=== PATIENT | male | born 1935 | race Caucasian/White ===

== ENCOUNTER 2019-02-01 21:36 | Emergency (ER) | payer OTHER ==
[~2019-02-01] VITALS: Ht 177.8 cm; Wt 108.9 kg
[~2019-02-01 21:36] MED LIST: ALBU3IS INH; AMLO10 PO; ASPI81CH PO; BACITO TP; BISM300CH PO; BUDE10.22 IH; CHOL10002 PO; HYDCHL25 PO; LOSA50 PO; MECL12.5 PO; METO25ER PO; MULVITMIND PO; Milk Of Ma400 MG/5 M PO; OMEP20ER PO; POLYOX WSR-3011 GM PO; POTCHL10ER PO; TAMS.4ER PO; Vibramycin100 MG PO
[2019-02-01 22:42] LABS: BASOPHILS ABSOLUTE AUTO 0.06 K/mm3 (0.00-0.23); BASOPHILS PERCENT AUTO 1 % (0-2); EOSINOPHILS ABSOLUTE AUTO 0.24 K/mm3 (0.00-0.68); EOSINOPHILS PERCENT AUTO 2 % (0-6); Hematocrit 42.5 % (37.0-53.0); Hemoglobin 14.1 g/dL (13.5-17.5); IMMATURE GRAN ABSOLUTE AUTO 0.03 K/mm3 (0.00-0.10); IMMATURE GRAN PERCENT AUTO 0 % (0-1); LYMPHOCYTES PERCENT AUTO 14 % (21-46); MONOCYTES ABSOLUTE AUTO 0.96 K/mm3 (0.16-1.47); MONOCYTES PERCENT AUTO 9 % (4-13); Mean Corpuscular HGB 32.3 pg (26.0-34.0); Mean Corpuscular HGB Conc 33.2 g/dL (31.5-36.5); Mean Corpuscular Volume 98 fL (80-100); Mean Platelet Volume 10.5 fL (9.1-12.4); NEUTROPHILS ABSOLUTE AUTO 7.63 K/mm3 (1.96-9.15); NEUTROPHILS PERCENT AUTO 73 % (41-73); Platelet Count 165 K/mm3 (150-400); RDW Coefficient Variation 12.4 % (11.7-14.2); RDW Standard Deviation 44.7 fL (35.1-46.3); Red Blood Cell Count 4.36 M/mm3 (4.30-5.90); White Blood Cell Count 10.42 K/mm3 (4.00-11.30)
[2019-02-01 23:01] LABS: Alanine Aminotransfer (ALT/SGP 26 U/L (12-78); Albumin, Blood 3.6 g/dL (3.4-5.0); Albumin/Globulin Ratio 0.9 (0.8-1.8); Alk Phos 108 U/L (50-136); Anion Gap 5 mmol/L (6-16); Aspartate Aminotrans (AST/SGOT 31 U/L (12-37); Bilirubin, Total 0.6 mg/dL (0.1-1.0); Blood Urea Nitrogen 18 mg/dL (8-24); Bun/Creatinine Ratio 25.6 (12.0-20.0); CO2, Blood 31 mmol/L (21-32); Calcium, Blood 9.6 mg/dL (8.5-10.1); Chloride, Blood 94 mmol/L (98-108); Globulin, Blood 4.2 g/dL (2.2-4.0); Glomerular Filtration Rate >60 (60-); Glucose, Blood 108 mg/dL (70-99); Potassium, Blood 3.9 mmol/L (3.5-5.5); Sodium, Blood 130 mmol/L (136-145); Total Protein, Blood 7.8 g/dL (6.4-8.2)
[2019-02-01 23:28] LABS: Troponin I <0.015 ng/mL (0.000-0.040)
[2019-02-01] MEDS ORDERED: Ultram50 MG PO (23:52)
[2019-02-01] MEDS ORDERED: Cipro500 MG PO (23:52)
== END 2019-02-02 01:00 | disposition home or self-care (01) ==
LOC: ER 21:36
PROVIDERS: Emergency Medicine
DX: H60.91 Unspecified otitis externa, right ear (principal); J44.9 Chronic obstructive pulmonary disease, unspecified; I10 Essential (primary) hypertension; K21.9 Gastro-esophageal reflux disease without esophagitis; Z86.73 Personal history of transient ischemic attack (TIA), and cerebral infarction without residual deficits; Z87.01 Personal history of pneumonia (recurrent); Z87.891 Personal history of nicotine dependence; Z79.899 Other long term (current) drug therapy
CPT/HCPCS: 36415; 80053; 84484; 85025; 93005; 93010; 94640; 99283-25

== ENCOUNTER 2019-02-02 16:39 | Emergency (ER) | payer OTHER ==
[~2019-02-02] VITALS: Ht 177.8 cm; Wt 108.9 kg
[~2019-02-02 16:39] MED LIST changes: +Cipro500 MG PO; +Ultram50 MG PO
[2019-02-02 17:20] LABS: BASOPHILS ABSOLUTE AUTO 0.08 K/mm3 (0.00-0.23); BASOPHILS PERCENT AUTO 1 % (0-2); EOSINOPHILS ABSOLUTE AUTO 0.26 K/mm3 (0.00-0.68); EOSINOPHILS PERCENT AUTO 3 % (0-6); Hematocrit 42.3 % (37.0-53.0); Hemoglobin 13.9 g/dL (13.5-17.5); IMMATURE GRAN ABSOLUTE AUTO 0.02 K/mm3 (0.00-0.10); IMMATURE GRAN PERCENT AUTO 0 % (0-1); LYMPHOCYTES ABSOLUTE AUTO 1.48 K/mm3 (0.84-5.20); LYMPHOCYTES PERCENT AUTO 19 % (21-46); MONOCYTES ABSOLUTE AUTO 0.74 K/mm3 (0.16-1.47); MONOCYTES PERCENT AUTO 10 % (4-13); Mean Corpuscular HGB 32.3 pg (26.0-34.0); Mean Corpuscular HGB Conc 32.9 g/dL (31.5-36.5); Mean Corpuscular Volume 98 fL (80-100); Mean Platelet Volume 10.5 fL (9.1-12.4); NEUTROPHILS ABSOLUTE AUTO 5.18 K/mm3 (1.96-9.15); NEUTROPHILS PERCENT AUTO 67 % (41-73); Platelet Count 163 K/mm3 (150-400); RDW Coefficient Variation 12.4 % (11.7-14.2); RDW Standard Deviation 45.3 fL (35.1-46.3); Red Blood Cell Count 4.31 M/mm3 (4.30-5.90); White Blood Cell Count 7.76 K/mm3 (4.00-11.30)
[2019-02-02 17:31] LABS: Alanine Aminotransfer (ALT/SGP 29 U/L (12-78); Albumin, Blood 3.6 g/dL (3.4-5.0); Albumin/Globulin Ratio 0.9 (0.8-1.8); Alk Phos 98 U/L (50-136); Anion Gap 3 mmol/L (6-16); Aspartate Aminotrans (AST/SGOT 41 U/L (12-37); Bilirubin, Total 0.5 mg/dL (0.1-1.0); Blood Urea Nitrogen 14 mg/dL (8-24); Bun/Creatinine Ratio 19.7 (12.0-20.0); CO2, Blood 35 mmol/L (21-32); Calcium, Blood 9.6 mg/dL (8.5-10.1); Chloride, Blood 97 mmol/L (98-108); Creatinine, Blood 0.71 mg/dL (0.60-1.20); Globulin, Blood 4.2 g/dL (2.2-4.0); Glomerular Filtration Rate >60 (60-); Glucose, Blood 97 mg/dL (70-99); Potassium, Blood 3.7 mmol/L (3.5-5.5); Sodium, Blood 135 mmol/L (136-145); Total Protein, Blood 7.8 g/dL (6.4-8.2)
== END 2019-02-02 21:08 | disposition home or self-care (01) ==
LOC: ER 16:39
PROVIDERS: Physician Assistant
DX: H60.91 Unspecified otitis externa, right ear (principal); J44.9 Chronic obstructive pulmonary disease, unspecified; I10 Essential (primary) hypertension; K21.9 Gastro-esophageal reflux disease without esophagitis; Z87.891 Personal history of nicotine dependence; Z87.01 Personal history of pneumonia (recurrent); Z86.73 Personal history of transient ischemic attack (TIA), and cerebral infarction without residual deficits; Z79.899 Other long term (current) drug therapy
CPT/HCPCS: 36415; 70450; 80053; 85025; 99284-25; A9270

== ENCOUNTER 2019-03-22 10:23 | Emergency (ER) | payer OTHER ==
[~2019-03-22] VITALS: Ht 177.8 cm; Wt 104.3 kg
[2019-03-22 11:11] LABS: BASOPHILS ABSOLUTE AUTO 0.11 K/mm3 (0.00-0.23); BASOPHILS PERCENT AUTO 1 % (0-2); EOSINOPHILS ABSOLUTE AUTO 0.41 K/mm3 (0.00-0.68); EOSINOPHILS PERCENT AUTO 5 % (0-6); Hematocrit 43.8 % (37.0-53.0); Hemoglobin 14.3 g/dL (13.5-17.5); IMMATURE GRAN ABSOLUTE AUTO 0.02 K/mm3 (0.00-0.10); IMMATURE GRAN PERCENT AUTO 0 % (0-1); LYMPHOCYTES PERCENT AUTO 28 % (21-46); MONOCYTES PERCENT AUTO 8 % (4-13); Mean Corpuscular HGB 31.6 pg (26.0-34.0); Mean Corpuscular HGB Conc 32.6 g/dL (31.5-36.5); Mean Corpuscular Volume 97 fL (80-100); Mean Platelet Volume 10.9 fL (9.1-12.4); NEUTROPHILS ABSOLUTE AUTO 4.36 K/mm3 (1.96-9.15); NEUTROPHILS PERCENT AUTO 57 % (41-73); Platelet Count 166 K/mm3 (150-400); RDW Coefficient Variation 12.4 % (11.7-14.2); Red Blood Cell Count 4.52 M/mm3 (4.30-5.90)
[2019-03-22] MEDS ORDERED: ALBU3IS INH (11:21)
[2019-03-22] MEDS ORDERED: ALBU90OI (11:22)
[2019-03-22] MEDS ORDERED: ALFUZOSIN HCL10 MG PO (11:22)
[2019-03-22] MEDS ORDERED: Geri-Hydrolac140 GM (11:22)
[2019-03-22] MEDS ORDERED: Duoneb 2.5-0.5 M3 ML (11:22)
[2019-03-22 11:23] LABS: Alanine Aminotransfer (ALT/SGP 26 U/L (12-78); Albumin, Blood 3.4 g/dL (3.4-5.0); Albumin/Globulin Ratio 0.8 (0.8-1.8); Alk Phos 128 U/L (50-136); Anion Gap 3 mmol/L (6-16); Aspartate Aminotrans (AST/SGOT 21 U/L (12-37); Bilirubin, Total 0.5 mg/dL (0.1-1.0); Blood Urea Nitrogen 13 mg/dL (8-24); Bun/Creatinine Ratio 17.4 (12.0-20.0); CO2, Blood 31 mmol/L (21-32); Calcium, Blood 9.5 mg/dL (8.5-10.1); Chloride, Blood 104 mmol/L (98-108); Creatinine, Blood 0.75 mg/dL (0.60-1.20); Globulin, Blood 4.2 g/dL (2.2-4.0); Glomerular Filtration Rate >60 (60-); Glucose, Blood 96 mg/dL (70-99); Potassium, Blood 4.3 mmol/L (3.5-5.5); Sodium, Blood 138 mmol/L (136-145); Total Protein, Blood 7.6 g/dL (6.4-8.2); Troponin I <0.015 ng/mL (0.000-0.040)
[2019-03-22] MEDS ORDERED: ZYRTEC10 M2 PO (11:23)
[2019-03-22] MEDS ORDERED: ASPI325 (11:23)
[2019-03-22] MEDS ORDERED: ASCO500 PO (11:23)
[2019-03-22] MEDS ORDERED: CIPHYDOTSU (11:24)
[2019-03-22] MEDS ORDERED: Vitamin D2000 UNIT PO (11:24)
[2019-03-22] MEDS ORDERED: CYAN500 PO (11:25)
[2019-03-22] MEDS ORDERED: Colace100 MG PO (11:25)
[2019-03-22] MEDS ORDERED: Flonase 0.05% N16 GM (11:25)
[2019-03-22] MEDS ORDERED: Perforomis20 MCG/2 M (11:25)
[2019-03-22] MEDS ORDERED: HYDR454TO (11:26)
[2019-03-22] MEDS ORDERED: Cough Syru100 MG/5 M (11:26)
[2019-03-22] MEDS ORDERED: HYDCHL25 PO (11:26)
[2019-03-22] MEDS ORDERED: LOSARTAN POTAS100 MG PO (11:26)
[2019-03-22] MEDS ORDERED: METO25 PO (11:27)
[2019-03-22] MEDS ORDERED: NITR.4SL (11:27)
[2019-03-22] MEDS ORDERED: OMEPRAZOLE20 MG PO (11:27)
[2019-03-22] MEDS ORDERED: POTA10T PO (11:28)
[2019-03-22] MEDS ORDERED: Oxybutynin Chlor5 M1 PO (11:28)
[2019-03-22] MEDS ORDERED: AMLO10 PO (11:29)
== END 2019-03-22 12:55 | disposition home or self-care (01) ==
LOC: ER 10:23
PROVIDERS: Emergency Medicine
DX: J40 Bronchitis, not specified as acute or chronic (principal); R07.89 Other chest pain; Z88.8 Allergy status to other drugs, medicaments and biological substances; I10 Essential (primary) hypertension; J44.9 Chronic obstructive pulmonary disease, unspecified; Z79.51 Long term (current) use of inhaled steroids
CPT/HCPCS: 71046; 80053; 83880; 84484; 85025; 93005; 93010; 99285-25

== ENCOUNTER 2020-08-25 08:07 | Inpatient (IN) | payer OTHER, MEDICARE ==
[~2020-08-25] VITALS: Ht 172.7 cm; Wt 95.8 kg
[~2020-08-25 08:07] MED LIST changes: +ALBU90OI; +ALFUZOSIN HCL10 MG PO; +ASCO500 PO; +ASPI325; +CIPHYDOTSU; +CYAN500 PO; +Colace100 MG PO; +Cough Syru100 MG/5 M; +Duoneb 2.5-0.5 M3 ML; +Flonase 0.05% N16 GM; +Geri-Hydrolac140 GM; +HYDR454TO; +LOSARTAN POTAS100 MG PO; +METO25 PO; +NITR.4SL; +OMEPRAZOLE20 MG PO; +Oxybutynin Chlor5 M1 PO; +POTA10T PO; +Perforomis20 MCG/2 M; +Vitamin D2000 UNIT PO; +ZYRTEC10 M2 PO
[2020-08-25 08:38] LABS: BASOPHILS ABSOLUTE AUTO 0.09 K/mm3 (0.00-0.23); BASOPHILS PERCENT AUTO 1 % (0-2); EOSINOPHILS ABSOLUTE AUTO 0.37 K/mm3 (0.00-0.68); EOSINOPHILS PERCENT AUTO 3 % (0-6); Hematocrit 48.3 % (37.0-53.0); Hemoglobin 15.5 g/dL (13.5-17.5); IMMATURE GRAN ABSOLUTE AUTO 0.02 K/mm3 (0.00-0.10); IMMATURE GRAN PERCENT AUTO 0 % (0-1); LYMPHOCYTES PERCENT AUTO 21 % (21-46); MONOCYTES ABSOLUTE AUTO 0.77 K/mm3 (0.16-1.47); MONOCYTES PERCENT AUTO 7 % (4-13); Mean Corpuscular HGB 31.1 pg (26.0-34.0); Mean Corpuscular HGB Conc 32.1 g/dL (31.5-36.5); Mean Corpuscular Volume 97 fL (80-100); Mean Platelet Volume 10.5 fL (9.1-12.4); NEUTROPHILS PERCENT AUTO 68 % (41-73); Platelet Count 184 K/mm3 (150-400); RDW Coefficient Variation 12.8 % (11.7-14.2); RDW Standard Deviation 45.4 fL (35.1-46.3); Red Blood Cell Count 4.98 M/mm3 (4.30-5.90); White Blood Cell Count 11.55 K/mm3 (4.00-11.30)
[2020-08-25 08:57] LABS: Alanine Aminotransfer (ALT/SGP 19 U/L (12-78); Albumin, Blood 3.6 g/dL (3.4-5.0); Albumin/Globulin Ratio 0.8 (0.8-1.8); Alk Phos 101 U/L (50-136); Anion Gap 6 mmol/L (6-16); Aspartate Aminotrans (AST/SGOT 28 U/L (12-37); Bilirubin, Total 0.7 mg/dL (0.1-1.0); Blood Urea Nitrogen 17 mg/dL (8-24); CO2, Blood 31 mmol/L (21-32); Calcium, Blood 10.1 mg/dL (8.5-10.1); Chloride, Blood 102 mmol/L (98-108); Globulin, Blood 4.4 g/dL (2.2-4.0); Glomerular Filtration Rate >60 (60-); Glucose, Blood 126 mg/dL (70-99); Potassium, Blood 3.7 mmol/L (3.5-5.5); Sodium, Blood 139 mmol/L (136-145); Troponin I <0.015 ng/mL (0.000-0.040)
--- NOTE | 2020-08-25 16:39 | NUR ---
DR CALDWELL SAW PT, ORDERED CT TO SUCTION UNTIL 1900, THEN TO WATERSEAL FOR 12 HOURS UNTIL XRAY IN MORNING. DR WILL REVIEW XRAY AND ROUND ON PT IN MORNING.
--- NOTE | 2020-08-26 03:55 | NUR ---
CALL RECIEVED FROM PT AT APPROX [phone]. PT FOUND SITTING ON EDGE OF BED WITH CHEST TUBE NOT IN PLACE. CONTINUOUS PULSE OX READING O2 95% ON 3LO2 VIA NC. STERILE GAUZE DRESSING AND TEGADERM IMMEDIATELY PLACED OVER INSERTION SITE WITH TIGHT SEAL. NO DRG NOTED TO SITE. LUNGS DIMINISHED WITH EXPIRTATORY WHEEZE WHICH IS UNCHANGED FROM PREVIOUS ASSESSMENT. LUNGS MORE DIMINISHED ON RT SIDE WHICH AGAIN, IS UNCHANGED FROM PREVIOUS ASSESSMENT. PT DOES NOT APPEAR TO BE IN RESPIRATORY DISTRESS AT THIS TIME. CALL PLACED TO HOSPITALIST DR. HENAO. NEW ORDER FOR STAT CHEST XRAY. MOLD YARD WORKER NOTIFIED OF NEW ORDER.
[2020-08-26 04:22] LABS: BASOPHILS ABSOLUTE AUTO 0.08 K/mm3 (0.00-0.23); BASOPHILS PERCENT AUTO 1 % (0-2); EOSINOPHILS ABSOLUTE AUTO 0.34 K/mm3 (0.00-0.68); EOSINOPHILS PERCENT AUTO 3 % (0-6); Hematocrit 43.8 % (37.0-53.0); Hemoglobin 14.2 g/dL (13.5-17.5); IMMATURE GRAN ABSOLUTE AUTO 0.03 K/mm3 (0.00-0.10); IMMATURE GRAN PERCENT AUTO 0 % (0-1); LYMPHOCYTES ABSOLUTE AUTO 1.92 K/mm3 (0.84-5.20); LYMPHOCYTES PERCENT AUTO 18 % (21-46); MONOCYTES ABSOLUTE AUTO 0.87 K/mm3 (0.16-1.47); MONOCYTES PERCENT AUTO 8 % (4-13); Mean Corpuscular HGB 31.1 pg (26.0-34.0); Mean Corpuscular HGB Conc 32.4 g/dL (31.5-36.5); Mean Corpuscular Volume 96 fL (80-100); Mean Platelet Volume 10.4 fL (9.1-12.4); NEUTROPHILS ABSOLUTE AUTO 7.22 K/mm3 (1.96-9.15); NEUTROPHILS PERCENT AUTO 69 % (41-73); Platelet Count 159 K/mm3 (150-400); RDW Coefficient Variation 12.8 % (11.7-14.2); RDW Standard Deviation 45.4 fL (35.1-46.3); Red Blood Cell Count 4.56 M/mm3 (4.30-5.90); White Blood Cell Count 10.46 K/mm3 (4.00-11.30)
[2020-08-26 04:40] LABS: Alanine Aminotransfer (ALT/SGP 21 U/L (12-78); Albumin, Blood 3.1 g/dL (3.4-5.0); Albumin/Globulin Ratio 0.8 (0.8-1.8); Alk Phos 85 U/L (50-136); Anion Gap 4 mmol/L (6-16); Aspartate Aminotrans (AST/SGOT 31 U/L (12-37); Bilirubin, Total 0.7 mg/dL (0.1-1.0); Blood Urea Nitrogen 17 mg/dL (8-24); Bun/Creatinine Ratio 20.9 (12.0-20.0); CO2, Blood 31 mmol/L (21-32); Calcium, Blood 9.1 mg/dL (8.5-10.1); Chloride, Blood 104 mmol/L (98-108); Creatinine, Blood 0.81 mg/dL (0.60-1.20); Globulin, Blood 4.1 g/dL (2.2-4.0); Glomerular Filtration Rate >60 (60-); Glucose, Blood 113 mg/dL (70-99); Potassium, Blood 3.5 mmol/L (3.5-5.5); Sodium, Blood 139 mmol/L (136-145); Total Protein, Blood 7.2 g/dL (6.4-8.2)
--- NOTE | 2020-08-26 04:40 | NUR ---
SPOKE WITH DR. HENAO WHO REVIEWED RECENT CHEST XRAY. DR. HENAO WANTING TO LEAVE CHEST TUBE OUT AT THIS TIME. WILL CONTACT PROGRAM SUPERVISOR AT SHIFT CHANGE TO REVIEW IMAGING AND GIVE UPDATE ON PT STATUS. NO CHANGES IN RESPIRATORY STATUS. PT CURRENTLY SITTING UP IN BED. O2 95% ON 3L VIA NC.
--- NOTE | 2020-08-26 07:45 | NUR ---
SPOKE WITH DR. CALDWELL REGARDING CHEST TUBE REMOVAL AND STAT CHEST XRAY COMPLETION. PLAN FOR ADDITIONAL XRAY THIS MORNING.
--- NOTE | 2020-08-26 11:13 | NUR ---
TELE BOX VERIFIED AT THIS TIME WITH ALPHONSO GAMBOA AFIB WITH HR OF 106. WILL CTM.
--- NOTE | 2020-08-26 12:39 | NUR ---
Patient is sitting on EOB and alert. Patient immediately tells me about his medical issues but then talks at length telling his life story. Patient shares about the pain, loneliness and unhealthy behaviors that have characterized his life. He also explains about his spiritual journey and his upbringing in the [employer] and the long gap where he had no jessie to his return back to the [employer] side of [employer]. He expresses the pain of family unit complications and how his jessie has been the only thing that has brought him through these later years. I reinforce helpful attitudes and practices, explore sources of meaning and value, hear confession and provide therapeutic listening, pastoral careers counsellor and prayer. Patient responds well and shows signs increased hope. I will continue to remain available to patient and family. of
[2020-08-26 13:25] LABS: International Normalized Ratio 1.04; Prothrombin Time Results 11.2 Sec (9.7-11.5)
--- NOTE | 2020-08-26 15:01 | NUR ---
PT TO IMAGING FOR CHEST TUBE PLACEMENT AT THIS TIME.
--- NOTE | 2020-08-26 18:05 | NUR ---
CHEST TUBE: PT BACK TO ROOM FROM IMAGING AT ABOUT 1600 WITH NEW CHEST TUBE TO R LOWER CHEST WALL. TUBE SITE WNL AND DRESSING SECURE. THE OLD CHEST TUBE SITE AT R UPPER CHEST IS JEFFRY WITH BRUISING AND SUTURES VISABLE. ICU RN GYNECOLOGY AND IN ROOM AT ABOUT 1610 TO HELP SET UP CHEST TUBE [employer] DRAINAGE SYSTEM. CHEST TUBE TO CONTINUIOUS SUCTION AT THIS TIME, NO AIR LEAK NOTED. PT HAS EVEN CHEST RISE AND FALL, DENIES ANY NEW SOB. SP02 AT 96% ON 1L O2. WILL CTM.
--- NOTE | 2020-08-26 18:16 | NUR ---
SUMMARY: READ PREVIOUS NOTES. PT IS DOING WELL VSS, A/O. NEW CHEST TUBE SITE WNL. PT DENIES NEW SOB HAS RECEIVED ALBUTEROL TX PRN TODAY. LUNGS HAVE EXPIRATORY WHEEZE. SP02 CONTINUES TO BE STABLE ON 1L NC. PT IS SBA DUE TO TUBE AND LINES, NEEDS REMINDERS TO USE CALL LIGHT. PT SITTING UP IN RECLINER CURRENTLY. HAS DENIED PAIN TODAY. PT HAS HAD INTERMITTANT TACHYCARDIA WITH AFIB TODAY PER LIFE ENRICHMENT MANAGER, PRN LOPRESSOR GIVEN, NO C/O CHEST PAIN. NO ACUTE SAFETY CONCERNS AT THIS TIME. WILL CTM AND REPORT TO GAVIN RODGERS.
--- NOTE | 2020-08-27 08:18 | NUR ---
PT C/O SOB.2L SATS 92%.PT WITH WHEEZING NOTED.CALLED FOR NEB WHICH PT IS RECEIVING NOW.CHEST TUBE REMAINS INTACT AND PATENT,WITH NO NOTED CHANGES.PER RADIOLOGY, THE RADIOLOGIST IS READING FILMS FROM THIS AM NOW.I ASKED THEY PLEASE EXPEDITE REPORT AND FAX TO SECOND FLOOR [facility] WHEN AVAILABLE.MESSAGE SENT TO DR CALDWELL.TELE WITH NO REPORTED CHANGES EXCEPT INCREASE IN HEART RATE TO 126.
--- NOTE | 2020-08-27 09:15 | NUR ---
PTS CXR REPORT APPEARS SOME IMPROVED IN REGARDS TO PNEUMO,NOTES COPD AND INTERSTITIAL LUNG DZ .PT DOES REPORT FEELING BETTER AFTER NEBS.
--- NOTE | 2020-08-27 14:36 | NUR ---
in to see ptRudy
--- NOTE | 2020-08-27 18:49 | NUR ---
SUMMARY PT WAS SOB WHEN CAME ON SHIFT THIS AM. HAD EXP WHEEZING W/TIGHT LUNG SOUNDS. BETTER AFTER BREATHING TX. PT HAS CONTINUED TO STATE FEELS BETTER T/O SHIFT. USING IS AND FLUTTER. EXPELLING SMALL AMOUNT THICK LIGHT MENENDEZ SPUTUM. CHEST TUBE PUTTING OUT SEROUS FLUID. PT VOIDING DARK YELLOW URINE.
--- NOTE | 2020-08-28 07:38 | NUR ---
SUMMARY PT NEEEDS REMINDING TO CALL FOR ASSIST FOR ANY ACTIVITY DUE TO FORGETFULLNESS. PT FORGETS ABOUT CHEST TUBE AND LINES.REQUIRING NEBS TONIGHT. CONT WITH 02. ONLY 5ML SEROUS DRNG PER CT THSI SHIFT.
--- NOTE | 2020-08-28 08:31 | NUR ---
radiology contacted ash rn and advised pneumo is significantly larger and they recommend a larger tube be placeed.i called dr bishop and advise. he will be here soon to replace tube with larger one.hospitalist notified by ash rn.pt currently c/o mild sob although recently had nebulizer.
--- NOTE | 2020-08-28 09:45 | NUR ---
CHEST TUBE THIS RN TO ROOM [address] AGUIRRE WITH NEW CHEST TUBE INSERTION R/T LARGE PNEUMOTHORAX. 28 FR CHEST TUBE PLACED TO RIGHT LATERAL CHEST WALL UNDER STERILE TECHNIQUE BY DR. AGUIRRE. CHEST TUBE CONNECTED TO OCEAN DRAIN WITH -20CM SUCTION WITH LARGE AMOUNT OF AIR NOTED IN AIR LEAK CHAMBER. SMALL AMOUNT BRIGHT RED BLOOD NOTED IN CHEST TUBE. TUBE DRESSED WITH PETROLEUM GAUZE, SPLIT GAUZE AND TEGADERM. PT TOLERATED PROCEDURE WELL.
--- NOTE | 2020-08-28 09:56 | NUR ---
THIS NURSE RECIEVED A CALL FROM THE RADIOLOGIST EARLY THIS MORNING THAT THIS PATIENT'S PNEUMO HAD INCREASED A SIGNIFICANT AMOUNT AND SUGGESTED A LARGER TUBE TO BE PLACED. DR. AGUIRRE WAS NOTIFIED AND WAS IN THE ROOM IMMEDIATELY. ICU CHARGE NURSE BANDAR CAME IN TO ASSIST WITH PLACING THE NEW CHEST TUBE. PATIENT NOW HAS A NEW CHEST TUBE IN THE RIGHT SIDE. CHEST TUBE IS SECURED AND SUCTIONING RED OUTPUT. X-RAY HAS ALREADY CAME IN AND TAKEN PICTURES. PATIENT IS ALERT AND ORIENTED X4. VS ARE WNL. PATIENT REPORTS NO PAIN AT THIS TIME BUT HAS EMAR ORDERS PRN. HE IS SITTING UP IN A CHAIR RIGHT NOW EATING BREAKFAST. CALL LIGHT WITHIN REACH. TAB ALARM IS ATTACHED TO PATIENTS GOWN SINCE PATIENT CAN BE FORGETFUL AT TIMES. WILL CONTINUE TO MONITOR CHEST TUBE.
--- NOTE | 2020-08-28 16:18 | NUR ---
SHIFT SUMMARY: SPONTANEOUS PNEUMO PATIENT IS ALERT AND ORIENTED X4 THOUGH CAN BE FORGETFUL AT TIMES. BED AND TAB ALARMS ARE ON. VS ARE WNL AND IS ON 3L NC OXYGEN. PAIN IS MANAGED WITH IV FENTANYL. PATIENT HAD A NEW CHEST TUBE PLACED. SEE PRIOR NOTE FOR MORE DETAILED INFORMATION. IT IS SUCTIONING AND IS SECURED IN PLACE. PATIENT DENIES SHORTNESS OF BREATH AT THIS TIME. BIOX IS ON AND SHOWS >90% OXYGEN SATS. CALL LIGHT WITHIN REACH. PATIENT IS CURRENTLY SITTING UP IN A CHAIR. PATIENT IS TOLERATING PO INTAKE AND IS VOIDING. THE PLAN IS TO CONTINUE TO MONITOR CHEST TUBE AND MANAGE PAIN.
--- NOTE | 2020-08-29 04:54 | NUR ---
SHIFT SUMMARY SPONTANEOUS PNEUMO WITH CHEST TUBE PLACEMENT YESTERDAY. PT AOX4. HE HASN'T BEEN FORGETFUL DURING THE SHIFT. HE HAS BEEN USING HIS CALL LIGHT APPROPRIATELY. HE IS ALSO CAREFUL WITH HIS CHEST TUBE. HE WAS PAINFUL AT THE BEGINNING OF THE SHIFT. HE STATES THAT HIS R CHEST IS SORE. PAIN MANAGED WITH FENTANYL 50MCG LAST NIGHT X1. THIS MORNING PT STS THAT THE PAIN IS MUCH BETTER, DOESN'T BOTHER HIM SO MUCH. HE HAS BEEN USING URINAL (STANDING AT THE SIDE OF THE BED). VOIDING WELL. BM X1 SMALL AND SOFT. CHEST TUBE REMAIN INTACT, WALL SUCTION, DRAINING 90. HE IS ON TELE -AFIB AT 100'S. PT HAD SOME BREATHING TREATMENTS. PT WAS ALSO HAVE MILD PROD COUGH. PT ON 3L 02, SATURATING ABOVE 90%. CALL LIGHT WITHIN REACH. WILL PROVIDE REPORT TO ONCOMING NURSE.
--- NOTE | 2020-08-29 18:28 | NUR ---
SHIFT SUMMARY PT A&OX4, [place], TELE AFIB 103. RIGHT CHEST TUBE TO CONTINUOUS SUCTION. PAIN TREATED WITH ULTRAM. STEVEN PO, DENIES N&V. SAT UP ON SIDE OF BED FOR MEALS, REPOSITIONS SELF WELL. VOIDING WELL, URINAL/BSC. WILL REPORT TO ONCOMING NOC RN.
--- NOTE | 2020-08-30 03:59 | NUR ---
SHIFT SUMMARY NO ACUTE CHANGES OVERNIGHT. PT'S PAIN IS WELL-TOLERATED AND MANAGED. PAIN MANAGED WITH ULTRAM AND TYLENOL. CHEST TUBE IN PLACED, INTACT AND IN CONTINOUS SUCTIONING WITH 70 OUTPUT. PT HAD BREATHING TX, USES I/S, ENC DEEP BREATH AND COUGH W/ SPLINTING. PT HAS MILD NON PRODUCTIVE COUGH. HE IS ON 2L 02, N/C SATURATING OVER 95%. HE IS ON TELE, AFIB AT 98 PER JUNE/. HE ALERT AND ORIENTED AND USES CALL LGIHT APPROPRIATELY. PT SLEPT GOOD T/O SHIFT AND HAD SOME SNACKS X2. CALL IN WITHIN REACH. WILL PROVIDE REPORT TO ONCOMING NURSE.
--- NOTE | 2020-08-30 15:58 | NUR ---
SHIFT SUMMARY PT A&OX4, VSS/2.5NC (BASELINE), TELE AFIB 90-110 BPM, [place], FORGETFUL, PLEASANT AND PATIENT. CHEST TUBE TO CONTINUOUS SUCTION, 100 OUTPUT. STAND BEDSIDE FOR URINAL, VOIDING WELL. STEVEN PO. PRODUCTIVE COUGH, USING I.S. AND FLUTTER VALVE. PT ABLE TO REPOSITION SELF TO SIDE OF BED AND BACK TO BED. PAIN MANAGED WITH ULTRAM AND TYLENOL PRN. WILL REPORT TO NEXT RN.
--- NOTE | 2020-08-30 19:35 | NUR ---
RECEIVED REPORT AND ASSUMED CARE OF PT. HE STATES THAT HE "THREW UP MY DINNER" LIQUID AND CORN VISIBLE IN TRASH CAN. HE IS COUGHING INTERMITTENTLY, DENIES NAUSEA AT THIS TIME. O2 SATS MAINTAINING, CONTINUOUS BIOX IN PLACE. CHEST TUBE PATENT, TAPE TO RLQ REPLACED. USING URINAL WITHOUT DIFFICULTY. CALL LIGHT IN REACH. [facility].
[2020-08-31 04:49] LABS: BASOPHILS ABSOLUTE AUTO 0.05 K/mm3 (0.00-0.23); BASOPHILS PERCENT AUTO 1 % (0-2); EOSINOPHILS ABSOLUTE AUTO 0.44 K/mm3 (0.00-0.68); EOSINOPHILS PERCENT AUTO 6 % (0-6); Hemoglobin 13.9 g/dL (13.5-17.5); IMMATURE GRAN ABSOLUTE AUTO 0.02 K/mm3 (0.00-0.10); IMMATURE GRAN PERCENT AUTO 0 % (0-1); LYMPHOCYTES PERCENT AUTO 21 % (21-46); MONOCYTES ABSOLUTE AUTO 0.67 K/mm3 (0.16-1.47); MONOCYTES PERCENT AUTO 8 % (4-13); Mean Corpuscular HGB 30.8 pg (26.0-34.0); Mean Corpuscular HGB Conc 31.6 g/dL (31.5-36.5); Mean Corpuscular Volume 98 fL (80-100); Mean Platelet Volume 11.2 fL (9.1-12.4); NEUTROPHILS ABSOLUTE AUTO 5.14 K/mm3 (1.96-9.15); NEUTROPHILS PERCENT AUTO 64 % (41-73); Platelet Count 168 K/mm3 (150-400); RDW Coefficient Variation 12.3 % (11.7-14.2); RDW Standard Deviation 44.5 fL (35.1-46.3); Red Blood Cell Count 4.51 M/mm3 (4.30-5.90); White Blood Cell Count 8.02 K/mm3 (4.00-11.30)
[2020-08-31 05:04] LABS: Albumin, Blood 2.9 g/dL (3.4-5.0); Anion Gap 0 mmol/L (6-16); Blood Urea Nitrogen 14 mg/dL (8-24); Bun/Creatinine Ratio 17.2 (12.0-20.0); CO2, Blood 35 mmol/L (21-32); Calcium, Blood 9.9 mg/dL (8.5-10.1); Chloride, Blood 101 mmol/L (98-108); Creatinine, Blood 0.82 mg/dL (0.60-1.20); Glomerular Filtration Rate >60 (60-); Glucose, Blood 98 mg/dL (70-99); Potassium, Blood 4.7 mmol/L (3.5-5.5); Sodium, Blood 136 mmol/L (136-145)
--- NOTE | 2020-08-31 05:59 | NUR ---
SHIFT SUMMARY: LAURE AROUSES EASILY AND RESPONDS APPROPRIATELY. VSS, NO ACUTE EVENTS OVERNIGHT. BED ALARM ON FOR SAFETY, HE HAS NOT USED THE CALL LIGHT THIS SHIFT. HE IS USING THE URINAL WITHOUT DIFFICULTY, TOLERATING PO INTAKE WELL. CHEST TUBE PATENT, MAINTAINING SATS ON 2.5 L VIA NC, CONTINUOUS BIOX IN PLACE. HE IS LYING IN BED WITH THE CALL LIGHT IN REACH. WILL REPORT TO DAY SHIFT RN.
--- NOTE | 2020-08-31 14:49 | NUR ---
Patient is sitting on a chair and alert. Patient tells me that it has been a long stay in the hospital and that he is anxious to get home and take care of his cat. 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 I offer to help but he denies the need at the moment. I explain how to work the rm phone as well. Patient shares about how the medical issues pull at his spiritual/emotional health. I listen empathically and provide spiritual guidance and prayer. Patient responds well and shows of an elevated mood.
--- NOTE | 2020-08-31 18:32 | NUR ---
SUMMARY DR WALKER PLACED NEW CHEST TUBE IN ROOM THIS AFTERNOON. PT SLEEPY BUT WAKES TO VOICE SINCE CHEST TUBE PLACEMENT. SCANT AMT SS DRAINAGE NOTED IN TUBING. BED ALARM ON. CALL LIGHT IN REACH.
--- NOTE | 2020-08-31 19:04 | NUR ---
REPORT GIVEN TO ONCOMING SHIFT.
--- NOTE | 2020-09-01 04:27 | NUR ---
SHIFT SUMMARY: PT DROWSY MOST OF SHIFT. IN BEGINNING OF SHIFT PT CONFUSED AND ATTEMPTING TO PULL AT TUBES/LINES/CORDS. PT ABLE TO RECALL A PROCEDURE OCCURING EARLIER IN THE DAY R/T PAIN IN RT UPPER CHEST AND RT ARM. BED ALARM ON FOR SAFETY. CHEST TUBE REMAINS INTACT WITH DRESSING IN PLACE. CONTINUOUS SUCTION ON AND DRAINING A SMALL AMOUNT OF SEROSANGUINOUS DRG. SMALL AMOUNT OF CREPITUS NOTED TO RT CHEST NEAR PREVIOUS CHEST TUBE SITES. PT HAD ONE INCONTINENT VOID THIS SHIFT, OTHERWISE VOIDING IN URINAL WITH ASSISTANCE. PT OUT OF BED TO [facility] WITH 3 ASSIST R/T MULTIPLE TUBES. PT HAD ONE SMALL BM. PT OCC C/O FEELING LIKE THERE IS SOMETHING STUCK IN THE BACK OF HIS THROAT. PT MOSTLY COUGHING UP THICK YELLOW SPUTUM WITH A SMALL AMOUNT OF EMESIS. A/FIB IN 90'S-100 PER TELE. CONTINUOUS BIOX IN PLACE. PLAN FOR REPEAT CHEST XRAY THIS MORNING.
--- NOTE | 2020-09-01 11:51 | NUR ---
PT REC'G BREATHING TX.
--- NOTE | 2020-09-01 17:15 | NUR ---
SUMMARY NO ACUTE CHANGES T/O THIS SHIFT. PT AGITATED THIS AM, WORRIED ABOUT BEING DC'D AND BEING "STUCK" IN BED. PT MORE RELAXED AFTER ASSISTED TO RECLINER AND DR WALKER SPOKE TO PT ABOUT TX PLAN. PT HAS SAT UP T/O SHIFT. PT WORRIED ABOUT CONSTIPATION; OBTAINED ORDER FOR MIRALAX AND ADMINISTERED. CHEST TUBE PUTTING OUT SS DRAINAGE. NO AIR LEAK PRESENTLY NOTED. TAB ALARM ON FOR SAFETY. PT HAS USED CALL LIGHT T/O SHIFT.
[2020-09-02 04:54] LABS: BASOPHILS ABSOLUTE AUTO 0.04 K/mm3 (0.00-0.23); BASOPHILS PERCENT AUTO 1 % (0-2); EOSINOPHILS ABSOLUTE AUTO 0.34 K/mm3 (0.00-0.68); EOSINOPHILS PERCENT AUTO 4 % (0-6); Hematocrit 43.6 % (37.0-53.0); IMMATURE GRAN ABSOLUTE AUTO 0.03 K/mm3 (0.00-0.10); IMMATURE GRAN PERCENT AUTO 0 % (0-1); LYMPHOCYTES ABSOLUTE AUTO 1.73 K/mm3 (0.84-5.20); LYMPHOCYTES PERCENT AUTO 21 % (21-46); MONOCYTES ABSOLUTE AUTO 0.73 K/mm3 (0.16-1.47); MONOCYTES PERCENT AUTO 9 % (4-13); Mean Corpuscular HGB 30.8 pg (26.0-34.0); Mean Corpuscular HGB Conc 32.1 g/dL (31.5-36.5); Mean Corpuscular Volume 96 fL (80-100); Mean Platelet Volume 11.1 fL (9.1-12.4); NEUTROPHILS ABSOLUTE AUTO 5.52 K/mm3 (1.96-9.15); NEUTROPHILS PERCENT AUTO 66 % (41-73); Platelet Count 190 K/mm3 (150-400); RDW Coefficient Variation 12.3 % (11.7-14.2); RDW Standard Deviation 43.5 fL (35.1-46.3); Red Blood Cell Count 4.54 M/mm3 (4.30-5.90); White Blood Cell Count 8.39 K/mm3 (4.00-11.30)
--- NOTE | 2020-09-02 05:18 | NUR ---
SHIFT SUMMARY: NO ACUTE CHANGES THIS SHIFT. PT OCCASIONALLY CONFUSED STATING "I DON'T EVEN KNOW WHERE I AM" AND CONERNED ABOUT THE PLACEMENT OF FURNITURE IN THE ROOM. PT REORIENTS EASILY. PT ALSO CONCERNED REGARDING HIS FINANCES AND IS WORRIED HE WILL NOT BE ABLE TO AFFORD THIS HOSPITAL STAY. CHEST TUBE IN PLACE WITH CONTINUOUS SUCTION DRAINING SS FLUID. A/FIB IN 90-LOW 100'S PER TELE. HR INCREASING >120 WITH ACTIVITY. PT STANDING ON EDGE OF BED WITH 1 MINIMAL ASSIST TO USE URINAL. PLAN FOR REPEAT CHEST XRAY THIS MORNING.
--- NOTE | 2020-09-02 07:50 | NUR ---
pt sitting up in bed rt by for robert tx pt stated feeling ok today dressing inplace ct to wall sx
--- NOTE | 2020-09-02 10:25 | NUR ---
pt up in recliner resting
--- NOTE | 2020-09-02 10:51 | NUR ---
pt woke up stated unable to breathe called rt for neb tx also had pt use his flutter valve able to cough up white light yellow mucus
--- NOTE | 2020-09-02 14:10 | NUR ---
dr celestin by to see pt clamped pt ct if pt has any sob or cp or hypoxia to open sx and get stat chest xray and call him
--- NOTE | 2020-09-02 15:47 | NUR ---
dr gallardo by to see pt
--- NOTE | 2020-09-02 17:25 | NUR ---
assisted back into bed dr celestin back by earlier to keep ct clamped in place will check on pt again in am
--- NOTE | 2020-09-03 04:44 | NUR ---
SHIFT SUMMARY: LAURE AROUSES EASILY AND RESPONDS APPROPRIATELY. VSS, NO ACUTE EVENTS OVERNIGHT. CHEST TUBE TO R UPPER CHEST WALL REMAINS CLAMPED. MAINTAINING SATS ON 2 L VIA NC, CONTINUOUS BIOX IN PLACE. HE IS USING THE URINAL WITHOUT DIFFICULTY. OCCASIONAL CONFUSION NOTED, REORIENTS EASILY. HE HAS BEEN USING THE CALL LIGHT THIS SHIFT. HE IS LYING IN BED WITH THE CALL LIGHT IN REACH. WILL REPORT TO DAY SHIFT RN.
--- NOTE | 2020-09-03 16:41 | NUR ---
SHIFT SUMMARY PT A&OX4, VSS/2.5LNC(BASELINE), BIOX ON, TELE AFIB 90-110. CHEST TUBE REMOVED AT [address] WALKER, PT DENIES CP/SOB; AMBULATING HALLWAYS/BRP/CHAIR/BED WITH SBA/FWW. VOIDING WELL, BM TODAY. STEVEN PO INTAKE. WILL REPORT TO ONCOMING GAVIN RN.
--- NOTE | 2020-09-03 19:59 | NUR ---
RECEIVED REPORT AND ASSUMED CARE OF PT. HE IS SITTING UP IN THE CHAIR AT BEDSIDE, DENIES CHEST PAIN OR SOB. LUNG SOUNDS IMPROVED FROM LAST PM, RLL COARSE, MILD EXPIRATORY WHEEZE LEFT LOBES. OCCLUSIVE DRESSING OVER FORMER CHEST TUBE SITE WITH LIGHT [place]ON COLORED DRAINAGE AND FREE AIR UNDERNEATH THE TEGADERM, EDGES OF TEGADERM APPEAR TO BE SEALED TO SKIN. DR. WALKER NOTIFIED, ORDER GIVEN TO PERFORM STAT CHEST X-RAY IF PT DEVELOPS SOB OR HYPOXIA. TM.
--- NOTE | 2020-09-04 05:21 | NUR ---
SHIFT SUMMARY: LAURE IS A&OX4. VSS, NO ACUTE EVENTS OVERNIGHT. O2 SATS MAINTAINING ON 2.5 L VIA NC. HE IS COUGHING UP THICK, CURRY/GREEN SPUTUM, CONTINUES USING FLUTTER VALVE AND IS. HE IS USING THE URINAL WITHOUT DIFFICULTY, TOLERATING PO INTAKE WELL. DRESSING TO RIGHT CHEST WALL WITH SMALL AMT SS DRAINAGE, TEGADERM INTACT. HE IS SITTING UP ON THE SIDE OF THE BED WITH THE CALL LIGHT IN REACH. WILL REPORT TO DAY SHIFT RN.
[2020-09-04] MEDS ORDERED: ELIQUIS5 M2 PO (12:56)
[2020-09-04] MEDS ORDERED: METO25ER PO (12:56)
[2020-09-04] MEDS ORDERED: IPRAT-ALBUT 0.5-3 ML (12:59)
--- NOTE | 2020-09-04 16:13 | NUR ---
DISCHARGE SUMMARY PT A&OX4, VSS, LEFT FLOOR VIA WC WITH MARZIPAN MOLDER TO GO HOME WITH FRIEND, WITH OXYGEN TANK FROM [facility] (PT REP VINCE WILL MEET HIM AT HOME THIS EVENING WITH HOME TANKS), ALL PERSONAL POSSESSIONS INCLUDING DC PACKET. DISCUSSED DC INSTRUCTIONS AND NEW/DC'D MEDS WITH PT, CLARIFIED PT IS ON HIS WAY TO [facility] PRIOR TO GOING HOME, DISCUSSED LEAVING DRESSING ON RIGHT CHEST IN PLACE FOR 1 WEEK, HOME HEALTH WILL FOLLOW PT.
[2020-09-29] MEDS ORDERED: AMLO10 PO (14:18)
[2020-09-29] MEDS ORDERED: Aspir 8181 MG PO (14:18)
[2020-09-29] MEDS ORDERED: Pulmicort Fle180 MCG INH (14:19)
[2020-09-29] MEDS ORDERED: HYDRA25 PO (14:21)
[2020-09-29] MEDS ORDERED: HYDCHL25 PO (14:21)
[2020-09-29] MEDS ORDERED: OMEP20ER PO (14:22)
[2020-09-29] MEDS ORDERED: POTA10T PO (14:22)
== END 2020-09-04 16:00 | disposition home or self-care (01) | DRG 190 ==
LOC: ER 08:07 → SURS 13:13
PROVIDERS: Internal Medicine Critical Care Medicine; Internal Medicine Pulmonary Disease; Nurse Practitioner Acute Care; Physician Assistant; ADMIT Internal Medicine
PROC: 0W9900Z Drainage of Right Pleural Cavity with Drainage Device, Open Approach (ICD-10-PCS; principal; 2020-08-28)
PROC: 0WP900Z Removal of Drainage Device from Right Pleural Cavity, Open Approach (ICD-10-PCS; 2020-08-31)
PROC: 0W9900Z Drainage of Right Pleural Cavity with Drainage Device, Open Approach (ICD-10-PCS; 2020-08-31)
DX: J43.9 Emphysema, unspecified (principal); J96.21 Acute and chronic respiratory failure with hypoxia; J93.12 Secondary spontaneous pneumothorax; I48.92 Unspecified atrial flutter; I48.91 Unspecified atrial fibrillation; N40.0 Benign prostatic hyperplasia without lower urinary tract symptoms; K21.9 Gastro-esophageal reflux disease without esophagitis; I10 Essential (primary) hypertension; Z88.8 Allergy status to other drugs, medicaments and biological substances; Z79.899 Other long term (current) drug therapy; Z98.41 Cataract extraction status, right eye; Z87.891 Personal history of nicotine dependence; K59.00 Constipation, unspecified
CPT/HCPCS: 32551; 32557; 36415; 71045; 71046; 80053; 80069; 83735; 84145; 84443; 84484; 85025; 85610; 85730; 87070; 87075; 87205; 93005; 93010; 93306; 94640; 94667; 94668; 94760; 94761; 94762; 96360-59; 96361-59; 99285-25; A9270; J0690; J1644; J2250; J2270; J2405; J3010; J7030

== ENCOUNTER 2020-09-29 13:44 | Emergency (ER) | payer OTHER | END 2020-09-29 16:10 | disposition home or self-care (01) | LOC: ER 13:44 | DX: M54.12 Radiculopathy, cervical region (principal); Z88.8 Allergy status to other drugs, medicaments and biological substances; Z79.899 Other long term (current) drug therapy; Z87.891 Personal history of nicotine dependence ==

== ENCOUNTER 2020-10-13 11:50 | Emergency (ER) | payer OTHER ==
[~2020-10-13] VITALS: Ht 177.8 cm; Wt 104.3 kg
[~2020-10-13 11:50] MED LIST changes: +Aspir 8181 MG PO; +ELIQUIS5 M2 PO; +HYDRA25 PO; +IPRAT-ALBUT 0.5-3 ML; +Pulmicort Fle180 MCG INH
[2020-10-13] MEDS ORDERED: CIPHYDOTSU BOTHEARS (15:28)
[2020-10-13] MEDS ORDERED: AMOCLA875 PO (15:28)
[2020-10-13] MEDS ORDERED: CIPRODEX OTIC7.5 M1 BOTHEARS (16:59)
== END 2020-10-13 16:35 | disposition home or self-care (01) ==
LOC: ER 11:50
DX: H60.503 Unspecified acute noninfective otitis externa, bilateral (principal); H66.93 Otitis media, unspecified, bilateral; J44.9 Chronic obstructive pulmonary disease, unspecified; I10 Essential (primary) hypertension; K21.9 Gastro-esophageal reflux disease without esophagitis; Z87.891 Personal history of nicotine dependence; Z88.8 Allergy status to other drugs, medicaments and biological substances; Z79.02 Long term (current) use of antithrombotics/antiplatelets; Z79.01 Long term (current) use of anticoagulants; Z79.899 Other long term (current) drug therapy
CPT/HCPCS: 70450; 72125; 99284-25; A9270

== ENCOUNTER 2020-11-22 22:48 | Emergency (ER) | payer OTHER ==
[~2020-11-22] VITALS: Ht 177.8 cm; Wt 99.8 kg
[~2020-11-22 22:48] MED LIST changes: +AMOCLA875 PO; +CIPHYDOTSU BOTHEARS; +CIPRODEX OTIC7.5 M1 BOTHEARS
[2020-11-22 23:12] LABS: BASOPHILS ABSOLUTE AUTO 0.08 K/mm3 (0.00-0.23); BASOPHILS PERCENT AUTO 1 % (0-2); EOSINOPHILS ABSOLUTE AUTO 0.24 K/mm3 (0.00-0.68); EOSINOPHILS PERCENT AUTO 3 % (0-6); Hematocrit 41.4 % (37.0-53.0); Hemoglobin 13.1 g/dL (13.5-17.5); IMMATURE GRAN ABSOLUTE AUTO 0.03 K/mm3 (0.00-0.10); IMMATURE GRAN PERCENT AUTO 0 % (0-1); LYMPHOCYTES PERCENT AUTO 28 % (21-46); MONOCYTES ABSOLUTE AUTO 0.81 K/mm3 (0.16-1.47); MONOCYTES PERCENT AUTO 9 % (4-13); Mean Corpuscular HGB 30.4 pg (26.0-34.0); Mean Corpuscular HGB Conc 31.6 g/dL (31.5-36.5); Mean Corpuscular Volume 96 fL (80-100); Mean Platelet Volume 10.4 fL (9.1-12.4); NEUTROPHILS ABSOLUTE AUTO 5.52 K/mm3 (1.96-9.15); NEUTROPHILS PERCENT AUTO 60 % (41-73); Platelet Count 184 K/mm3 (150-400); RDW Coefficient Variation 13.8 % (11.7-14.2); RDW Standard Deviation 49.2 fL (35.1-46.3); Red Blood Cell Count 4.31 M/mm3 (4.30-5.90); White Blood Cell Count 9.28 K/mm3 (4.00-11.30)
[2020-11-22 23:29] LABS: Alanine Aminotransfer (ALT/SGP 16 U/L (12-78); Albumin, Blood 3.2 g/dL (3.4-5.0); Albumin/Globulin Ratio 0.7 (0.8-1.8); Alk Phos 111 U/L (50-136); Anion Gap 2 mmol/L (6-16); Aspartate Aminotrans (AST/SGOT 21 U/L (12-37); Bilirubin, Total 0.4 mg/dL (0.1-1.0); Blood Urea Nitrogen 11 mg/dL (8-24); Bun/Creatinine Ratio 13.1 (12.0-20.0); CO2, Blood 33 mmol/L (21-32); Calcium, Blood 9.6 mg/dL (8.5-10.1); Chloride, Blood 104 mmol/L (98-108); Creatinine, Blood 0.84 mg/dL (0.60-1.20); Globulin, Blood 4.3 g/dL (2.2-4.0); Glomerular Filtration Rate >60 (60-); Glucose, Blood 97 mg/dL (70-99); Potassium, Blood 3.9 mmol/L (3.5-5.5); Sodium, Blood 139 mmol/L (136-145); Total Protein, Blood 7.5 g/dL (6.4-8.2)
== END 2020-11-23 00:46 | disposition home or self-care (01) ==
LOC: ER 22:48
PROVIDERS: Emergency Medicine
DX: K62.5 Hemorrhage of anus and rectum (principal); Z48.02 Encounter for removal of sutures; I10 Essential (primary) hypertension; J44.9 Chronic obstructive pulmonary disease, unspecified; K21.9 Gastro-esophageal reflux disease without esophagitis; Z88.8 Allergy status to other drugs, medicaments and biological substances; Z79.899 Other long term (current) drug therapy; Z79.82 Long term (current) use of aspirin; Z79.01 Long term (current) use of anticoagulants; Z87.891 Personal history of nicotine dependence
CPT/HCPCS: 36415; 71045; 80053; 85025; 99285-25

== ENCOUNTER 2020-12-03 05:01 | Emergency (ER) | payer OTHER ==
[~2020-12-03] VITALS: Ht 177.8 cm; Wt 117.9 kg
[2020-12-03] MEDS ORDERED: AMOCLA875 PO (05:18)
== END 2020-12-03 05:46 | disposition home or self-care (01) ==
LOC: ER 05:01
DX: S81.851A Open bite, right lower leg, initial encounter (principal); J44.9 Chronic obstructive pulmonary disease, unspecified; I10 Essential (primary) hypertension; K21.9 Gastro-esophageal reflux disease without esophagitis; Z86.73 Personal history of transient ischemic attack (TIA), and cerebral infarction without residual deficits; Z87.891 Personal history of nicotine dependence; Z23 Encounter for immunization; Z88.8 Allergy status to other drugs, medicaments and biological substances; Z79.899 Other long term (current) drug therapy; Z79.82 Long term (current) use of aspirin; W55.01XA Bitten by cat, initial encounter
CPT/HCPCS: 90471; 90714; 99283-25; A9270

== ENCOUNTER 2021-02-05 15:04 | Inpatient (IN) | payer OTHER ==
[~2021-02-05] VITALS: Ht 177.8 cm; Wt 102.9 kg
[2021-02-05 18:40] LABS: Calcium, Ionized (POC) 1.24 mmol/L (1.10-1.46); Chloride (POC) 97 mmol/L (98-108); Creatinine (POC) 0.9 mg/dL (0.8-1.3); Glucose (ISTAT POC) 133 mg/dL (70-99); Potassium (POC) 3.9 mmol/L (3.5-5.5); Sodium (POC) 143 mmol/L (135-148); Total CO2 (POC) 33 mmol/L (21-32)
[2021-02-05 19:05] LABS: BASOPHILS ABSOLUTE AUTO 0.08 K/mm3 (0.00-0.23); BASOPHILS PERCENT AUTO 1 % (0-2); EOSINOPHILS ABSOLUTE AUTO 0.24 K/mm3 (0.00-0.68); EOSINOPHILS PERCENT AUTO 3 % (0-6); Hematocrit 48.1 % (37.0-53.0); Hemoglobin 15.1 g/dL (13.5-17.5); IMMATURE GRAN ABSOLUTE AUTO 0.02 K/mm3 (0.00-0.10); IMMATURE GRAN PERCENT AUTO 0 % (0-1); LYMPHOCYTES ABSOLUTE AUTO 2.19 K/mm3 (0.84-5.20); LYMPHOCYTES PERCENT AUTO 26 % (21-46); MONOCYTES PERCENT AUTO 8 % (4-13); Mean Corpuscular HGB 30.1 pg (26.0-34.0); Mean Corpuscular HGB Conc 31.4 g/dL (31.5-36.5); Mean Corpuscular Volume 96 fL (80-100); Mean Platelet Volume 11.2 fL (9.1-12.4); NEUTROPHILS ABSOLUTE AUTO 5.37 K/mm3 (1.96-9.15); NEUTROPHILS PERCENT AUTO 63 % (41-73); Platelet Count 153 K/mm3 (150-400); RDW Coefficient Variation 13.6 % (11.7-14.2); RDW Standard Deviation 48.3 fL (35.1-46.3); Red Blood Cell Count 5.02 M/mm3 (4.30-5.90)
[2021-02-05 19:21] LABS: Alanine Aminotransfer (ALT/SGP 15 U/L (12-78); Albumin, Blood 3.2 g/dL (3.4-5.0); Albumin/Globulin Ratio 0.8 (0.8-1.8); Alk Phos 105 U/L (50-136); Anion Gap 5 mmol/L (6-16); Aspartate Aminotrans (AST/SGOT 20 U/L (12-37); Bilirubin, Total 0.4 mg/dL (0.1-1.0); Blood Urea Nitrogen 12 mg/dL (8-24); Bun/Creatinine Ratio 14.1 (12.0-20.0); CO2, Blood 28 mmol/L (21-32); Chloride, Blood 107 mmol/L (98-108); Creatinine, Blood 0.85 mg/dL (0.60-1.20); Globulin, Blood 4.2 g/dL (2.2-4.0); Glomerular Filtration Rate >60 (60-); Glucose, Blood 109 mg/dL (70-99); Potassium, Blood 3.8 mmol/L (3.5-5.5); Sodium, Blood 140 mmol/L (136-145); Total Protein, Blood 7.4 g/dL (6.4-8.2)
[2021-02-05 21:19] LABS: Source, Urine Catheter
[2021-02-05 21:26] LABS: Bilirubin, Urine Neg (Neg); Blood, Urine Neg (Neg); Glucose Qualitative, Urine Neg (Neg); Ketones, Urine Neg (Neg); Leukocyte Esterase, Urine Neg (Neg); Nitrite, Urine Neg (Neg); Protein, Urine 2+ (Neg); Urobilinogen, Urine NORM (Normal)
[2021-02-05 21:47] LABS: U Amphetamine Screen Not Detected; U Barbituate Screen Not Detected; U Benzodiazapine Screen Not Detected; U Buprenorphine Screen Not Detected; U Cannabinoids Screen Not Detected; U Cocaine Screen Not Detected; U Methadone Screen Not Detected; U Methamphetamine Screen Not Detected; U Opiates Screen Not Detected; U Oxycodone Screen Not Detected; U Phencyclidine Screen Not Detected; U Propoxyphene Screen Not Detected
[2021-02-05 22:10] LABS: Appearance, Urine Clear (Clear); Bacteria Not Seen /hpf; Color, Urine Yellow (P-Yellow); Red Blood Cells, Urine Not Seen /hpf (0-2); Squamous Epithelial Cells Rare /hpf (Few); White Blood Cells, Urine Rare /hpf (0-5)
[2021-02-05 22:11] LABS: Amorphous Light (0-Heavy)
--- NOTE | 2021-02-06 05:03 | NUR ---
SHIFT SUMMARY: LAURE WAS ADMITTED TO THE FLOOR FOR AMS, AFIB WITH RVR. ARRIVAL TO THE FLOOR VIA GURNEY, TRANSFERRED WITH SLIDER. AOX1 ONLY BUT IS ABLE TO STATE SOME OF HIS HISTORY SUCH HE IS A [facility] PATIENT, LIVES ALONE, AND OCCATIONALLY HAS SOME YOUNG MAN HELPING HIM OUT. HE DOES NOT REMEMBER WHAT HE WAS DOING PRIOR TO COMING HERE. DIRECTABLE AT TIMES BUT THERE ARE SHORT PERIODS WHERE HE COULD HAVE BEEN MORE AGGRESSIVE TONIGHT. VERY UNSTEADY ON HIS FEET AND IMPULSIVE WHEN HE GETS HIS MIND SET ON SOMETHING. BM THIS AM, VOIDS 200CC OR MORE ABOUT EVERY COUPLE HOURS, YELLOW. VENOUS ULCER TO THE RIGHT LATERAL CALF THAT HE STATES THE [facility] TAKES CARE OF. WOUND IS SHALLOW AND HEALING WELL. OPEN SORE IN RIGHT SIDE OF GROIN WELL FROM MOISTURE. REST OF SKIN IS PWD. BP AVERAGE HAS BEEN 160/116. HR TACHY AFIB PER TELE. WILL NEED APS AND FRUIT ROOM HAND CONSULT FOR POSSIBLE PLACEMENT IF THIS TURNS OUT TO BE HIS NORM. I ANTICIPATE THAT HE WILL NEED A POSI VEST TODAY ONCE HE FULLY WAKES UP DUE TO THE SIGNFICANT CONFUSION HE IS PRESENTING. BED ALARM IS CURRENTLY IN PLACE. WILL CONTINUE TO MONITOR.
[2021-02-06 05:29] LABS: BASOPHILS ABSOLUTE AUTO 0.08 K/mm3 (0.00-0.23); BASOPHILS PERCENT AUTO 1 % (0-2); EOSINOPHILS ABSOLUTE AUTO 0.21 K/mm3 (0.00-0.68); EOSINOPHILS PERCENT AUTO 3 % (0-6); Hematocrit 46.3 % (37.0-53.0); Hemoglobin 14.4 g/dL (13.5-17.5); IMMATURE GRAN ABSOLUTE AUTO 0.02 K/mm3 (0.00-0.10); IMMATURE GRAN PERCENT AUTO 0 % (0-1); LYMPHOCYTES ABSOLUTE AUTO 2.41 K/mm3 (0.84-5.20); LYMPHOCYTES PERCENT AUTO 30 % (21-46); MONOCYTES ABSOLUTE AUTO 0.72 K/mm3 (0.16-1.47); MONOCYTES PERCENT AUTO 9 % (4-13); Mean Corpuscular HGB 29.6 pg (26.0-34.0); Mean Corpuscular HGB Conc 31.1 g/dL (31.5-36.5); Mean Corpuscular Volume 95 fL (80-100); Mean Platelet Volume 10.5 fL (9.1-12.4); NEUTROPHILS ABSOLUTE AUTO 4.64 K/mm3 (1.96-9.15); NEUTROPHILS PERCENT AUTO 58 % (41-73); Platelet Count 145 K/mm3 (150-400); RDW Coefficient Variation 13.9 % (11.7-14.2); RDW Standard Deviation 48.5 fL (35.1-46.3); Red Blood Cell Count 4.87 M/mm3 (4.30-5.90); White Blood Cell Count 8.08 K/mm3 (4.00-11.30)
[2021-02-06 06:07] LABS: Anion Gap 6 mmol/L (6-16); Blood Urea Nitrogen 11 mg/dL (8-24); Bun/Creatinine Ratio 12.6 (12.0-20.0); CO2, Blood 33 mmol/L (21-32); Calcium, Blood 10.4 mg/dL (8.5-10.1); Chloride, Blood 107 mmol/L (98-108); Creatinine, Blood 0.87 mg/dL (0.60-1.20); Glomerular Filtration Rate >60 (60-); Glucose, Blood 107 mg/dL (70-99); Potassium, Blood 3.6 mmol/L (3.5-5.5); Sodium, Blood 146 mmol/L (136-145)
--- NOTE | 2021-02-06 17:02 | NUR ---
SHIFT SUMMARY PT IS AAO TO SELF AND SITUATION ONLY. FORGETFUL AND CONFUSED. REDIRECTABLE. PT IS IMPULSIVE AND HAD MULTIPLE EPISODES OF BED EXITING W/O ASSISTANCE FROM STAFF. PT REDIRECTED SAFELY BACK TO CHAIR / BED. NO C/O PAIN OR ANY DISCOMFORT THIS SHIFT. PT ON TELE AFIB 90's. PT ALSO HAS DISROBING EPISODES. PT IS CONTINENT OF B&B. BED AT LOWEST POSITION W/ ALARM ON. CALL LIGHT WITHIN REACH.
--- NOTE | 2021-02-06 20:20 | NUR ---
PATIENT OUT OF CHAIR X SIX. CHAIR ALARMA ACTIVATED. NOT FOLLOWING DIRECTIONS.
--- NOTE | 2021-02-06 23:21 | NUR ---
PATIENT HAVING INCREASED AGITATION. KICKING AT STAFF. PULLED TELE LEADS OFF, GOWN, AND BRIEF. NOT FOLLOWING DIRECTIONS AT THIS TIME.
--- NOTE | 2021-02-06 23:56 | NUR ---
HOSPITALIST DR NEVES ORDERD BILATERAL SOFT WRIST RESTRAINTS, OSWALDO VEST, AND FOUR SIDE RAILS. PATIENT HAVING INCREASED AGITATION KICKING AT STAFF, PULLING AT IV, PULLED TELE LEADS OFF MULTIPLE TIMES, AND PULLING GARMENTS AND BRIEFS OFF.
--- NOTE | 2021-02-07 03:10 | NUR ---
SHIFT SUMMARY PATIENT HAVING INCREASED CONFUSION AND AGITATION. ALERT TO SELF. PULLING OFF TELEMETRY LEADS X FOUR. IMPULSIVE PULLING AT PIV, KICKING, DISROBING AND PULLING ATTENDS OFF. NOT REDIRECTABLE. HOSPITALIST DR. NEVES ORDERED BILATERAL SOFT WRIST RESTRAINTS, OSWALDO VEST, AND FOUR SIDE RAILS. PIV REMAINS INTACT. CASE LOADER OPERATOR REPORTED A-FIB 98. DENIES CHEST PAIN, SOB, AND N/V. SEROQUEL GIVEN PER EMAR. BED IN LOWEST POSITION AND ALARM ACTIVATED. WILL CONTINUE TO MONITOR UNTIL DAY SHIFT NURSE ASSUMES CARE.
[2021-02-07 05:17] LABS: BASOPHILS ABSOLUTE AUTO 0.09 K/mm3 (0.00-0.23); BASOPHILS PERCENT AUTO 1 % (0-2); EOSINOPHILS ABSOLUTE AUTO 0.28 K/mm3 (0.00-0.68); EOSINOPHILS PERCENT AUTO 3 % (0-6); Hematocrit 47.4 % (37.0-53.0); IMMATURE GRAN ABSOLUTE AUTO 0.02 K/mm3 (0.00-0.10); IMMATURE GRAN PERCENT AUTO 0 % (0-1); LYMPHOCYTES ABSOLUTE AUTO 2.23 K/mm3 (0.84-5.20); LYMPHOCYTES PERCENT AUTO 26 % (21-46); MONOCYTES ABSOLUTE AUTO 0.68 K/mm3 (0.16-1.47); MONOCYTES PERCENT AUTO 8 % (4-13); Mean Corpuscular HGB 30.1 pg (26.0-34.0); Mean Corpuscular HGB Conc 31.6 g/dL (31.5-36.5); Mean Corpuscular Volume 95 fL (80-100); Mean Platelet Volume 10.8 fL (9.1-12.4); NEUTROPHILS ABSOLUTE AUTO 5.37 K/mm3 (1.96-9.15); NEUTROPHILS PERCENT AUTO 62 % (41-73); Platelet Count 153 K/mm3 (150-400); RDW Coefficient Variation 13.9 % (11.7-14.2); RDW Standard Deviation 48.9 fL (35.1-46.3); Red Blood Cell Count 4.99 M/mm3 (4.30-5.90); White Blood Cell Count 8.67 K/mm3 (4.00-11.30)
[2021-02-07 06:11] LABS: Anion Gap 7 mmol/L (6-16); Blood Urea Nitrogen 17 mg/dL (8-24); Bun/Creatinine Ratio 20.4 (12.0-20.0); CO2, Blood 31 mmol/L (21-32); Calcium, Blood 9.7 mg/dL (8.5-10.1); Chloride, Blood 106 mmol/L (98-108); Creatinine, Blood 0.84 mg/dL (0.60-1.20); Glomerular Filtration Rate >60 (60-); Glucose, Blood 100 mg/dL (70-99); Potassium, Blood 3.8 mmol/L (3.5-5.5); Sodium, Blood 144 mmol/L (136-145)
--- NOTE | 2021-02-07 09:00 | NUR ---
CALL FROM [email or web address], PT IS TACHY AND HR IS IN 150's, TOUCHING UP TO 160. PT WAS UP OUT BED AND IN THE BR WITH THIS OCCURANCE. MEDICATED WITH PO LOPRESSOR PER EMAR, WILL MONITOR.
--- NOTE | 2021-02-07 11:00 | NUR ---
PER WORSHIP LEADER PT CONTINUES WITH ELEVATED HEART RATE FROM THE 130's TO 150-160's. CONTINUE TO MONITOR
--- NOTE | 2021-02-07 11:05 | NUR ---
PT CONTINUES TO BE TACHY WITH AFIB AND ELEVATED BP. (168/107, HR 149) T/C TO DR Shelli CAMPA, ORDERS PLACED FOR ONE TIME DOSE OF 25 MG PO LOPRESOR AND 10 MG IV TRANDATE. WILL MONITOR FOR EFFECTIVENESS
--- NOTE | 2021-02-07 11:45 | NUR ---
PER [facility] HEART RATE IS NOW AT 109
--- NOTE | 2021-02-07 13:45 | NUR ---
CHECKED IN WITH [employer], HR IS 103 AT THIS TIME, AND HAS BEEN RUNNING FROM THE 90's TO LOW 100's
--- NOTE | 2021-02-07 15:30 | NUR ---
HEART RATE IS 94 AND BP IS 166/70
--- NOTE | 2021-02-07 18:15 | NUR ---
CALL FROM [facility] SET UP OPERATOR, PT'S HEART RATE IS BACK UP TO 130-140's AND OCCASIONALLY TOUCHING 150
--- NOTE | 2021-02-07 18:26 | NUR ---
PT REMAINS CONFUSED AND ORIENTED TO SELF ONLY, REMAINS IN A OSWALDO/WRIST AND RAILS X4. PERIODS OF AGITATION AND CAN BE COMBATIVE WITH ATTENDS CHANGES. PT IS IN AFIB WITH ELEVATED BP AND HR T/O THE SHIFT WITH PRN MEDICATIONS ORDERED AND GIVEN. NO ACUTE CHANGES NOTED THIS SHIFT, WILL CONTINUE TO MONITOR AND REPORT TO ONCOMING NR.
--- NOTE | 2021-02-07 20:31 | NUR ---
SPRAYER HAND REPORTS A-FIB 96.
--- NOTE | 2021-02-07 21:07 | NUR ---
BP 174/98 AND IV TRANDATE 10 MG GIVEN WITH CARDIAC MONITORING BP 128/108 ON RECHECK.
--- NOTE | 2021-02-08 03:11 | NUR ---
SHIFT SUMMARY SCRAP HANDLER REPORTED A-FIB 96 AT START OF SHIFT. BP 174/98 AND IV TRANDATE 10 MG GIVEN WITH CARDIAC MONITORING. A RECHECK OF 128/108. ALERT TO SELF AND BEDREST. HOSPITALIST DR NEVES RENEWED RESTRAINT ORDER. DENIES PAIN, SOB, AND N/V. AFEBRILE. SEROQUEL 50 MG GIVEN FOR INSOMNIA. PATIENT ABLE TO SLEEP. LESS AGITATION THIS SHIFT. CALL LIGHT IN REACH. BED IN LOWEST POSITION. WILL CONTINUE TO MONITOR UNTIL DAY SHIFT NURSE ASSUMES CARE.
[2021-02-08 05:44] LABS: BASOPHILS ABSOLUTE AUTO 0.07 K/mm3 (0.00-0.23); BASOPHILS PERCENT AUTO 1 % (0-2); EOSINOPHILS ABSOLUTE AUTO 0.12 K/mm3 (0.00-0.68); EOSINOPHILS PERCENT AUTO 1 % (0-6); Hematocrit 49.2 % (37.0-53.0); Hemoglobin 15.5 g/dL (13.5-17.5); IMMATURE GRAN ABSOLUTE AUTO 0.03 K/mm3 (0.00-0.10); IMMATURE GRAN PERCENT AUTO 0 % (0-1); LYMPHOCYTES ABSOLUTE AUTO 2.51 K/mm3 (0.84-5.20); LYMPHOCYTES PERCENT AUTO 22 % (21-46); MONOCYTES ABSOLUTE AUTO 0.95 K/mm3 (0.16-1.47); MONOCYTES PERCENT AUTO 8 % (4-13); Mean Corpuscular HGB Conc 31.5 g/dL (31.5-36.5); Mean Corpuscular Volume 95 fL (80-100); Mean Platelet Volume 11.1 fL (9.1-12.4); NEUTROPHILS ABSOLUTE AUTO 7.69 K/mm3 (1.96-9.15); NEUTROPHILS PERCENT AUTO 68 % (41-73); Platelet Count 151 K/mm3 (150-400); RDW Coefficient Variation 14.3 % (11.7-14.2); RDW Standard Deviation 50.6 fL (35.1-46.3); Red Blood Cell Count 5.16 M/mm3 (4.30-5.90); White Blood Cell Count 11.37 K/mm3 (4.00-11.30)
[2021-02-08 06:00] LABS: Anion Gap 6 mmol/L (6-16); Blood Urea Nitrogen 18 mg/dL (8-24); Bun/Creatinine Ratio 23.1 (12.0-20.0); CO2, Blood 29 mmol/L (21-32); Calcium, Blood 10.3 mg/dL (8.5-10.1); Chloride, Blood 108 mmol/L (98-108); Creatinine, Blood 0.78 mg/dL (0.60-1.20); Glomerular Filtration Rate >60 (60-); Glucose, Blood 111 mg/dL (70-99); Potassium, Blood 4.2 mmol/L (3.5-5.5); Sodium, Blood 143 mmol/L (136-145)
[2021-02-08] MEDS ORDERED: ALBU90OI INH (09:32)
[2021-02-08] MEDS ORDERED: Flonase 0.05% N16 GM (09:36)
[2021-02-08] MEDS ORDERED: ASMANEX HFA13 G4 INH (09:38)
[2021-02-08] MEDS ORDERED: STRIVERDI RESPIM4 G1 INH (09:39)
[2021-02-08] MEDS ORDERED: LIDO700A20 TOP (09:42)
--- NOTE | 2021-02-08 17:38 | NUR ---
PATIENT IS IS ALERT AND DISORIENTED. HE AWAKENS EASILY BUT FALLS ASLEEP DURING CARE. PATIENT'S DIET HAS BEEN CHANGED BY THE RN TO A MECHANICAL SOFT DIET BECUASE HE DOES NOT HAVE TEETH. IN RESTRAINTS. HE HAS BEEN AGITATED A COUPLE TIMES TODAY WITH CARE BUT HAS NOT BECOME AGRESSIVE. MEDICATIONS ADJUSTED FOR HYPERTENSION. WILL CONTINUE TO MONITOR
--- NOTE | 2021-02-09 04:31 | NUR ---
SELF PAY REPRESENTATIVE SUMMARY PATIENT HAD A FAIR SHIFT, STILL CONFUSED AT TIMES. HE DID NOT LODGE AND COMPLAINT. SAFETY MEASURES IN PLACE. WILL CONTINUE TO MONITOR.
--- NOTE | 2021-02-09 17:11 | NUR ---
PATIENT IS ALERT AND ORIENTED TO SELF AND FOLLOWING DIRECTIONS. RESTRAINTS DISCONTINUED TODAY. HE IS CONTINENT/ INCONTINENT OF URINE. HE WAS ABLE TO USE THE URINAL A COUPLE TIMES TODAY. ATTEMTPED TO GET OOB A COUPLE TIMES THIS SHIFT BUT WAS REDIRECTABLE. BED ALARM IS ON. PHYSICAL THERAPY WORKED WITH THE PATIENT TODAY. ELEVATED ORAL TEMPERATURE OF 100.6, DR. GOMEZ NOTIFIED AND PATIENT MEDICATED WITH TYLENOL. WILL CONTINUE TO MONITOR
--- NOTE | 2021-02-10 04:11 | NUR ---
ACTUARIAL CONSULTANT SUMMARY PATIENT HAD A FAIR SHIFT. HIS VITALS WERE STABLE. HE TRIED GETTING OUT THE BED ONE TIME AT THE BEGINNING OF THE SHIFT. WILL CONTINUE TO MONITOR HER. NO COMPLAINTS OVERNIGHT.
--- NOTE | 2021-02-10 16:47 | NUR ---
SHIFT SUMMARY PT GIVEN BEDBATH TODAY. WORKED WITH PHYSICAL THERAPY AND AMBULATED TO BATHROOM AND THEN BACK TO RECLINER. PT TO BE A 2P MAX ASSIST FOR FUTURE TRANSFERS. NO OTHER ACUTE CHANGES IN ASSESSMENT AT THIS TIME. VS REVIEWED. PT CURRENTLY UP IN CHAIR WITH CALL LIGHT IN REACH. CHAIR ALARM IN PLACE.
--- NOTE | 2021-02-11 06:47 | NUR ---
PT REMAINS CONFUSED, IMPULSIVE AND AT TIMES RESTLESS. WHILE AWAKE, WILL JUMP OUT OF BED. HE IS EASILY REDIRECTED AND FOLLOWS DIRECTIONS. BED ALARM ACTIVATED. BED IS IN LOW POSITION WITH THE CALL LIGHT WITHIN EASY REACH-BUT PT DOESN'T APPEAR TO UNDERSTAND OR RECALL HOW TO USE THE CALL LIGHT. WILL CONTINUE TO MONITOR.
--- NOTE | 2021-02-11 17:56 | NUR ---
PATIENT IS ALERT AND ORIENTED TO SELF AND FOLLOWING DIRECTIONS. HE WORKED WITH PT AND OT TODAY. HE HAS BEEN UP IN THE RECLINER MOST OF THE AFTERNOON. HE HAS BEEN ABLE TO FEED HIMSELF THIS SHIFT. C/O NECK PAIN, HEATING PAD IN PLACE. CHAIR ALARM IS ON. WILL CONTINUE TO MONITOR
--- NOTE | 2021-02-12 04:55 | NUR ---
ROPEMAN SUMMARY PT AAOX2, CONFUSED BUT FAIRLY EASY TO REORIENT AND FOLLOW DIRECTION. BED ALARM ON PT IS IMPULSIVE AND DOES TRY TO GET UP T/O THE NIGHT BUT MOSTLY TO URINATE. PT ABLE TO STAND AT BEDSIDE FAIRLY WELL WITH JUST A STANDBY ASSIST AND USE URINAL. PT ACCIDENTALLY REMOVED HIS IV AT START OF SHIFT. PT HAS NO IV MEDS AND IS NO LONGER ON TELEMETRY SO RECIEVED ORDER TO DC IV ACCESS PER HOSPITALIST. VSS, WILL CONTINUE TO MONITOR.
--- NOTE | 2021-02-12 18:38 | NUR ---
SHIFT SUMMARY PT AAXOX1 ONLY. PT REORIENTED TO PLACE AND TIME. HAS NO C/O PAIN, SOB, OR N/V VOICED. SAT UP IN CHAIR WITH ASSISTANCE OF PT AND HAS RESIDED THERE FOR THE LAST 6 HOURS. STATED NOT READY TO GET BACK TO BED YET. ATE ALL MEALS WITH ASSISTANCE. VSS. NAD NOTED, NO BM TODAY. WILL CONTINUE TO MONITOR IN CARE.
--- NOTE | 2021-02-13 06:25 | NUR ---
SHIFT SUMMARY: PATIENT IS A&O TO SELF, VSS, NO REPORTS OF PAIN. UP TO THE CHAIR WITH ASSIST OF 2. INC OF URINE AT TIMES. PATIENT IS CONFUSED AND IMPULSIVE, BED ALARM IS ON FOR SAFETY.
--- NOTE | 2021-02-13 18:41 | NUR ---
SHIFT SUMMARY PATIENT SITTING UP IN CHAIR AT BEDSIDE EATING DINNER WITH NO ASSISTANCE NEEDED. TOLERATED MEALS FINE. ASSISTED UP TI BATHROOM WITH HELP OF 1 ON TODAY AND HAD 2 BM OF GOOD SIZE AND CONSISTENCY. AAOX2 AT THIS TIME AND EASILY ORIENTED TO TIME. NO C/O PAIN, SOB OR N/V VOICED. NAD NOTED, VSS. STATES WOULD LIKE TO REMAIN IN CHAIR WHEN ASKED ABOUT GETTING BACK TOO BED. HE SAYS THE CHAIR IS MORE COMFORTABLE. O2 SATS STABLE ON RA. WILL CONTINUE TO MONITOR IN CARE.
--- NOTE | 2021-02-14 05:22 | NUR ---
SHIFT SUMMARY: VSS, NO REPORTS OF PAIN. PATIENT IS PLEASANTLY CONFUSED, INC. OF URINE DUE TO URGENCY. URINE IS CLEAR WITH NO ODOR. AMBULATES TO THE BATHROOM WITH ASSIST X1 AND WALKER. AT TIMES USES URINAL WITH ASSIST. BED ALARM IS ON FOR SAFETY.
--- NOTE | 2021-02-14 18:19 | NUR ---
SHIFT SUMMARY PT AXO TO SELF AND FOLLOWING DIRECTIONS, [place]. VSS. PT UP WITH 1 ASSIST FWW AND GB. MULTIPLE BM'S THIS SHIFT. NO ACUTE CHANGES THIS SHIFT. NO IV IN PLACE. BED IN LOW POSITION, CALL LIGHT WITHIN REACH. UP TO CHAIR THE WHOLE DAY. HEATING PAD APPLIED TO PAINFUL UPPER BACK/NECK.
[2021-02-15 05:32] LABS: Anion Gap 5 mmol/L (6-16); BASOPHILS ABSOLUTE AUTO 0.12 K/mm3 (0.00-0.23); BASOPHILS PERCENT AUTO 2 % (0-2); Blood Urea Nitrogen 17 mg/dL (8-24); Bun/Creatinine Ratio 23.6 (12.0-20.0); CO2, Blood 29 mmol/L (21-32); Calcium, Blood 10.1 mg/dL (8.5-10.1); Chloride, Blood 108 mmol/L (98-108); Creatinine, Blood 0.72 mg/dL (0.60-1.20); EOSINOPHILS ABSOLUTE AUTO 0.36 K/mm3 (0.00-0.68); EOSINOPHILS PERCENT AUTO 5 % (0-6); Glomerular Filtration Rate >60 (60-); Glucose, Blood 93 mg/dL (70-99); Hematocrit 43.7 % (37.0-53.0); Hemoglobin 14.1 g/dL (13.5-17.5); IMMATURE GRAN ABSOLUTE AUTO 0.04 K/mm3 (0.00-0.10); IMMATURE GRAN PERCENT AUTO 1 % (0-1); LYMPHOCYTES ABSOLUTE AUTO 2.89 K/mm3 (0.84-5.20); LYMPHOCYTES PERCENT AUTO 41 % (21-46); MONOCYTES ABSOLUTE AUTO 0.54 K/mm3 (0.16-1.47); MONOCYTES PERCENT AUTO 8 % (4-13); Mean Corpuscular HGB 30.3 pg (26.0-34.0); Mean Corpuscular HGB Conc 32.3 g/dL (31.5-36.5); Mean Corpuscular Volume 94 fL (80-100); Mean Platelet Volume 11.6 fL (9.1-12.4); NEUTROPHILS ABSOLUTE AUTO 3.17 K/mm3 (1.96-9.15); NEUTROPHILS PERCENT AUTO 44 % (41-73); Platelet Count 181 K/mm3 (150-400); Potassium, Blood 4.4 mmol/L (3.5-5.5); RDW Coefficient Variation 13.3 % (11.7-14.2); RDW Standard Deviation 45.9 fL (35.1-46.3); Red Blood Cell Count 4.65 M/mm3 (4.30-5.90); Sodium, Blood 142 mmol/L (136-145); White Blood Cell Count 7.12 K/mm3 (4.00-11.30)
--- NOTE | 2021-02-15 17:19 | NUR ---
SHIFT SUMMARY PT AWAKE AT START OF SHIFT. UP TO CHAIR FOR BREAKFAST AND HAS REMAINED IN CHAIR AT ALL DAY. PT ADMITTED FOR A-FIB WITH RVR, NOW WAITING FOR D/C ARRANGEMENTS. PER SHIFT REPORT, DAUGHTER WORKING ON PLACEMENT TO TCU AT [place], BUT PT REPORTS THAT HE DOESN'T HAVE A DAUGHTER. FRIEND TO THIS AFTERNOON TO P/U PT'S KEYS IN ORDER TO OBTAIN BILLS AND CHECK BOOK TO BRING IN TO PT. PT WAS GRATEFUL FOR THAT HELP. PER SHIFT REPORT, PT UP OOB OR CHAIR SETTING OFF ALARMS D/T URINARY URGENCY LAST NIGHT. PT HAS BEEN CO-OP TO PRESENT TODAY. NO C/O AND VERY PLEASANT. CALL LT IN REACH.
--- NOTE | 2021-02-16 04:10 | NUR ---
SUMMARY: PT A/O TO SELF AND FOLLOWING DIRECTIONS BUT IS [place], FORGETFULL AT TIMES AND HAS BED ALARM ON FOR IMPULSIVITY AND FALL RISK. 1PA W/FWW PROVIDED OOB AND PT USES URINAL AT EOB W/ASSIST. ATTENDS CHANGED PRN FOR OCCASIONAL INCONTINENCE R/T URGENCY. BOWEL MEDS HELD D/T PREVIOUS LOOSE STOOLS. NO IV ACCESS. CALL LIGHT WITHIN REACH. VSS/AFEBRILE, NO ACUTE CHANGES. PT DENIED PAIN/COMPLAINTS. CARE MANAGEMENT WORKING ON [facility]IBLE [facility] AND PT HAS FRIENDS AND NEIGHBOR CURRENTLY HELPING W/CARE AND HOME RESPONSIBILITIES. WCTM AND REPORT TO DAY RN.
--- NOTE | 2021-02-16 14:11 | NUR ---
Spoke with Primary RN Deepika and discussed case. 85 year old male admitted to the hospital for Afib with RVR. Pt's medical history and comorbidities include: Afib, COPD, HTN, CVA, Bullous Emphysema, Spontaneous Pneumothorax, BPH, GERD, and Dementia. Pt sitting in chair upon arrival. Pt is A&OX2. When assessing Pt's orientation he looks at the whiteboard for answers. After looking at the whiteboard he answers correctly for current place, but not able to verbalize correctly reason for stay nor current year. Reorientated Pt to reason and current year. Pt is able to verbalize current president. Engaged in brief discussion regarding code status wishes. Gentle education on life sustaining treatments including risk factors and implications of CPR. Pt appears to have low level of understanding. Ended visit to allow Pt to rest. Spoke with Cnc Programmer Lali, Dr Acevedo, discussed case and concerns. Plan for Dr Brock to evaluate Pt. [facility] Palliative Care will remain available.
--- NOTE | 2021-02-16 16:06 | NUR ---
SHIFT SUMMARY PT IS PLEASANT AND CO-OP. UP TO BTHRM AT START OF SHIFT AND THEN TO CHAIR FOR REMAINDER OF THE DAY. PT AMBULATES TO BTHRM USING FWW AND SBA. HAS BEEN CALLING APPROPRIATELY TODAY AND WAITING FOR ASSIST TO COME. PT ABLE TO AMBULATE IN [place] WITH P/T WELL. DISCUSSED CODE STATUS WITH PT TODAY AND PT WANTING MORE INFORMATION. PALLIATIVE CARE IN TO VISIT WITH PT. DR GOMEZ NOTIFIED OF DISCUSSION. CONSULT PLACED AND FACE SHEET SENT TO ER FOR DR MENDOZA. ER ALSO NOTIFIED THAT IT WAS SENT. PT REPORTED THAT HE DOES NOT HAVE ANY FAMILY AROUND HIM AND NO CONTACT WITH ANY FAMILY. PT HAS A NEIGHBOR CARING FOR HIS CATS AND A FRIEND TO ASSIST WITH GETTING HIS BILLS PAID WHILE IN HOSPITAL. CHAIR ALARM ON FOR SAFETY. CALL LT IN REACH. DENIES FURTHER NEEDS AT THIS TIME.
--- NOTE | 2021-02-17 03:53 | NUR ---
SHIFT SUMMARY PT IS VERY PLEASANT AND COOPERATIVE. BED IN LOWER POSIOTION, BED ALARM ON AND CALL LIGHT IN REACH.PTIS ABLE TO MAKE NEEDS KNOWN. NO NEW CONCERNS DURING THIS SHIFT. CASE MANAGEMENT IS ON THE CASE FOR LIVING ARRANGEMENT . WILL CONTINUE TO MONITOR UNTIL DAY SHIFT ARRIVES.
--- NOTE | 2021-02-17 16:55 | NUR ---
ALERT. PLEASANT. COOPERATIVE. ONE ASSIST TO BATHROOM. GUARDIANSHIP. AWAITING. TM
--- NOTE | 2021-02-18 04:03 | NUR ---
SHIFT SUMMARY PT ALERT AND ORIENTED TO SELF. PT HAD SOME PERIODS OF CONFUSION THROUGH THE NIGHT ,TRIED TO GET OUT OF BED TO GO TO THE BATHROOM MULTIPLE TIMES WITHOUT CALLING. BED IN LOWER POSITION AND ALARM ON, CALL LIGHTIN REACH. PT IS RSTING NOW, NO SIGN OF DISTRESS NOTES. WILL CONTINUE TO MONITOR.
--- NOTE | 2021-02-18 13:09 | NUR ---
ALERT . ORIENTED X 4 TODAY. SHORT TERM MEMORY LOSS. WILL FORGET WHY HE PRESSED THE CALL LIGHT. ONE PERSON ASSIST TO BATHROOM. UNLABORED RESPIRATIONS. AWAITING PLACEMENT. TM
--- NOTE | 2021-02-18 18:28 | NUR ---
STANDBY ASSIST TO BATHROOM THEN BACK TO CHAIR TO FINISH MEAL. PATIENTS BUTTOCK CREASE RED, IRRITATED. WILL USE COMBINATION SILICONE CREAM AND CALAZINE TO SEE IF IT HELPS.
--- NOTE | 2021-02-19 04:17 | NUR ---
SHIFT SUMMARY NO ACUTE EVENT THROUGHT THE NIGHT. PT IS ALERT TO HIMSELF, CONFUSED AT TIMES.PT IS RESTING COMFORTABLY AT THIS TIME. ALL FALL PRECAUTION IN PLACE .WILL CONTINUE TO MONITOR.
--- NOTE | 2021-02-19 17:56 | NUR ---
SHIFT SUMMARY PATIENT IS ALERT AND ORIENTED X2-3, PLEASANT AND COOPERATIVE WITH CARE. PATIENT WILL CALL TO MAKE NEEDS KNOW. 1 PERSON ASSIST WITH GAITBELT AND FWW. FRIEND VISITED THIS SHIFT. HOME AFFAIRS ARE BEING TAKEN CARE OF. NO ACUTE CHANGES THIS SHIFT. PATIENT IS UP IN CHAIR EATING DINNER. CHAIR ALARM IS ON. CALL LIGHT WITHIN REACH. THIS NURSE WILL CONTINUE TO CARE FOR THE PATIENT UNTIL SHIFT REPORT IS GIVEN TO ONCOMING NURSE.
--- NOTE | 2021-02-20 04:22 | NUR ---
DEPARTMENT EDITOR SUMMARY PATIENT HAD A FAIR SHIFT. HE LODGED NIL COMPLAINT OVER NIGHT. BP A LITTLE ELEVATED AT THE BEGINNING OF THE SHIFT BUT NOT ENOUGH TO GET PRN BP MED THAT WAS ORDERED. HIS VITALS AFTERWARDS REMAINED SATBLE. WILL CONTINUE TO MONITOR HIM.
--- NOTE | 2021-02-20 18:01 | NUR ---
PT HAS BEEN ALERT, SOME MILD CONFUSION, PLEASANT AND COOPERTIVE WITH CARE, USING CALL LOPEZ APPROPRIATELY T/O THE SHIFT, NO ACUTE CHANGES NOTED THIS SHIFT, WILL CONTINUE TO MONITOR AND REPORT TO ONCOMING RN
--- NOTE | 2021-02-21 03:28 | NUR ---
ANNEALER SUMMARY PATIENT HAD A FAIR SHIFT. HE IS PLEASANT. HAD A GOOD NIGHT SLEEP. HE DID NOT LODGE ANY COMPLAINT. V/S ARE STABLE. I WILL CONTINUE TO MONITOR HER.
--- NOTE | 2021-02-22 04:51 | NUR ---
MARINE STEAM FITTER SUMMARY PATIENT HAD A FAIR SHIFT. WITH STABLE V/S. DID NOT COMPLAIN OF ANY THING OVERNIGHT. WILL CONTINUE TO MONITOR HIM.
--- NOTE | 2021-02-22 15:43 | NUR ---
Upon recieving a referral for spiritual care, I visit the pt. Pt immediately tells me about his heart issues, about his complicated DC issues and about his family unit complications. He also discusses his [facility]yrs in [place] [facility] and the guilt he carries. I explore his Moravian/Faith beliefs and his devotion to prayer and the scriptures. We explore sources of forgiveness, meaning and love. I reinforce helpful attitudteds and practices, hear confession and provide pastoral drug abuse counselor, therapeutic listening and prayer. Patient responds well and shows signs of catharsis and greater inner peace. I will continue to explore family unit dysfunction if next visits come to fruition.
--- NOTE | 2021-02-22 17:58 | NUR ---
PATIENT IS ALERT AND ORIENTED WITH SOME FORGETFULLNESS. NO NEW CONCERNS TODAY. PATIENT IS SAB WITH FWW TO THE BATHROOM. HE HAS BEEN UP IN THE RECLINER THIS SHIFT. WILL CONTINUE TO MONITOR
--- NOTE | 2021-02-23 04:57 | NUR ---
MARKET ASSET PROTECTION MANAGER SUMMARY NO ACUTE CHANGES THIS SHIFT. PT AAOX3, CALLS APPROPRIATELY FOR ASSISTANCE TO BATHROOM. STANDBY ASSIST TO BATHROOM WITH FWW. NO COMPLAINTS FROM PT TONIGHT, HAS RESTED WELL. WAITING ON MEMORY CARE PLACEMENT. WILL CONTINUE TO MONITOR.
--- NOTE | 2021-02-23 18:02 | NUR ---
PATIENT A/O X3. AMBULATES WELL TO BATHROOM. PT COMPLAINTS OF PAIN DURING SHIFT TREATED PER MR. NO ACUTE CHANGES. PT IS WAITING FOR PLACEMENT TO [facility]
--- NOTE | 2021-02-24 04:39 | NUR ---
SHIFT SUMMARY pT IS CURRENTLY HOSPITALIZED FOR AFIB W/ RVR. HE IS A FULL CODE. pT IS CURRENTLY WAITING FOR A PACEMAKE AND WILL THEN BE RELEASED TO A MEMORY CARE PROGRAM. GUARDIANSHIP LETTER IN CHART.
--- NOTE | 2021-02-24 13:33 | NUR ---
Spiritual care visit conducted. Patient is sitting on a chair and alert. Patient talks about how he is "ready for Mirza to come" and take him home (tyler hopper) . I discuss code status with him as he expresses interest in a DNR code status change (I mention this to patient's RN Brit subsequent to my conversation with MR. Wray). Patient tells me that he prays daily explaining to God that he is tired of this old cold world and his ready to be in His presence for all eternity. We explore ways to continue to purue life and purpose while he is still here and add meaning and value to those around him. Patient reponds well and shows signs of increased hope and [place]. I also provide pastoral addictions counselor assistant and prayer adding to his elevated mood. I will continue to help patient balance end of life decision making and making the moments that he has left count.
--- NOTE | 2021-02-24 19:39 | NUR ---
1559 PT HAD A GOOD SHIFT. DENIES PAIN/DISCOMFORT.BP ELEVATED HOWEVER NOT BETWEEN PARAMETERS TO GIVE PRN MED. WELDER SETTER ELECTRON BEAM MACHINE NURSE MADE AWARE.SHE WILL CONTINUE TO MONITOR
--- NOTE | 2021-02-25 03:59 | NUR ---
SHIFT SUMMARY ADMITTED FOR AFIB W/RVR. FULL CODE. PLAN IS FOR PLACEMENT. DR. MENDOZA IS PSYCH CONSULT. MEDICATED ONCE FOR GAS PRESSURE THIS SHIFT. COOPERATIVE W/CARE. ON ELIQUIS. HYDRALAZINE AVAILABLE PRN SBP > 180, NO COVERAGE NEEDED THIS SHIFT. HX OF ALZHEIMER'S/DEMENTIA. REFUSED BOWEL CARE THIS SHIFT. NO NEW CONCERNS.
--- NOTE | 2021-02-25 18:01 | NUR ---
CALL PLACED TO PHARMACY ABOUT NEW BP MED.AWAITNG FOR RX TO SEND MED TO ADMINISTER
--- NOTE | 2021-02-25 18:34 | NUR ---
BP ELEVATED. GOT ORDER FROM DR QUIROZ FOR HYDRALAZINE.1833 BP MED GIVEN. PT COMPLAINS OF FEELING GASSY. GAVE SIMETHICONE. PT AMBULATES WELL TO BATHROOM/ROOM WITH STAFF ASSISTANCE USING HIS WALKER. PT IS SITTING IN HIS CHAIR READING MAG/OTHER PAPERS. NO ACUTE CHANGES. PT AWAITING FOR PLACEMENT AT [facility]. CALL LIGHT WITHIN REACH, CHAIR/BED ALARM ON. SURFACE GRINDER WILL CONTINUE TO MONITOR
--- NOTE | 2021-02-26 04:18 | NUR ---
SHIFT SUMMARY ADMITTED FOR AFIB W/RVR. FULL CODE. PLAN IS FOR PLACEMENT TO MEMORY CARE. PO HYDRALAZINE AVAILABLE FOR HTN. 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 DR. MENDOZA IS PSYCHIATRIC CONSULT. HX: AFIB, ALZHEIMER'S/DEMENTIA, HTN, FREQUENT FALLS. NO NEW CONCERNS THIS SHIFT.
--- NOTE | 2021-02-26 18:47 | NUR ---
pt reported to lumber tailer he was having chest pain. went to the room with charge nurse; he denies having chest pain. couple minutes after he describes pain as chronic but that is radiating to his chest, arms, back and was having headache. call placed to DR Stover, got order to do EKG and have charge nurse call the manager night provider to read it. ekg performed. patient is unsure of the nature of the pain. call placed to rapid response. tylenol given. rapid response team in the room , vitals taken, ekg read by rapid response team.see rapid response notes
--- NOTE | 2021-02-27 04:28 | NUR ---
GUN MECHANIC SUMMARY ADMITTED FOR AFIB WITH RVR. PT IS FULL CODE. PT IS WAITING FOR PLACEMENT WITH A MEMORY CARE FACILITY DUE TO HISTORY OF DEMENTIA. PT HAS BEEN PLEASANT THROUGHOUT THE SHIFT. MEDICATED WITH 20 MG PRN ORAL APRESOLINE AT START OF SHIFT FOR BP OF 170/99. PT MEDICATED WITH PRN SIMETHICONE FOR GAS PAINS. PT WOKE UP WITH HEADACHE SECONDARY TO CHRONIC NECK PAIN AND ORDER OBTAINED FOR IBUPROFEN AND OMEPRAZOLE WITH IT PER PHARMACY RECOMMENDATION DUE TO PT BEING ON ELIQUIS. PT HAD MULTIPLE BMS THROUGHOUT THE SHIFT. PT ALERT AND ORIENTED, CALLING APPROPRIATELY AND FOLLOWING DIRECTIONS. NO OTHER CONCERNS THIS SHIFT.
--- NOTE | 2021-02-27 17:18 | NUR ---
PATIENT C/O FEELING GASSY AROUND 1300.TREATED WITH SIMETHICONE.VITALS STABLE. A/O X 2-3. NO ACUTE CHANGES. PATIENT AMBULATES WELL TO THE BATHROOM WITH STAFF ASSIST. NO SIGNS OF ACUTE DISTRESS. NO C/O OF CHEST PAIN. PATIENT AWAITING FOR PLACEMENT AT A MEMORY CARE CENTER. WILL CONTIUE TO MONITOR
--- NOTE | 2021-02-28 17:20 | NUR ---
PATIENT IS ALERT AND ORIENTED TO SELF, PLACE AND FOLLOWING DIRECTIONS. INTERMITTENT FORGETFULLNESS. CALLS APPROPRIATELY TO USE THE BATHROOM. SLEEPS BETWEEN MEALS. WILL CONTINUE TO MONITOR
--- NOTE | 2021-03-01 17:29 | NUR ---
PATIENT IS ALERT AND ORIENTED AND COOPERATIVE WITH CARE. C/O RIGHT KNEE PAIN, DR. QUIROZ NOTIFIED. THE PATIENT WAS SHOWERED AND SHAVED TODAY. AMBULATORY IN HIS ROOM. WILL CONTINUE TO MONITOR
--- NOTE | 2021-03-02 04:50 | NUR ---
LAURE'S BLOOD SUGAR WAS 213 BEFORE HE WAS ADMINISTERED HIS NIGHTLY LANTUS. HE WAS CHANGED AND MADE COMFORTABLE AROUND 4 AM. VITALS ARE STABLE. WILL CONTINUE TO MONITOR
--- NOTE | 2021-03-02 13:20 | NUR ---
Spiritual care visit conducted. Patient immediately tells me about the goals that acheived that are written on patient's white board in his rm (to have his cats taken care of, his trailer payment made and his bills paid). Patient explains how each of these goals were accomplished by his friends and the load off of his shoulders it is for him. I help patient articulate the value of these accomplishments. Patient talks about how he is hoping that his care managers find a place for him to relocate very soon but he states that he is starting to get discouraged by the lack of action. Pt also discusses his thoughts about what kind of God he believes in and how that God might intervene in his medical and placement issues. Pt shares about his thoughts on heaven and what he is hoping for after . I listen empathically and provide theological answers to his questions, address the the issues of waiting and provide prayer. Patient responds well and shows signs reduced anxiety. I will continue to help pt endure through the longevity of his situation and inspire hope.
--- NOTE | 2021-03-02 17:56 | NUR ---
SHIFT SUMMARY PATIENT IS AAOX2 ONLY. REORIENTED TO PLACE AND TIME. HE CONTINUES TO SAY THAT HE IS VERY CONFUSED AND AWARE. HE HAS BEEN SITTING UP IN THE BEDSIDE CHAIR FOR MAJORITY OF THE DAY WITHOUT ANY ISSUES. NO C/O PAIN, SOB, N/V, OR DISCOMFORT VOICED. VSS. NAD NOTED. ON RA. AWAITING PLACEMENT TO MEMORY CARE FACILITY. WILL CONTINUE TO MONITOR IN CARE. CALL LIGHT WITHIN REACH.
--- NOTE | 2021-03-03 05:22 | NUR ---
911 DISPATCHER SUMMARY ADMITTED FOR AFIB. PT IS A FULL CODE. CONTINUING TO SEARCH FOR PLACEMENT IN MEMORY CARE. PT APPEARS INCREASINGLY WEAK THIS SHIFT AND ADVISED TO STAY IN BED AND USE THE URINAL. HE HAD BEEN AMBULATING TO THE RESTROOM AROUND EVERY HOUR USING THE WALKER BUT ADMITTED TO FEELING EXTRA FATIGUED. PT DENIES CHEST PAIN OR SHORTNESS OF BREATH BUT CONTINUING TO HAVE CHRONIC BACK PAIN BUT DENIES PAIN MEDICATION BECAUSE "TYLENOL AND IBUPROFEN DON'T WORK". NO OTHER CONCERNS THIS SHIFT.
--- NOTE | 2021-03-03 17:33 | NUR ---
SHIFT SUMMARY PATIENT IS AAOX3 THIS PM BUT WAS OFF AND ON CONFUSED THROUGHOUT THE DAY AND ASKED WHERE HE WAS. EASILY REORIENTED TO PLACE AND TIME. SAT UP TO BEDSIDE IN CHAIR FOR MOST OF THE DAY ABOUT 9 HOURS. WOULD LIKE TO STAY IN CHAIR FOR DINNER UNTIL CLOSE TO BED TIME. VSS. NAD NOTED. ON RA BUT STATES GETS SOB WITH ACTIVITY AND IS HIS BASELINE. AMBULATES WITH WALKER BACK AND FOURTH TO RESTROOM WITHOUT ASSISTANCE NEEDED. TOLERATING MEALS. NO C/O NEW PAIN, N/V OR DISCOMFORT VOICED. STILL AWAITING BED AT MEMORY CARE UNIT.
--- NOTE | 2021-03-04 06:32 | NUR ---
PATIENT PLEASANTLY CONFUSED. CONTINUES TO BE IMPULSIVE GETTING OOB. NO COMPLAINTS OF PAIN OR DISCOMFORT. DOES HIS BEST TO FOLLOW COMMANDS
--- NOTE | 2021-03-04 17:08 | NUR ---
SHIFT SUMMARY PATIENT IS SITTING UP IN THE BEDSIDE CHAIR VISITING WITH HIS NEIGHBOR/FRIEND. HAS SPENT LAST 6 HOURS IN THE CHAIR. STATES IS MORE COMFORTABLE THAN THE BED. C/O HEADACHE BUT REFUSES TYLENOL SAYS DOES NOT HELP. HE WAS EXTREMELY CONFUSED IN THE AM AND BECAME A BIT IRRATATED WHEN REALIZING HE WAS UNFAMILIAR WITH HIS WHERE ABOUTS. CALLED AND SPOKE WITH FAMILY AND REORIENTED TO PLACE AND TIME. REMAINS ON ROOM AIR WITH GREAT SATS OF 93-95% AND NO C/O SOB, N/V OR DISCOMFORT. DID HAVE 2 BM TODAY AND OF LOOSE CONSISTENCY. NO IV ACCESS. STILL AWAITING MEMORY CARE BED FOR TRANSFER
--- NOTE | 2021-03-04 23:38 | NUR ---
ERROR IN CHARTING ADLS AT 2337. WRONG PATIENT
--- NOTE | 2021-03-05 05:15 | NUR ---
PATIENT SLEPT MUCH MORE THAN THE PREVIOUS NIGHT. HE ONLY SET OFF THE ALARM TWICE, THEN WAITED AT THE SIDE OF THE BED FOR STAFF TO TAKE HIM TO THE BATHROOM. NO COMPLAINTS OR SIGNS OF DISCOMFORT OR PAIN OVERNIGHT
--- NOTE | 2021-03-05 18:19 | NUR ---
SHIFT SUMMARY PATIENT WAS SETUP FOR DINNER AND EATING MEAL AT THIS TIME. AAOX3 ON TODAY AND AT TIMES BECAME PLEASANTLY CONFUSED WAS EASILY ABLE TO BE REORIENTED TO PLACE AND TIME. HAS NO C/O PAIN, SOB, N/V OR DISCOMFORT VOICED AT THIS TIME. VSS. NAD NOTED. CALL LIGHT WITHIN REACH. WILL CONTINUE TO MONITOR IN CARE.
--- NOTE | 2021-03-06 04:32 | NUR ---
DIAMOND DIE DRILLER SUMMARY ADMITTED FOR ATRIAL FIBRILLATION WITH RVR - RESOLVED. PT IS FULL CODE. AWAITING FINALIZATION OF GUARDIANSHIP SO APPLICATION FOR MEDICAID CAN BE COMPLETED AND AN APPLICATION FOR MEMORY CARE CAN BE SUBMITTED. PT IS ALERT AND ORIENTED X2. APPEARS MORE CONFUSED THIS SHIFT. PT MORE IMPULSIVE AND WANDERING - EASILY REDIRECTABLE. NO OTHER CONCERNS THIS SHIFT.
--- NOTE | 2021-03-06 15:02 | NUR ---
SHIFT SUMMARY NO ACUTE CHANGES TO PRESENT THIS SHIFT. PT UP TO CHAIR FOR MEALS AND HAS REMAINED IN CHAIR AT BS SINCE WAKING THIS AM. PT IS SBA TO BTHRM USING FWW. PT USING URINAL WHEN IN CHAIR TO VOID; SM AMT OF OCCASSIONAL INCONTINENCE D/T URGENCY. PT CONTINUES TO WAIT GUARDIANSHIP FOR MEMORY CARE PLACEMENT. BED AND CHAIR ALARM USED FOR FORGETFULNESS. CALL LT IN REACH.
--- NOTE | 2021-03-07 04:54 | NUR ---
SHIFT SUMMARY LAURE IS A&O X 3, IMPULSIVE AT TIMES. HIGH FALL RISK USING BED ALARM AND CHAIR ALARM. NO IV ACCESS. HE IS AWARE OF WAITING PLACEMENT, PENDING GUARDIANSHIP. ROOM AIR. 1 PERSON SBA WITH WALKER. NO ACUTE CHANGES OVERNIGHT.
--- NOTE | 2021-03-07 15:45 | NUR ---
SHIFT SUMMARY NO ACUTE CHANGES TO PRESENT THIS SHIFT. PT AWAKE AND UP TO CHAIR AT START OF SHIFT. HAS BEEN PLEASANT AND CO-OP, WAITING FOR ASSIST TO GO TO BTHRM. USING CALL LT BEFORE GOING AND PULLING BTHRM CORD WHEN FINISHED. FRIEND UNABLE TO COME IN TODAY D/T SNOW. PT REPORTED FRIEND TO BRING IN FAMILY PHYSICIAN PAPERS TO FILL OUT TOMORROW FOR GUARDIANSHIP. SITTING UP TO CHAIR WATCHING TV AND TAKING A NAP OFF AND ON THRU OUT THE DAY. NO C/O. CALL LT IN REACH.
--- NOTE | 2021-03-08 04:33 | NUR ---
SHIFT SUMMARY LAURE IS AWAITING PENDING GUARDIANSHIP AND PLACEMENT IN MEMORY CARE. NO IV ACCESS. ROOM AIR. FORGETUL TO OWN LIMITATIONS, BED ALARM ON. HE VOIDS FREQUENTLY THROUGH OUT THE NIGHT, NEEDS 1 PERSON SBA FOR SAFETY. AMBULATES WITH FWW TO TOILET. LUNGS CLEAR, DIMINISHED. PMH: ALZHEIMERS, COPD, HTN, DEMENTIA WITH SUNDOWNERS, AFIB WITH RVR CONTROLLED BY METOPROLOL. BED IN LOWEST POSITION, CALL LIGHT WITHIN REACH, WILL CONTINUE TO MONITOR.
--- NOTE | 2021-03-08 17:06 | NUR ---
AOX3 AND COOPERATIVE OF CARE. NO DISTRESS NOTED AT THIS TIME. MILD CONFUSION AND IMPULSIVE. PT DOES NOT USE CALL LIGHT AND HAS BED AND CHAIR ALARM IN PLACE. CALL LIGHT WITHIN REACH WILL CONTINUE TO MONITOR.
--- NOTE | 2021-03-08 19:32 | NUR ---
SITTING IN CHAIR WITH ALARM ON. ASSISTED WITH PUTTING O2 CANNULA BACK INTO NOSE. CALL LIGHT IN REACH
--- NOTE | 2021-03-09 04:09 | NUR ---
NO ACUTE CHANGES TO PT CONDITION. PT FORGETS HIS LIMITATIONS AND WILL TRY TO GET UP AND GO TO THE BATHROOM WITHOUT ASSISTANCE. HE DOES REMEMBER TO USE HIS WALKER. PT UP TO RESTROOM TO URINATE SEVERAL TIMES THROUGHOUT THE SHIFT, BUT HE GOES BACK TO BED. CALL LIGHT IS WITHIN REACH. PT WILL CONTINUE TO BE MONITORED.
--- NOTE | 2021-03-09 18:26 | NUR ---
SHIFT SUMMARY NO ACUTE CHANGES THIS SHIFT. PT HAS BEEN UP IN THE CHAIR FOR THE MAJORITY OF THE SHIFT AND HAS CALLED APPROPRIATELY. NEEDS TO BE REMINDED TO WEAR NC BUT HAS KEPT IT ON AFTER THIS RN REMINDED HIM TODAY. AWAITING GUARDIANSHIP AND PLACEMENT. VSS. WILL REPORT TO NOC RN.
--- NOTE | 2021-03-10 05:51 | NUR ---
SHIFT SUMMARY: AOX2, PLEASANT AND COOPERTIVE. FORGETFUL AT TIMES. ABLE TO GET UP WITH ONE ASSIST AND FWW. VS WNL. NO PAIN. GOOD APPETITE. DENIED ANY CONCERNS OR COMPLAINTS THIS SHIFT. STILL AWAITING PLACEMENT, MEDICAID COVERAGE AND GUARDIANSHIP. CALL LIGHT IN REACH, BED ALARM IS ON.
--- NOTE | 2021-03-10 17:52 | NUR ---
DAY SHIFT SUMMARY PLEASANT PT A/O X2, CONFUSED, ABLE TO AMBULATE WITH WALKER AND STANDBY ASSIST. BED ALARM IN PLACE PT CAN BE IMPULSIVE. AWAITING PLACEMENT. CALL LIGHT WITHIN REACH. NO CHANGES WITH PT THIS SHIFT.
--- NOTE | 2021-03-11 03:58 | NUR ---
SHIFT SUMMARY 85 YR m admitted on 02/07/21 for afib w/ rvr. full code. PT IS STABLE WITH NO NEW CHANGES. HE IS WAITING FOR PLACEMENT. HE IS OOB TO CHAIR AND AMBULATES INDEPENDANTLY TO BATHROOM. USES CALL LIGHT AND BATHROOM LIGHT APPROPRIATELY. HE IS ALERT AND ORIENTED X 4 AND IS PLEASANT AND COOPERATIVE.
--- NOTE | 2021-03-11 18:18 | NUR ---
SHIFT SUMMARY: NO ACUTE EVENTS. C/O NECK PAIN; GAVE ADVIL AND APPLIED HEAT FOR A SHORT TIME, THEN APPLIED LIDOCAINE PATCH, WHICH HAS ONLY GIVEN MINIMAL RELIEF. WEARING O2 @ 2 L/MIN NC, LUNGS WITH EXP WHEEZES THROUGHOUT, DENIES SOB. TOLERATING PO INTAKE, HAD BM TODAY. FRIEND CAME TODAY TO FINISH POA PROCESS WITH DANIAL. AWAITING PLACEMENT.
--- NOTE | 2021-03-12 04:57 | NUR ---
PT SLEPT FOR SOME OF THE NIGHT WITH INCREASED CONFUSION NOTED. REMIANS ON 2L O2 VIA NC. LIDOCAINE PATCH PER EMAR FOR NECK/BACK PAIN. NO ACUTE CHANGES NOTED. STAFF WILL CONTINUE TO MONITOR.
--- NOTE | 2021-03-12 17:58 | NUR ---
SHIFT SUMMARY: NO ACUTE EVENTS. C/O NECK PAIN; PLACED LIDOCAINE PATCH, WHICH FELL OFF. REPLACED WITH SECOND LIDOCAINE PATCH SECURED WITH TEGADERM, WHICH SEEMED TO WORK AND PROVIDED SOME RELIEF. WEARING O2 INTERMITTENTLY ("I KNOW WHEN I NEED IT.") TOLERATING PO INTAKE, GOOD APPETITE. AWAITING PLACEMENT.
--- NOTE | 2021-03-13 04:55 | NUR ---
SHIFT SUMMARY PT IS AN 85 Y/O MALE, ADMITTED FOR AFIB WITH RVR AND CURRENTLY AWAITING PLACEMENT. HE IS A&O X 2-3, VERY [place]. 1PA C FWW TO THE BATHROOM. PT USES 2L O2 VIA NC PRN, O2 SATTING > 90%. VITAL SIGNS STABLE. NO C/O ACUTE PAIN, NAUSEA OR SOB. NO ACUTE CHANGES IN PT CONDITION NOTED DURING THE NIGHT. WILL CONTINUE TO MONITOR AND TREAT PER EMAR UNTIL HAND OFF TO DAY SHIFT RN.
--- NOTE | 2021-03-13 17:00 | NUR ---
PT AOX2 WITH CONFUSION. PT HAS NO ACUTE CHANGES AT THIS TIME. PT DOING WELL A STANBY TO RESTROOM WITH WALKER. PT IS IMPULSIVE AND WILL FORGET TO CALL AT TIMES. CALL LIGTH WITHIN REACH AND BED AND CHAIR ALARM AT ALL TIMES. WILL CONTINUE TO MONITOR.
--- NOTE | 2021-03-14 03:49 | NUR ---
SHIFT SUMMARY NO ACUTE CHANGES TO PT CONDITION DURING THIS SHIFT. PT A&O X 2. PLEASANT AND COOPERATIVE. PT FORGETFUL OF LIMITATIONS. HE IS IMPULSIVE AND FORGETS TO CALL FOR ASSISTANCE. BED ALARM IS ON. PT IS [place]. CONTINUES TO WAIT FOR PLACEMENT TO BE DISCHARGED. LIDOCAINE PATCHES REMOVED THIS SHIFT AT 194. PT ON 2L O2 VIA NC. CALL LIGHT WITHIN REACH AND WILL CONTINUE TO MONITOR.
--- NOTE | 2021-03-14 17:38 | NUR ---
SHIFT SUMMARY NO ACUTE CHANGES THIS SHIFT. PT HAS BEEN UP WITH WALKER TRANSFERRING TO THE BATHROOM. LIDOCAINE PATH HAS MANAGED HIS NECK PAIN FOR MOST OF THE SHIFT, MEDICATED FOR HEADACHE PER EMAR THIS PM. WILL CONTINUE TO MONITOR.
--- NOTE | 2021-03-15 05:44 | NUR ---
SHIFT SUMMARY NO ACUTE CHANGES PT HAS RESTED MOST OF THE NIGHT. PT COMPLAINS OF CHRONIC NECK AND BACK PAIN BUT DECLINES ANYTHING FOR PAIN. HE HAS SLEPT IN HIS RECLINER. RESP E/U ON 2L O2. ASSESSMENT UNCHANGED, STILL WAITING FOR PLACEMENT. BED IN LOWEST POSITION, CALL LIGHT WITHIN REACH.
--- NOTE | 2021-03-15 18:33 | NUR ---
SHIFT SUMMARY NO ACUTE CHANGES. PT CONTINUES TO AWAIT PLACEMENT IN A [facility]ILITY. PT UP IN THE CHAIR FOR THE MAJORITY OF THE DAY. SBA TO THE BATHROOM WITH A FWW/WAYNE. VSS. WILL REPORT TO GAVIN RODGERS.
--- NOTE | 2021-03-16 04:29 | NUR ---
SHIFT SUMMARY LAURE: LAURE VS WERE WNL. HE REMAINED ON HIS CHAIR UNTIL AROUND 11. SLEPT ON HIS BED MOST OF THE NIGHT. STILL WAITING FOR PLACEMENT.
--- NOTE | 2021-03-16 18:37 | NUR ---
SHIFT SUMMARY- PT STILL AWAINNG PLACEMENT, NO ACUTE CHANGES T/O THE SHIFT. PT SITTING UP IN A CHAIR AT THIS TIME, NO S&S OF DISTRESS. WILL CTM AND PASS ON IN BEDSIDE REPORT.
--- NOTE | 2021-03-16 22:25 | NUR ---
ASSISTED TO BED EARLIER AFTER TRIP TO BATHROOM. ALERT AND OREINTED. O2 PER NC AND CALL LIGHT IN REACH. AFFECT CHEERFUL.
--- NOTE | 2021-03-17 03:19 | NUR ---
MOBILE PATROL OFFICER SUMMARY ASSISTED TO BED EARLIER AT HS, ENCOURAGED TO USE CALL LIGHT IF NEEDING TO GO TO BATHROOM. HAS BEEN RESTING QUIETLY WITH FEW INTERRUPTIONS SINCE HS. UP TO BR WITH ASSIST A FEW TIMES. NO C/O VOICED/ CALL LIGHTIN REACH.
--- NOTE | 2021-03-17 17:08 | NUR ---
SHIFT SUMMARY NO ACUTE CHANGES NOTED TO PT THIS SHIFT. PT IS AAOX3, FORGETFUL AT TIMES, IMPULSIVE, REDIRECTABLE BY STAFF. NO C/O PAIN OR ANY DISCOMFORT THIS SHIFT. NO C/O CP, SOB, OR N/V/D. PT REQUIRES 1P SBA WITH FWW TO THE BATHROOM, CONTINENT/INCONTINENT, ATTENDS IN PLACE. BED AT LOWEST POSITION, CALL LIGHT WITHIN REACH. BED ALARM ON FOR SAFETY.
--- NOTE | 2021-03-18 04:35 | NUR ---
SHIFT SUMMARY PT PLEASANT AND COOPERATIVE THIS EVENING. FORGETFUL AND IMPULSIVE AT TIMES. WILL USE CALL LIGHT AT TIMES BUT WILL NOT WAIT FOR STAFF TO GET THERE BEFORE GETTING UP. PT SLEPT MUCH OF THE NIGHT. SOME HTN THIS EVENING. MEDICATED PER EMAR. OTHERWISE VITAL SIGNS STABLE. PT HAD A MOSTLY UNEVENTFUL NIGHT.
--- NOTE | 2021-03-18 06:06 | NUR ---
PT FOUND ON RA THIS AM. O2 SATS 97% ON RA. LEFT OXYGEN OFF AT THIS TIME.
--- NOTE | 2021-03-18 18:12 | NUR ---
PATIENT IS ALERT AND ORIENTED AND COOPERATIVE WITH CARE. ON 2L O2 VIA NC. HE DID DESAT THIS AFTERNOON ON RA. SBA TO BATHROOM WITH FWW. NO NEW CONCERNS TODAY. WILL CONTINUE TO MONITOR
--- NOTE | 2021-03-19 04:48 | NUR ---
SHIFT SUMMARY PT AWAKE UNTIL LATE THIS EVENING. SLEPT WELL ONCE ASLEEP. REMAINS FORGETFUL BUT WAS VERY GOOD TONIGHT ABOUT CALLING WHEN NEEDING ASSISTANCE. PT CONTINUES TO AWAIT [place]IP AND PLACEMENT. VITAL SIGNS STABLE. NO ACUTE CHANGES THIS SHIFT.
--- NOTE | 2021-03-19 16:49 | NUR ---
PATIENT IS ALERT AND ORIENTED AND COOPERATIVE WITH CARE. CALLS APPROPRIATELY. AMBULATORY TO THE BATHROOM. C/O NECK PAIN, MEDICATED PER EMAR. UP TO RECLINER. WILL CONTINUE TO MONITOR
--- NOTE | 2021-03-20 05:18 | NUR ---
SHIFT SUMMARY PT AOX3 AND [place] BUT COOPERATIVE WITH CARE. PT USES CALL LIGHT PRIOR TO AMBULATING IN ROOM TO THE RESTROOM. PT C/O NECK PAIN AND MEDICATED PER EMAR THIS SHIFT. PT RESTED WELL WITH NO S/S OF DISTRESS AND SNORING HEARD UPON ROUNDS. PT CURRENTLY UP EATING A SNACK AND DENIES ANY OTHER NEEDS AT THE MOMENT. THIS NURSE WILL CONTINUE TO MONITOR UNTIL REPORT IS GIVEN.
--- NOTE | 2021-03-20 13:54 | NUR ---
Will follow up with point of care technician on monday for guardian so can address code status.
--- NOTE | 2021-03-20 18:16 | NUR ---
SHIFT SUMMARY- PT ALERT ANND ORIENTED X3, FORGETFUL AT TIMES. PT USES THE CALL LIGHT APPROPRIATLY BUT IS IMPULSIVE SO BED AND CHAIR ALARMS SET FOR PT SAFETY. PT IN THE CHAIR NO S&S OF DISTRESS NOTED AT THIS TIME. NO ACUTE CHANGE T/O THE DAY. NO IV ACCESS NEEDED.
--- NOTE | 2021-03-21 05:52 | NUR ---
SHIFT SUMMARY PT AOX2-3 AT TIMES WITH SOME CONFUSION, MOSTLY [place]. PT STILL USES CALL LIGHT APPROPRIATE BEFORE AMBULATING AND COOPERATIVE WITH STAFF. PT WAS UP MOST OF THIS SHIFT IN THE RESTROOM WITH LOOSE STOOLS, NEW ORDER OBTAINED PER EMAR. PT ASLEEP WITH LOUD SNORES UPON ROUNDS AND MEDICATED PER EMAR THIS SHIFT. THIS NURSE WILL CONTINUE TO MONITOR UNTIL REPORT IS GIVEN.
--- NOTE | 2021-03-21 18:29 | NUR ---
SHIFT SUMMARY- PT ALLERT AND ORIENTED X 3. STILL AWAITING PLACEMENT. PT HAS HAD BM'S TODAY BUT NO LOOSE STOOL ALL WERE SOFT AND FORMED PER REPORT FROM SERVICE DOG TRAINER. PT IS 1P SBA FOR SAFETY. HE USES THE CALL LIGHT THEN GETS UP, SO A LITTLE IMPULSIVE WITH A WARNING PRIOR TO HIM GETTING UP. PT HAS HAD NO C/O PAIN OTHER THAN HIS NECK, THAT WAS MEDICATED WITH THE SCHEDULED LIDODERM PATCH THIS MORNING TO PT SATISFACTION. PT HAD A SHOWER TODAY. LINNENS CHANGED. PT SITTING UP IN THE CHAIR AT THIS TIME, CHAIR ALARM ON FOR SAFETY. CALL LIGHT IN REACH, NO S&S OF DISTRESS NOTED AT THIS TIME. WILL CTM.
--- NOTE | 2021-03-22 06:06 | NUR ---
SHIFT SUMMARY PT AOX2-3 AND HAD INCREASED CONFUSION THIS SHIFT. HOWEVER, THE PT STILL UTILIZED THE CALL LIGHT WHEN GETTING UP FROM THE CHAIR OR BED, BOTH ALARMS SET. PT MEDICATED PER EMAR AND RESTED WELL WITHOUT DISTRESS, PT HAD ONE LOOSE STOOL BM THIS SHIFT. PT ASLEEP WITH RISE AND FALL OF CHEST, NO S/S OF DISTRESS. THIS NURSE WILL CONTINUE TO MONITOR UNTIL REPORT IS GIVEN.
--- NOTE | 2021-03-22 15:23 | NUR ---
Spiritual care visit conducted. Because therapeutic alliance is already established, patient immediately shares personal information about his fears, his failures, his joys and his hopes. Patient is easily encouraged and shows signs of being encouraged by gentle chemical dependency counselor, therapeutic listening and prayer. Patient continues to talk about his peace about and dying and his conversational prayer life with God. I will continue to remain available to patient and his friends.
--- NOTE | 2021-03-22 16:30 | NUR ---
SHIFT SUMMARY PT UP IN CHAIR MOST THE SHIFT. AWAITING PLACEMENT. SBA TO THE BATHROOM. CALLS APPROPRIATELY. NO ACUTE CHANGES IN ASSESSMENT AT THIS TIME. VS REVIEWED. PT UP IN CHAIR WATCHING TV. DENIES NEEDS AT THIS TIME.
--- NOTE | 2021-03-23 06:47 | NUR ---
SHIFT SUMMARY PT AOX2-3 AT TIMES WITH SOME CONFUSION THIS SHIFT. PT HAD VOMIT IN [place] AT THE START OF THIS SHIFT WITH A LOW GRADE FEVER. PT MEDICATED PER EMAR THIS SHIFT. PT STILL USES ALARMS FOR BOTH BED AND CHAIR YET USES THE CALL LIGHT APPROPRIATELY. PT RESTED WITH RISE AND FALL OF CHEST NO S/S OF DISTRESS. PT. STILL ASLEEP SNORING AND THIS NURSE WILL CONTINUE TO MONITOR UNTIL REPORT IS GIVEN.
--- NOTE | 2021-03-23 17:08 | NUR ---
SHIFT SUMMARY PT UP IN RECLINER MOST OF THE DAY. PT DID HAVE ONE EPISODE OF EMESIS AFTER LUNCH. PT STATES "I HAD PHLEM AND COUGHED TILL I THREW UP". PT DENIES NAUSEA AT THIS TIME. NO ACUTE CHANGES IN ASSESSMENT AT THIS TIME. VS REVIEWED.
--- NOTE | 2021-03-24 04:28 | NUR ---
SHIFT SUMMARY PT IS AA0X3, FORGETFUL AT TIMES,BUT EASILY REORIENTED. PT IS ABLE TO MAKE HIS NEEDS KNOWN.VSS REVIEWED. ALL MEDS WERE GIVEN PER EMAR. PT IS RESTING NOW,NO SIGN OF DISTRESS NOTED. BED ALARM ON AND CALL LIGHT IN REACH. WILL CONTINUE TO MONITOR UNTIL GIVING REPORT TO THE ONCOMING NURSE.
--- NOTE | 2021-03-24 15:29 | NUR ---
SHIFT SUMMARY NO ACUTE CHANGES TO PRESENT THIS SHIFT. PT UP TO CHAIR FOR BREAKFAST AND REMAINS IN CHAIR AT BS ALL DAY. UP TO BTHRM USING FWW AND SBA, NEEDED. PT LATER UP TO SHOWER, USING SHOWER CHAIR. BED LINENS CHANGED. PT IS A&O WITH OCCASSIONAL FORGETFULNESS. NO C/O. DENIES NEEDS AT THIS TIME. CALL LT IN REACH AND ABLE TO MAKE NEEDS KNOWN.
--- NOTE | 2021-03-25 04:35 | NUR ---
SHIFT SUMMARY NO NEW CONCERNS FOR THE SHIFT .PT IS ABLE TO MAKE HIS NEEDS KNOWN. PT IS AA0X3, AT TIMES FORGETFUL. ALL MEDS WERE GIVEN PER EMAR. BED ALARM ON AND CALL LIGHT IN REACH. WILL CONTINUE TO MONITOR IN CARE.
--- NOTE | 2021-03-25 15:03 | NUR ---
Spiritual care visit conducted. Patient immediately talks about the Bible and his thoughts on the soon coming of Raul and the end of times. Pt asks is we could pray for the chaotic state of our world and I gladly do so. Pt adds a prayer to make Anjelica great again. I provide therapeutic listening and a calm presence. Patient responds well and appears to be comforted and encouraged in his own beleif system. I will continue to remain available to patient and family.
--- NOTE | 2021-03-25 19:20 | NUR ---
SHIFT SUMMARY PATIENT A&O X2. AWAITING PLACEMENT AT [facility]. PATIENT IS SBA USING WALKER TO GET UP TO RESTROOM. PATIENT WEARS 2L NC PRN. VITAL SIGNS STABLE. WILL CONTINUE TO MONITOR.
--- NOTE | 2021-03-26 04:22 | NUR ---
SHIFT SUMMARY PT IS AAOX2, PLEASANT AND COOPERATIVE WITH CARE. NO NOTABLE CHANGES THROUGH THE NIGHT. PT IS ABLE TO MAKE HIS NEEDS KNOWN.ALL MEDS WERE GIVEN PER EMAR. PT IS AWAITING ON PLACEMENT. BED IN LOWER POSITION AND CALL LIGHT IN REACH. WILL CONTINUE TO MONITOR.
--- NOTE | 2021-03-26 11:53 | NUR ---
DID ADVISE DR OF HTN. HYDRAL ADMIN
--- NOTE | 2021-03-26 17:23 | NUR ---
PT PLEASNT TODAY. FRIEND IN TO VISIT. NO NEW CONCERNS TODAY. PENDING PLACEMENT. BP IMPROVED. BED IN LOW POSITION, CALL LITE IN REACH, CALLS APPROP
--- NOTE | 2021-03-27 04:33 | NUR ---
SHIFT SUMMARY NO ACUTE CHANGES TO PT CONDITION DURING THIS SHIFT. PT SLEEPING OFF AND ON MOST OF THE NIGHT. PT UP TO RESTROOM A FEW TIMES DURING THE SHIFT. PT HAS CALL LIGHT WITHIN REACH AND HAS NO COMPLAINTS AT THIS TIME. WILL CONTINUE TO MONITOR.
--- NOTE | 2021-03-27 18:46 | NUR ---
PT QUITE PLEASANT TODAY. AMBULATES SBA TO BATHROOM AND BACK. NO NEW CONCERNS NTOED. NO NEW PAIN CONCERNS. STILL PENDING PLACEMENT. BED IN LOW POSITION, DEZ LITE IN REACH, CHAIR ALARM ON FOR SAFETY
--- NOTE | 2021-03-28 03:50 | NUR ---
ORACLE ADF DEVELOPER SUMMARY AWAKE AT INTERVALS WITH OCCASIONAL ATTEMPTS TO GET OUT OF BED AND GO TO THE BATHROOM TO VOID. BED ALARM ON AND PT VOICED ANNOYANCES TO IT. OCCASIONALLY VOIDING ON FLOOR ON HIS WAY TO THE BATHROOM. STAFF CONTINUE TO REDIRECT PT TO USE CALL LIGHT WHEN NEEDING TO VOID. REMAINS FORGETFUL. SAFETY ENCOURAGED. RESTING QUIETLY AT THIS TIME WITH BED ALARM ON.
--- NOTE | 2021-03-28 16:51 | NUR ---
SHIFT SUMMARY PT A&O X3 (NAME, , HOSPITAL) AND IN PLEASENT MOOD T/O SHIFT. UP TO CHAIR MOST OF DAY, WATCHING T.V AND NAPPING. TOLERATING PO INTAKE WELL, DENIES N/V. DENIES CP, PRESSURE, OR SOB. SBA W/ FWW, STEADY GAIT. 2L NC. CONT/INCONT. BED ALARM ON. CALL LIGHT W/IN REACH. VSS.
--- NOTE | 2021-03-29 04:28 | NUR ---
SQL ANALYST SUMMARY AWAKE AT INTERVALS TO GO TO THE BATHROOM TO VOID. SOME INCONTINENCE ON THE FLOOR. REDIRECTED AND ASSISTED NEEDED. CALL LIGHT IN REACH. TEMP WAS ELEVATED EARLIER, TYLENOL GIVEN AND WAS EFFECTIVE. WILL ONT TO MONITOR, RESTING QUIETLY AT THIS TIME
--- NOTE | 2021-03-29 16:35 | NUR ---
SHIFT SUMMARY- PT ALERT AND ORIENTED X3, USES THE CALL LIGHT BUT IS IMPULSIVE AND WILL GET UP RIGHT AFTER PUSHING THE BUTTON. BED AND CHAIR ALARMS ON FOR SAFETY. PT HAS OCCASSIONAL INCONTINENCE ATTENDS IN PLACE, AWAITING PLACEMENT FOR DISCHARGE. NO IV ACCESS ORDERED. PT CONTINUES TO WEAR O2 A HEADBAND MOST OF THE TIME, SATS GREATER THAN 90 ON ROOM AIR.
--- NOTE | 2021-03-30 05:20 | NUR ---
SHIFT SUMMARY A/O 2-3, FORGETFUL AND IMPULSIVE AT TIMES. 1 ASSIST WITH FWW TO BATHROOM. VSS, NO ACUTE CHANGES AT THIS TIME. BED IN LOWEST POSITION WITH CALL LIGHT IN REACH. WILL CONTINUE TO MONITOR AND REPORT TO ONCOMING RN.
--- NOTE | 2021-03-30 11:57 | NUR ---
PT HAS HAD 3 BM'S TODAY. ADMINISTERED IMODIUM AFTER THE FIRST OBSERVED LOOSE STOOL. SECOND DOSE ADMINISTERED AFTER THE SECOND OBSERVED LOOSE STOOL, SOME INCONTINENCE WITH THE WATERY LOOSE STOOL, SOME MORE SOFT PARTS TO THE LAST STOOL. WILL CTM.
--- NOTE | 2021-03-30 16:14 | NUR ---
SHIFT SUMMARY- PT ALERT AND ORIENTED X 2-3 SOME CONFUSION NOTED. PT HAS HAD SOME DIARRHEA TODAY THAT WAS RELIEVED BY 2 DOSES OF IMODIUM. PT STATED PAIN IN THE NECK THAT WAS RELIEVED BY LIDODERM PATCH. PT HAS HAD NO ACUTE CHANGE SINCE THE START OF THE SHIFT. VSS, BED AND CHAIR ALARMS IN USE FOR PT SAFETY, PT STILL USES THE CALL LIGHT AND DDOES OCCASSIONALLY WAIT FOR STAFF TO COME ASSIST HIM (SBA) TO THE BATHROOM. PT CURRENTLY UP IN THE CHAIR CALL LIGHT IN REACH NO S&S OF DISTRESS, O2 OCCASSSIONALLY IN PLACE, PT FREQUENTLY REMOVES IT.
--- NOTE | 2021-03-31 04:27 | NUR ---
HEADEND TECHNICIAN SUMMARY NO ACUTE CHANGES. PT AAOX3 WITH SOME INTERMITTENT FORGETFULNESS. IMPULSIVE SO BED/CHAIR ALARM ON. STANDBY ASSIST W/ FWW TO BATHROOM. PT WAS HAVING SOME LOOSE STOOLS ON DAY SHIFT BUT PT REPORTS THEY ARE A BIT MORE SOLID NOW. WAITING PLACEMENT. VSS, WILL CONTINUE TO MONITOR.
--- NOTE | 2021-03-31 17:29 | NUR ---
SHIFT SUMMARY PT AXO TO SELF, PLACE, SURROUNDINGS AND FOLLOWING DIRECTIONS. PT FORGETFUL AND [place]. VSS. PT MEDICATED FOR PAIN WITH LIDO PATCH PER EMAR TO NECK. NO OTHER COMPLAINTS OF PAIN THIS SHIFT. PT ON 2L O2 VIA NC THAT HE REMOVES FREQUENTLY, SAT 95. NO ACUTE CHANGES THIS SHIFT, NO IV IN PLACE. PT DENIES SOB AND N/V. BED IN LOW POSITION, CALL LIGHT WITHIN REACH, CHAIR AND BED ALARM ON. PT UP TO CHAIR FOR THE DURATION OF THE SHIFT.
--- NOTE | 2021-04-01 05:33 | NUR ---
FERRY CAPTAIN SUMMARY PT STILL AWAITING PLACEMENT AT [facility]. PLEASANT AND COOPERATIVE WITH STAFF. BED ALARM ON DUE TO IMPULSIVENESS. AMBULATES WELL WITH WALKER AND HOLDING ON TO BED. PT HAS URINARY URGENCY AND VOIDS BLADDER WHEN STANDING FROM BED - UNABLE TO MAKE IT TO RESTROOM. PT UNABLE TO USE URINAL WITHOUT ASSISTANCE. NO OTHER CONCERNS THIS SHIFT.
--- NOTE | 2021-04-01 19:17 | NUR ---
SHIFT SUMMARY- PT HAS HAD NO ACUTE CHANGES T/O THE SHIFT. CONTINUES TO BE ON ROOM AIR. PT SITTING UP IN THE CHAIR AT THIS TIME CALL LIGHT IN REACH, PT STILL GETS UP SOON HE CALLS MOST TIMES. SO THE BBED AND CHAIR ALARMS ARE BEING USED FOR PT SAFETY.
--- NOTE | 2021-04-02 04:44 | NUR ---
SHIFT SUMMARY NO ACUTE CHANGES. PT A/O X2, PT IS FORGETFUL AND REMAINS IMPULSIVE SETTING OFF BED ALARM WHEN HE NEEDS TO USE THE BATHROOM. PT WITH NOCTURIA AND URGENCY. PT VERY UNSTEADY ON HIS FEET. BED ALARM IN PLACE FOR SAFETY. PT DENIES NEEDS WHEN ASKED. SLEEPING OFF AND ON T/O MOST OF THE SHIFT.
--- NOTE | 2021-04-02 17:09 | NUR ---
PATIENT IS ALERT AND ORIENTED. IMPULSIVE AT TIMES. INCONTINENT OF URINE, ATTENDS IN PLACE. SBA TO THE BATHROOM WITH FWW. BED ALARM AND CHAIR ALARM IN PLACE. EXPIRATORY WHEEZES T/O LUNGS WITH FINE CRACKLES IN BASES. CHEST XRAY COMPLETE. PATIENT DESATURATED TO 86% ON RA THIS AFTERNOON AND PLACED ON 1.5L O2 VIA NC. BREATHING TREATMENTS WITH RT. WILL CONTINUE TO MONITOR
--- NOTE | 2021-04-03 05:33 | NUR ---
SHIFT SUMMARY A&OX4, NO ADVENTITIOUS HEART SOUNDS, SATING 98% ON 4L, O2 TURNED DOWN TO 3L SAT 94-97%, TURNED TO 2L SAT SUSTAINING 94% WCTM AND TITRATE TO HOME O2 OF 1L. ALONSO. WHEEZES THROUGHOUT. NONE PRODUCTIVE COUGH. LLL LOBECTOMY. RIGHT CHEST PERMACATH, L ARM FISTULA. BIOPSY TO L AXIALA, BANDAID CDI. SOFT BP FIRST SET OF VITALS BP MEDS HELD PER PARAMETERS. NO COMPLAINTS OF PAIN. PATIENT EXPRESSED FEELING CLAUSTROPHOBIC DUE TO EQUIPMENT- TELE, PULSE OX, O2, AND INTERMITTENT IV INFUSIONS. CONTACTED AND TELE DC PATIENT HAS BEEN IN NSR 80S NO ECTOPY SINCE ADMIT PER CREAM GATHERER.
--- NOTE | 2021-04-03 05:46 | NUR ---
SHIFT SUMMARY A&OX2-3, IMPULSIVE, FOLLOWS INSTRUCTIONS. TRACE EDEMA BLE. EXP WHEEZE, FINE CRACKELS IN BASES,1.5L SAT 98%, WEENED TO RA SAT 95%. WCTM. URINARY FREQUENCY AND URGENCY. MEDIUM FORMED STOOL ON NOC. RASH TO BLE. NO COMPLAINTS OF PAIN. SLEPT WELL THROUGH THE NIGHT. NO SIGNIFICANT EVENTS.
--- NOTE | 2021-04-03 08:00 | NUR ---
pt laying in bed eating breakfast, and watching tv, can make his needs known, follows commands, has some confusion, lungs are course t/o, resp even and unlabored, has a harsh wet cough, on r/a, hrr, no edema noted, ppp faint, cap refill <3sec, v.s. stable, afebrile, btx4, abd flat soft nontender, voids without diff, skin has dark skin to b/l jimbo castro perla, call light in reach.
--- NOTE | 2021-04-03 18:30 | NUR ---
pt up to bathroom using walker to ambulate, sat in chair most of the day. no acute changes noted this shift, call light in reach.
--- NOTE | 2021-04-04 05:44 | NUR ---
SHIFT SUMMARY: PATIENT LUNGS WITH COARSE CRACKELS BILATERLALY, EXP WHEEZE, ALONSO, ON RA SAT >92%. INCREASED WET NONPRODUCTIVE COUGH. NOCTURIA. CALLS WHEN NEEDING TO USE THE BATHROOM. MULTIPLE SMALL FORMED BOWEL MOVMENTS ON NOC.
--- NOTE | 2021-04-04 08:00 | NUR ---
pt sitting up on the side of the bed eating breakfast, called to go to the bath room, was in a hurry when came in room. used walker to ambulate, Dr. Acevedo in to see him, no complaints or acute changes, call light in reach.
--- NOTE | 2021-04-04 18:29 | NUR ---
pt had an uneventful day, is impulsive about getting to the bathroom and will not wait until staff can get to him at times. no complaints or needs. call light in reach.
--- NOTE | 2021-04-05 19:01 | NUR ---
PATIENT IS ALERT AND ORIENTED WITH INTERMITTENT CONFUSION. HE IS IMPULSIVE AT TIMES. SBA TO THE BATHROOM WITH FWW. CHAIR AND BEDALARM ARE ON. NO NEW CHANGES THIS SHIFT.
--- NOTE | 2021-04-06 05:12 | NUR ---
Patient stable, no pain or disconfort noted. Patient AAOX3, Confuse and impulsive at time. No acute changes, we are continue with monitoring patient.
--- NOTE | 2021-04-06 17:54 | NUR ---
SHIFT SUMMARY PT SAT UP IN CHAIR MOST OF SHIFT BUT DID NAP & WAKE UP A BIT DISORIENTED. EATING, DRINKING, & VOIDING WELL. BED/CHAIR ALARM T/O SHIFT BUT PT DID USE CALL LIGHT APPROP ALL SHIFT.
--- NOTE | 2021-04-07 04:36 | NUR ---
SHIFT SUMMARY ADMITTED FOR AFIB W/RVR. FULL CODE. PLAN IS FOR PLACEMENT IN [facility]. HE IS IMPULSIVE AND FREQUENTLY EXITS HIS BED. HE IS SHAKY ON HIS FEET. BED ALARM IS ON. HE IS ON ELIQUIS. HE IS REDIRECTABLE. HE IS EXPERIENCING URINARY FREQUENCY. HE DOES NOT USE HIS CALL BUTTON
--- NOTE | 2021-04-07 16:08 | NUR ---
Spiritual care visit conducted. Patient immediately tells me his fears about giving up his home and his cats to move to SNF. Patient is tearful at times and explains about the pains of losing his independence and dignity. We explore sources of meaning, purpose and value. We talks about jessie, hope and love and about how his jessie group would speak to the issues that he is confronted with. I provide emotional support, gentle clinical counselor and prayer. Patient states that he feels a greater sense of value and peace because of the conversationa dn prayer. I will continue to remain available to patient.
--- NOTE | 2021-04-07 18:56 | NUR ---
PATIENT IS ALERT AND ORIENTED TO SELF AND FOLLOWING DIRECTIONS. HE IS IMPULSIVE AT TIMES. BED AND CHAIR ALARM ON. ON RA. NO NEW CONCERNS TODAY. WILL CONTINUE TO MONITOR
--- NOTE | 2021-04-08 06:31 | NUR ---
SHIFT SUMMARY: A&OX2. BASELINE DEMENTIA, IMPULSIVE. EXP WHEEZE AND FAINT CRACKELS TO BILATERAL BASES. PATIENT HAS STRONG PRODUCTIVE COUGH PRODUCING CLEAR/MENENDEZ SPUTUM. NO SIGNIFICANT EVENTS OVERNIGHT.
--- NOTE | 2021-04-09 05:01 | NUR ---
SHIFT SUMMARY: PATIENT SLEPT WELL THROUGH THE NIGHT. CONTINUES WITH COUGH LESS SPUTUM PRODUCTION COMPARED TO PREVIOUS NIGHT. LUNGE REMAIN WITH FAINT CRACKELS IN BASES AND EXP WHEEZE. NO SIGINIFICANT EVENTS OVERNIGHT.
--- NOTE | 2021-04-09 18:20 | NUR ---
SHIFT SUMMARY PATIENT SITTING IN CHAIR EATING DINNER. SPENT MOST OF DAY SITTING UP IN CHAIR. A&O X2. USES CALL LIGHT BUT CAN BE IMPULSIVE AT TIMES. TOOK SHOWER TODAY. CONTINUES TO HAVE PRODUCTIVE COUGH. WAITING FOR PLACEMENT AT [facility]. NO SIGNIFICANT EVENTS T/O SHIFT. WILL CONTINUE TO MONITOR.
--- NOTE | 2021-04-10 03:57 | NUR ---
SHIFT SUMMARY: NO SIGINIFICAT EVENTS OVERNIGHT. REMAINS WITH COUGH, NO LONGER PRODUCING SPUTUM. SBA WITH FWW TO BATHROOM FOR SAFETY. WCTM
--- NOTE | 2021-04-10 18:53 | NUR ---
PATIENT CONDITION REMAINS THE SAME. COOPERATIVE, AND SLEEPING ON AND OFF IN HIS RECLINER TODAY. PATIENT CONTINUES TO COUGH, REPORTING YELLOW/BROWN SPUTUM. PROVIDER WAS MADE AWARE. NO NEW ORDERS. POSSIBLE MEMORY CARE PLACEMENT THIS COMING MONDAY.
--- NOTE | 2021-04-11 04:09 | NUR ---
SENIOR CARE MANAGER SUMMARY WAS AWAKE WATCHING TV SITTING IN BEDSIDE CHAIR UNTIL HS. ASSISTED TO BED, NOTE MORE SELF RELIANT THAN NOTED BEFORE. USING CALL LIGHT INSTRUCTED. CONTINUES TO DISPLAY EXP WHEEZE WITH LUNG SOUNDS. UP TO BATHROOM TO VOID BY SELF WITH STAND BY ASSIST. OTHERWISE HAS BEEN RESTING QUIETLY WHEN OBSERVED. CALL LIGHT IN REACH
--- NOTE | 2021-04-11 18:45 | NUR ---
PATIENT A & O X 2. HE STATES THE YEAR IS 2002. PATIENTS MOOD IS GOOD TODAY AND HE IS THANKFUL, AND LOOKING FORWARD TO BEING PLACED WITH A NEW FACILITY. THE ONLY CONCERN THIS SHIFT, IS THE PRODUCTIVE COUGH THAT IS BRINGING UP YELLOW/BROWN SPUTUM. PATIENTS PAIN IN SHOULDERS AND NECK HAVE BEEN EFFECTIVLY MANAGED WITH LIDOCAIN PATCH. POTENTIAL PLACEMENT INTO [facility]ARE TOMORROW.
--- NOTE | 2021-04-12 03:14 | NUR ---
ROLLED GLASS CROSSCUTTER SUMMARY HAS BEEN RESTING QUIETLY WITH FEW INTERRUPTIONS IN RECLINER SHAIR AT BEDSIDE SINCE HS. WHEN STAFF ASKED HIM IF HE WANTED TO GO TO BED, HE REFUSED EACH TIME. ABLE TO AMBULATE TO BATHROOM WITH WALKER. USING CALL LIGHT INSTRUCTED. NO C/O VOICED. WILL CONTINUE TO MONITOR.
--- NOTE | 2021-04-12 18:46 | NUR ---
PATIENT IN PLEASANT MOOD. PAIN IN SHOULDERS. LIDOCAIN PATCH APPLIED IN AFTERNOON TODAY. PATIENT STILL COUGHING WITH YELLOW PHLEM. NO OTHER CONCERNS.
--- NOTE | 2021-04-13 04:04 | NUR ---
IN[employer]ORE [employer]ER[employer] WARF[employer] OFFICER SUMMARY AWAKE AT INTERVALS THIS SHIFT, SPENT MUCH OF HIS TIME SITTING IN BEDSIDE RECLINER, UP TO BATHROOM TO VOID A FEW TIMES, THEN PUT SELF TO BED. HAS BEEN RESTING QUIETLY WITH FEW INTERRUPTIONS SINCE. CALL LIGHT IN REACH. OCCASIONAL COUGH.
--- NOTE | 2021-04-13 15:02 | NUR ---
Spiritual care visit conducted. Patient immediately tells me that is is possible that a place has opened up for him to relocate to. He also mentions how lonely he has felt recently. Patient tells me that he is trying not to get too excited about the move out of the hospital but he is more than ready to relocate to a more permanent address. Pt talks about the process of losing freedoms and that he is still working on finding a good way to think about it. So, we work on some positive ways of looking at all that he will gain and all that he is still able to do. I also provide therapeutic listening, spiritual support with prayer and companionship. Pt shows signs feeling heard and valued and states that the visit "did him some good." I will continue to remain available to patient.
--- NOTE | 2021-04-13 17:02 | NUR ---
SHIFT SUMMARY PT AOX3. CALLS APPROPRIATELY. [facility] CAME IN TO EVALUATE THE PT FOR MEMORY CARE PLACEMENT TODAY. DENIES CP, NO OTHER ACUTE CHANGES NOTED ON THIS SHIFT. BED IS IN THE LOWEST POSITION AND CALL LIGHT WITHIN REACH
--- NOTE | 2021-04-14 03:21 | NUR ---
TRANSPORT COORDINATOR SUMMARY WS UP TO THE BATHROOM A FEW TIMES BEFORE HS. ABLE TO PUT SELF TO BED AFTER, WAS RESTING QUIETLY WITH FEW INTERRUPTIONS UNTIL A FEW MINUTES AGO, NOTED LOUD COUGHING SPELL, WITH SOME THICK SECRETIONS. ASKED FOR AND RECIEVED A CUP OF WATER. COUGHING STOPPED, RESTING QUIETLY AGAIN. CALL LIGHT IN REACH. STILL AWAITING PLACEMENT.
--- NOTE | 2021-04-14 17:23 | NUR ---
PT IS A/OX3, PLEASANT AND COOPERATIVE, APPEARS TO BE BREATHING EASILY ON RA AT THIS TIME. THE PT REPORTED CHRONIC NECK AND SHOULDER PAIN A LIDODERM PATCH WAS APPLIED TO THE AFFECTED AREA. PT HAS BEEN UP IN THE CHAIR FOR MOST OF THE DAY. PLAN IS FIR THE PT TO DISCHARGE THIS MONDAY. CALL LIGHT IN REACH. WILL CONTINUE TO MONITOR AND ASSESS FOR CHANGES
--- NOTE | 2021-04-15 04:23 | NUR ---
PT STAYED IN CHAIR ALL NIGHT, BUT SLEPT WELL. PLAN TO D/C MONDAY TO [facility]. NO ACUTE CHANGE IN STATUS. CONTINUE POC.
--- NOTE | 2021-04-15 17:22 | NUR ---
PT IS A/OX3 PLEASANT AND COOPERATIVE. THE PT IS UP IND IN HIS ROOM TO THE BATHROOM. THE PT APPEARS TO BE BREATHING EASILY ON RA AT THIS TIME. PT HAS CHRONIC NECK PAIN LIDOCAIN PATCH APPLIED TO THE AFFECTED AREA. THE PT HAS BEEN UP IN THE CHAIR FOR MOST OF THE DAY. PTS POA WAS IN TO SEE HIM TODAY. CALL LIGHT IN REACH. WILL CONTINUE TO MONITOR AND ASSESS FOR CHANGES
--- NOTE | 2021-04-16 03:42 | NUR ---
SHIFT SUMMARY NO ACUTE CHANGES DURING THE SHIFT. PT SLEPT OFF AND ON IN THE RECLINER THIS SHIFT, DENYING NEEDS WHEN ASKED. PT PLESANT AND COOPERATIVE WITH CARE. PLAN IS FOR DISCHARGE TO [facility] . BED IN LOWEST POSITION, CALL LIGHT WITHIN REACH.
[2021-04-16 08:30] LABS: SARS-Cov-2 (COVID-19) Antigen Negative (NEGATIVE)
[2021-04-16] MEDS ORDERED: OMEP20ER PO (09:28)
[2021-04-16] MEDS ORDERED: Seroquel Xr50 MG PO (09:28)
[2021-04-16] MEDS ORDERED: LISI20 PO (09:28)
--- NOTE | 2021-04-16 09:55 | NUR ---
DISCHAGE SUMMARY PT DISCHARGED TO [facility]. PT LEFT ROOM AT 0950 VIA WHEELCHAIR WITH TRANSPORT SERVICE. REPORT CALLED BY THIS NURSE AT 0951 TO ANA MARIA PROCTOR. ALL QUESTSIONS ANSWERED AND SHE STATED THAT ED WAS PRESENT AT THE FACILITY AT THIS TIME "PUTTING THE FINISHING TOUCHES ON LAURE'S ROOM." NO IV IN PLACE AT TIME OF DC. ALL BELONGINGS RETURNED AND DISCHARGE TEACHING COMPLETED WITH THE PATIENT.
== END 2021-04-16 09:49 | disposition home or self-care (01) | DRG 308 ==
LOC: ER 15:04 → MEDS 15:05
PROVIDERS: Emergency Medicine; Family Medicine; Internal Medicine; Student in an Organized Health Care Education/Training Program; ADMIT Internal Medicine
DX: I48.91 Unspecified atrial fibrillation (principal); G92.8 Other toxic encephalopathy; F02.81 Dementia in other diseases classified elsewhere, unspecified severity, with behavioral disturbance; F05 Delirium due to known physiological condition; Z20.822 Contact with and (suspected) exposure to COVID-19; Z60.2 Problems related to living alone; R29.6 Repeated falls; G30.9 Alzheimer's disease, unspecified; M40.202 Unspecified kyphosis, cervical region; I10 Essential (primary) hypertension; J43.9 Emphysema, unspecified; M54.2 Cervicalgia; N40.0 Benign prostatic hyperplasia without lower urinary tract symptoms; K21.9 Gastro-esophageal reflux disease without esophagitis; Z86.73 Personal history of transient ischemic attack (TIA), and cerebral infarction without residual deficits; Z98.890 Other specified postprocedural states; Z87.891 Personal history of nicotine dependence; Z99.81 Dependence on supplemental oxygen; Z88.8 Allergy status to other drugs, medicaments and biological substances; Z79.01 Long term (current) use of anticoagulants; Z79.899 Other long term (current) drug therapy; Z79.82 Long term (current) use of aspirin
CPT/HCPCS: 36415; 70450; 71045; 80047; 80048; 80053; 81001; 84443; 84484; 85014; 85025; 87426; 93005; 93010; 94640; 94660; 94664; 94760; 94762; 96365; 96372; 96375; 97110; 97112; 97116; 97129; 97130; 97161; 97165; 97530; 97530-CQ; 97535; 99285-25; A9270; C9803; G0378; J0360; J3475

== ENCOUNTER 2021-04-19 07:57 | Inpatient (IN) | payer OTHER ==
[~2021-04-19] VITALS: Ht 182.9 cm; Wt 95.0 kg
[~2021-04-19 07:57] MED LIST changes: +ALBU90OI INH; +ASMANEX HFA13 G4 INH; +LIDO700A20 TOP; +LISI20 PO; +METO50ER PO; +STRIVERDI RESPIM4 G1 INH; +Seroquel Xr50 MG PO
[2021-04-19 09:49] LABS: BASOPHILS ABSOLUTE AUTO 0.08 K/mm3 (0.00-0.23); BASOPHILS PERCENT AUTO 1 % (0-2); EOSINOPHILS ABSOLUTE AUTO 0.04 K/mm3 (0.00-0.68); EOSINOPHILS PERCENT AUTO 0 % (0-6); Hematocrit 48.2 % (37.0-53.0); Hemoglobin 14.8 g/dL (13.5-17.5); IMMATURE GRAN ABSOLUTE AUTO 0.08 K/mm3 (0.00-0.10); IMMATURE GRAN PERCENT AUTO 1 % (0-1); LYMPHOCYTES ABSOLUTE AUTO 1.57 K/mm3 (0.84-5.20); LYMPHOCYTES PERCENT AUTO 10 % (21-46); MONOCYTES ABSOLUTE AUTO 0.78 K/mm3 (0.16-1.47); MONOCYTES PERCENT AUTO 5 % (4-13); Mean Corpuscular HGB 29.8 pg (26.0-34.0); Mean Corpuscular HGB Conc 30.7 g/dL (31.5-36.5); Mean Corpuscular Volume 97 fL (80-100); Mean Platelet Volume 10.9 fL (9.1-12.4); NEUTROPHILS ABSOLUTE AUTO 12.83 K/mm3 (1.96-9.15); NEUTROPHILS PERCENT AUTO 83 % (41-73); Platelet Count 180 K/mm3 (150-400); RDW Coefficient Variation 13.6 % (11.7-14.2); RDW Standard Deviation 48.6 fL (35.1-46.3); Red Blood Cell Count 4.96 M/mm3 (4.30-5.90); White Blood Cell Count 15.38 K/mm3 (4.00-11.30)
[2021-04-19 12:04] LABS: Alanine Aminotransfer (ALT/SGP 29 U/L (12-78); Albumin/Globulin Ratio 0.7 (0.8-1.8); Alk Phos 108 U/L (50-136); Anion Gap 5 mmol/L (6-16); Aspartate Aminotrans (AST/SGOT 25 U/L (12-37); Bilirubin, Total 0.6 mg/dL (0.1-1.0); Blood Urea Nitrogen 16 mg/dL (8-24); CO2, Blood 30 mmol/L (21-32); Calcium, Blood 9.4 mg/dL (8.5-10.1); Chloride, Blood 105 mmol/L (98-108); Creatinine, Blood 0.73 mg/dL (0.60-1.20); Globulin, Blood 4.4 g/dL (2.2-4.0); Glomerular Filtration Rate >60 (60-); Glucose, Blood 121 mg/dL (70-99); Potassium, Blood 4.4 mmol/L (3.5-5.5); Sodium, Blood 140 mmol/L (136-145); Total Protein, Blood 7.4 g/dL (6.4-8.2)
[2021-04-19 13:25] LABS: Influenza A, PCR NEGATIVE (NEGATIVE); Influenza B, PCR NEGATIVE (NEGATIVE); Resp Syncytial Virus, PCR NEGATIVE (NEGATIVE); SARS-Cov-2 (COVID-19) PCR, MMC POSITIVE (NEGATIVE)
--- NOTE | 2021-04-19 17:04 | NUR ---
SHIFT SUMMARY PT A&OX2-3, VSS/RA, PLEASANT & COOPERATIVE WITH CARE. PAIN TREATED WITH 5 OXY. STEVEN PO. VOIDING WELL/URINAL, WITH ASSIST. REPOSITIONS WELL WITH ASSIST. CONSULT COMPLETE WITH DR GARVIN: PLAN FOR NPO MIDNIGHT/O.R. ON MONDAY. LAST TAKEN ELIQUIS CONFIRMED WITH LOWELL WAS 2/6 AT BEDTIME. WILL REPORT TO ONCALEJANDRO ALONSO RN.
--- NOTE | 2021-04-20 00:01 | NUR ---
HR FLUCTUATING FROM 90S - 110S, PT. SLEEPING, NO S/S OF RESP./CV DISTRESS NOTED.
--- NOTE | 2021-04-20 02:53 | NUR ---
HR OF ON THE 90S TO 100/MIN., PT. COMFORTABLY SLEEPING.
--- NOTE | 2021-04-20 03:34 | NUR ---
SHIFT SUMMARY: PATIENT'S HR WAS FLUCTUATING FROM LOW 100S TO 130S AT THE BEGINNING OF THE SHIFT, O2 RAISED TO 2 L FOR ALMOST AN HOUR TO KEEP O2 SAT ABOVE 92% WHICH ALSO HELPED HR TO GO DOWN TO LOW 120S, METOPROLOL GIVEN, HR SLOWLY WENT DOWN TO 90S. KEEPING O2 AT 1 L VIA NC WITH O2 SAT 95% & ABOVE. NO S/S OF RESP./CV DISTRESS NOTED THROUGHOUT THE NIGHT, PT. SLEEPING WELL, BIOX MONITORING OUTSIDE THE ROOM. PT. KEPT DRY BY ASSISTING USAGE OF URINAL. WILL CONTINUE TO MONITOR.
[2021-04-20 04:23] LABS: Hemoglobin 14.3 g/dL (13.5-17.5); Mean Corpuscular HGB 30.2 pg (26.0-34.0); Mean Corpuscular HGB Conc 31.8 g/dL (31.5-36.5); Mean Corpuscular Volume 95 fL (80-100); Mean Platelet Volume 10.9 fL (9.1-12.4); Platelet Count 174 K/mm3 (150-400); RDW Coefficient Variation 13.9 % (11.7-14.2); RDW Standard Deviation 48.3 fL (35.1-46.3); Red Blood Cell Count 4.73 M/mm3 (4.30-5.90); White Blood Cell Count 14.34 K/mm3 (4.00-11.30)
--- NOTE | 2021-04-20 04:25 | NUR ---
SKIN TEAR TO LLE COVERED WITH ALLEVYN DRESSING. SCD TO LLE ONLY RELATED TO TRACTION TO RLE.
[2021-04-20 04:51] LABS: Anion Gap 4 mmol/L (6-16); Blood Urea Nitrogen 16 mg/dL (8-24); Bun/Creatinine Ratio 18.9 (12.0-20.0); CO2, Blood 31 mmol/L (21-32); Calcium, Blood 9.8 mg/dL (8.5-10.1); Chloride, Blood 103 mmol/L (98-108); Creatinine, Blood 0.85 mg/dL (0.60-1.20); Glomerular Filtration Rate >60 (60-); Glucose, Blood 124 mg/dL (70-99); Sodium, Blood 138 mmol/L (136-145)
--- NOTE | 2021-04-20 16:25 | NUR ---
SHIFT SUMMARY PT A&OX2-3, VSS/1LNC, BIOX-SATS >92% HR 80-110, HOB 30 DEGREES, STEVEN PO, VOIDING WELL/URINAL ASSIST, BM/BEDPAN, REPOSITIONS WITH ASSIST. PAIN MANAGED WITH 5 OXY AND 12.5/25 FENT PRN. R HIP FX/TRACTION, SCD ON LLE. PLAN FOR NPO MIDNIGHT AND O.R. TOMORROW. WILL REPORT TO ONCOMING NOC RN.
--- NOTE | 2021-04-20 22:22 | NUR ---
[address] Myke VIDAL RE: THIS PT'S B/P & HR OF ON THE 120S UP TO 140S ON THE BIOX MONITOR. TELEPHONE ORDER RECEIVED TO START NS AT 75 ML/HR., PLACE ON CARDIAC TELEMETRY MONITORING, HYDRALAZINE 10 MG. IV Q 6 HRS PRN FOR SBP 160 & ABOVE, BLADDER SCAN Q SHIFT & UPDATE MD WITH HR AFTER AN HOUR, TORB.
--- NOTE | 2021-04-20 22:27 | NUR ---
BLADDER SCAN DONE WITH RESULT OF 80 ML.
--- NOTE | 2021-04-20 23:43 | NUR ---
[address] Myke VIDAL RE: UPDATE ON HR, TELEPHONE ORDER RECEIVED TO GIVE LOPRESSOR 5 MG IV X1 NOW, TORB.
--- NOTE | 2021-04-21 01:15 | NUR ---
[address] JC RE: PT'S ON GOING B/P & HEART RATES, DR. JC SAID " I WILL PUT THE ORDER IN FOR CARDIZEM 10 MG IV".
--- NOTE | 2021-04-21 03:38 | NUR ---
[address] JC RE: THIS PATIENT'S B/P & HR SINCE POST CARDIZEM ADMINISTRATION CLOSE TO 129 TODAY,TELEPHONE ORDER RECEIVED TO GIVE CARDIZEM 10 MG IV X1 IF HR SUSTAINS AT 130S FOR 20 MINUTES OR MORE, OTHERWISE JUST OBSERVE, TORB.
--- NOTE | 2021-04-21 04:15 | NUR ---
SHIFT SUMMARY: PT. HAS ISSUES WITH B/P & HR SINCE THE BEGINNING OF THE SHIFT, NOTIFIED MD SEVERAL TIMES, SEE NOTES. AT TIMES O2 SAT DROPPED TO 70S & 80S WITH NC ACCIDENTALLY GOT PULLED BY PT. CONTINOUSLY MONITORING O2 SAT & HR THROUGH BIOX. INTERMITTENT INCONTINENCE WITH BOWEL & BLADDER. NEEDING ASSISTANCE WITH USE OF URINAL. VOIDING CLEAR PAULETTE URINE. TRACTION & SCD IN USE. COMPLAINTS OF PAIN MEDICATED, SEE EMAR. COMFORTABLY SLEPT DURING THE SHIFT. EXPIRATORY WHEEZING & DIMINISHED BREATH SOUNDS NOTED.WILL CONTINUE TO MONITOR.HTN & TACHYCARDIA/AFIB MEDICATED, SEE EMAR.
--- NOTE | 2021-04-21 05:35 | NUR ---
0420 PT. STARTED SCREAMING " HELP, HELP", WHEN i WENT IN TO THE ROOM ASKING HIM WHAT HE NEEDED, PT. SAID " DON'T LEAVE ME, WHICH ROOM AM I AT?" I TOLD HIM HE IS AT THE HOSPITAL. PT. THEN ASKED ME TO TAKE HIM TO THE LOBBY. PT. WAS CONFUSED, I KEPT EXPLAINING TO HIM WHAT HAPPENED, WHICH HE WAS LISTENING BUT WHEN I GO OUT OF THE ROOM HE WOULD SCREAM AGAIN " ANYBODY HERE? HELP ME" & SO ON & SO FORTH. BEEN BACK & FORTH IN THE ROOM SEVERAL TIMES. AFTER ABOUT 30 MINUTES, PT. STARTED TO REALIZE THAT HE HAS BEEN HERE AT THE HOSPITAL FOR 2 DAYS.WILL CONTINUE TO MONITOR.
--- NOTE | 2021-04-21 11:55 | NUR ---
CALLED DR GOMEZ 904, NOTIFIED THAT HR IS A FIB RATE 116-126. NEEDING TO DECREASE HR BEFORE SURGERY TODAY CLOSE TO [address] FALK WHO WAS AT THE PT'S BEDSIDE 0830. NEW ORDERS RECEIVED FOR HR CONTROL
--- NOTE | 2021-04-21 18:22 | NUR ---
CALLED DR GOMEZ AND NOTIFIED OF EMESIS X3 TODAY APPROX 150ML OF BILE, PASSING GAS AND HAD LIQ MENENDEZ BM THIS AM. HAS NO NAUSEA BUT STATES NO APPETITE. NOTIFIED OF HR ELEVATED TO 130'S, ORDER FOR LR 1L BOLUS AND METOPROLOL
--- NOTE | 2021-04-21 18:24 | NUR ---
SUMMARY- PT ALERT TO SELF AND PLACE AND CIRCUMSTANCE. BEGINNING TO BE INCREASINGLY CONFUSED THE SUN SETS. PLAN WAS TO HAVE SURGERY BUT HAS BEEN POSTPONED UNTIL TOMORROW. R LEG PAIN CONTROLLED WITH ALTERNATING OXYCODONE AND FENT IV. NS INFUSING ALL DAY 75ML/HR. LR BOLUS THIS AM 500ML AND THIS PM 1L LR BOLUS. PT ON TELE WITH A-FIB, MULT PRN'S FOR RAPID RATE INTO 120'S-130'S. HR BROUGHT DOWN AFTER CARDIZEM 10MG DOSE AT 1340 AND CONTINUED TO ESELATE. CALLED [facility] FOR ADDITIONAL ORDERS TO CONTROL HR. ALSO ABD XRAY RELATED TO PT HAVING BILE EMESIS TODAY X3. R LEG IN TRACTION, TURNED LITTLE BITS SIDE TO SIDE TO RELEIVE PRESURE.
[2021-04-21 19:18] LABS: BASOPHILS ABSOLUTE AUTO 0.04 K/mm3 (0.00-0.23); BASOPHILS PERCENT AUTO 0 % (0-2); EOSINOPHILS ABSOLUTE AUTO 0.02 K/mm3 (0.00-0.68); EOSINOPHILS PERCENT AUTO 0 % (0-6); Hematocrit 41.6 % (37.0-53.0); Hemoglobin 13.5 g/dL (13.5-17.5); IMMATURE GRAN ABSOLUTE AUTO 0.05 K/mm3 (0.00-0.10); IMMATURE GRAN PERCENT AUTO 0 % (0-1); LYMPHOCYTES ABSOLUTE AUTO 1.24 K/mm3 (0.84-5.20); LYMPHOCYTES PERCENT AUTO 10 % (21-46); MONOCYTES ABSOLUTE AUTO 1.22 K/mm3 (0.16-1.47); MONOCYTES PERCENT AUTO 9 % (4-13); Mean Corpuscular HGB 30.5 pg (26.0-34.0); Mean Corpuscular HGB Conc 32.5 g/dL (31.5-36.5); Mean Corpuscular Volume 94 fL (80-100); NEUTROPHILS ABSOLUTE AUTO 10.51 K/mm3 (1.96-9.15); NEUTROPHILS PERCENT AUTO 80 % (41-73); Platelet Count 134 K/mm3 (150-400); RDW Coefficient Variation 13.9 % (11.7-14.2); RDW Standard Deviation 47.7 fL (35.1-46.3); Red Blood Cell Count 4.43 M/mm3 (4.30-5.90); White Blood Cell Count 13.08 K/mm3 (4.00-11.30)
[2021-04-21 19:34] LABS: Anion Gap 6 mmol/L (6-16); Blood Urea Nitrogen 25 mg/dL (8-24); Bun/Creatinine Ratio 34.9 (12.0-20.0); CO2, Blood 30 mmol/L (21-32); Calcium, Blood 9.7 mg/dL (8.5-10.1); Chloride, Blood 102 mmol/L (98-108); Creatinine, Blood 0.72 mg/dL (0.60-1.20); Glomerular Filtration Rate >60 (60-); Glucose, Blood 125 mg/dL (70-99); Potassium, Blood 3.1 mmol/L (3.5-5.5); Sodium, Blood 138 mmol/L (136-145)
--- NOTE | 2021-04-22 01:16 | NUR ---
SHIFT SUMMARY: RECEIVED PT. WITH HR OF ON HIGH 110S - 140S, AFIB PER RESEARCH/PROGRAM DIRECTOR. DISTENDED ABDOMEN, NGT PLACED TOGETHER WITH GONZÁLEZ LEMUS RN. O2 AT 2L NC WITH O2 SAT ON 95% & ABOVE. AROUND 2200 PT. PULLED HIS O2 CANNULA & NGT. I INSERTED A NEW NGT AT 2245, PLACEMENT CHECKED & VERIFIED ALSO BY SWETA RODGERS. ORDER TO APPLY WRIST RESTRAINT OBTAINED. Q 2 HOURS THEN PRN CHECK IMPLEMENTED. PT. IS INCONTINENT, ATTENDS PLACED. PT. CONFUSED & FORGETFUL. AT 0156 LOPRESSOR GIVEN FOR HR OF ON THE 130S & 140S FOR MORE THAN 15 MINUTES. HR THEN WENT DOWN TO LOW 100S FOR ABOUT 10 MINUTES THEN STARTED BOUNCING UP AGAIN TO HIGH 110S TO HIGH 120S.WILL CONTINUE TO MONITOR.
--- NOTE | 2021-04-22 01:43 | NUR ---
NGT CONNECTED TO WALL SUCTION AT LOW INTERMITTENT SUCTION PER MD ORDER.
[2021-04-22 04:44] LABS: Hematocrit 40.9 % (37.0-53.0); Mean Corpuscular HGB 30.1 pg (26.0-34.0); Mean Corpuscular HGB Conc 31.8 g/dL (31.5-36.5); Mean Corpuscular Volume 95 fL (80-100); Mean Platelet Volume 11.6 fL (9.1-12.4); Platelet Count 140 K/mm3 (150-400); RDW Coefficient Variation 13.9 % (11.7-14.2); RDW Standard Deviation 48.5 fL (35.1-46.3); Red Blood Cell Count 4.32 M/mm3 (4.30-5.90); White Blood Cell Count 13.44 K/mm3 (4.00-11.30)
[2021-04-22 05:15] LABS: Anion Gap 6 mmol/L (6-16); Blood Urea Nitrogen 25 mg/dL (8-24); Bun/Creatinine Ratio 33.8 (12.0-20.0); CO2, Blood 29 mmol/L (21-32); Calcium, Blood 10.1 mg/dL (8.5-10.1); Chloride, Blood 103 mmol/L (98-108); Creatinine, Blood 0.74 mg/dL (0.60-1.20); Glomerular Filtration Rate >60 (60-); Glucose, Blood 130 mg/dL (70-99); Potassium, Blood 3.8 mmol/L (3.5-5.5); Sodium, Blood 138 mmol/L (136-145)
--- NOTE | 2021-04-22 05:42 | NUR ---
[address] JC OF THIS PT'S HR OF ON THE HIGH 120S - 140'S THAT WOULD WOULD STAY FOR 1 - 2 MINS, ASKED IF SHE HAS SOMETHING TO ADD WITH THE LOPRESSOR PRN ORDER, TELE[DIPTI ORDER RECEIVED THAT THERE'S NO ADDITIONAL MEDICATION ORDER AT THIS TIME BUT TO GIVE ZYPREXA & OTHER PRN TO KEEP HIM RELAXED, TORB.
--- NOTE | 2021-04-22 05:48 | NUR ---
NGT OUTPUT OF 700 ML OF BILE COLORED STOMACH SECRETIONS FOR THE WHOLE SHIFT.
--- NOTE | 2021-04-22 13:57 | NUR ---
04/22/21 Ana Paula Duque UPON ARRIVAL TO OR, STAFF NOTICIED RIGHT FOREARM IV SITE NOT IN USE BUT WAS INFILTRATED AND SKIN ABOVE SITE WAS SWOLLEN. IV WAS D/C AND NOTIFIED.
--- NOTE | 2021-04-22 18:16 | NUR ---
RAPID RESPONSE CALLED 1739- POST OP 1645 R HIP ELYSSA, BEGAN TO AWAKEN AND BECAME AGGITATES, PUNCHING AND KICKING AT STAFF. TRYING TO GET OOB. HR ELEVATED INTO 140-150'S. LOST BOTH IV'S. STARTED NEW IV AND ABLE TO GIVE FENT, ATIVAN AND LOPRESSOR AND PT CALMED AND HR/BP RECOVERED WNL.
--- NOTE | 2021-04-22 18:18 | NUR ---
1640- RETURNED POST OP- SLEEPY AND CONFUSED. OCC NEED TO REMIND PT TO BREATH. OXYGEN TURNED UP TO 6L RELATED TO MOUTH BREATING AND PT NOT WILLING TO COUGH AND DEEP BREATH. PT RETURNED FROM OR WITH ONLY ONE LEAKY IV ON THE LF- RIGHT ARM IV HAD BEEN REMOVED. ATTEMPTING TO RESTART IV. POST OP VITALS DIFFICULT TO OBTAIN BECAUSE WHEN PT WAKES UP HE IS RIGID AND FIDGITY. WILL EDIL CLOSELY
--- NOTE | 2021-04-22 23:43 | NUR ---
ASSUMED CARE OF PATIENT AT APPROIMATELY 2315 FROM PAINT DIPPER SWETA Cannon PATIENT ARRIVED TO UNIT VIA STRETCHER; TRADED BED. PATIENT ABLE TO STATE NAME. PATIENT SLOW TO RESPOND. PATIENT DENIES PAIN. PATIENT REPORTD HE WOULD LIKE TO GET DRESSED; EDUCATED ON S/P SURGERY AND PATIENT AGREED TO A GOWN AND WARM BLANKET; PATIENT CURRENTLY SLEEPING. PATIENT ARRIVED WITH DNR BRACELET ON; ORDERS FOR FULL CODE; REMOVED ARMBAND. PATIENT AFIB 110-120'S; OXYGEN SATURATION ABOVE 90% ON 6LPM VIA OXYMIZER UPON ARRIVAL; TITRATED DOWN TO 2 AND OXYGEN SATURATION 100%. DRESSING TO RIGHT HIP C/D/I; NG TUBE IN PLACE; PER REPORT HOSPITALIST NOTIFIED OF BM; ACTIVE BOWEL SOUNDS AND SOFT ABDOMEN; PAINT DIPPER REPORTED ORDERS TO REMOVE NG TUBE AND REPLACE IF PATIENT BECAME NAUSEATED OR VOMITS. PIV INFUSING IVF PER ORDER. RESTRAINTS IN PLACE.
--- NOTE | 2021-04-23 00:14 | NUR ---
PT WAS TAKEN TO PCU 3. REPORT WAS GIVEN TO RADHA RODGERS. SINCE THE BEGINNING OF THE SHIFT THE PT HAS BEEN AGITATED; KICKING AND TRYING TO PULL LINES. SBP WAS 85 AND PT WAS GETTING LR AT 500 ML/HR. CHECKING FOR BP WAS VERY DIFFICULT DUE TO PT KICKING AND MOVING ARMS TO GRAB LINES. SATS WERE NOT ABLE TO READ DUE TO FEET BEEN VERY COLD AND PULLING. AFTER LR AT 500 ML/HR, SBP INCREASED TO 170/80. BEFORE PT WAS TAKEN TO PCU SBP CAME DOWN TO 130/70, HR 100. DR VIDAL CAME TO SEE THE PT AND ORDERED TO BLADER SCAN AND GIVE HYDRALAZINE IF SBP WAS GREATER THAN 160. FENTANYL WAS GIVEN AND PT BECOME LESS AGITATED. BLADDER SCAN WAS 375. SOON AFTER BLADDER SCAN THE PT VOIDED 350 AND VOIDED ON BRIEF AND HAD SOME BOWEL MOVEMENT TOO; WATERY WITH SOME LOOSE. ABDOMEN WAS SOFT AND WITH HYPO BOWEL SOUNDS. DR VIDAL ORDERED NG TUBE TO BE DISCONTINUE AND XRAY TO BE DONE IN THE MORNING. IF THE PT STARTS TO VOMITE, NG TUBE TO BE PLACED AGAIN. PT IS IN FOUR POINT SOFT RESTRAINT. SKIN AND BLOOD CIRCULATION WERE ASSESSED; SKIN AND BLOOD CIRCULATION WERE INTACT. BEFORE PT WAS SENT TO PCU, PT GOT CLEANED UP. AQUACELL DRESSING GOT REPLACED; PT REMOVED DRESSING FROM SURGERY. INCISION WITH ZOHREH WERE INTACT. CHARGE NURSE WAS INFORMED AT ALL TIMES OF CHANGES AND NEW ORDERS WITH PT. THIS NURSE WAS WITH THE PT SINCE THE BEGINNING OF THE SHIFT UNTIL PT WAS TAKEN TO PCU.
[2021-04-23 03:37] LABS: BASOPHILS ABSOLUTE AUTO 0.01 K/mm3 (0.00-0.23); BASOPHILS PERCENT AUTO 0 % (0-2); EOSINOPHILS PERCENT AUTO 0 % (0-6); Hematocrit 34.9 % (37.0-53.0); IMMATURE GRAN ABSOLUTE AUTO 0.06 K/mm3 (0.00-0.10); IMMATURE GRAN PERCENT AUTO 1 % (0-1); LYMPHOCYTES ABSOLUTE AUTO 0.87 K/mm3 (0.84-5.20); LYMPHOCYTES PERCENT AUTO 7 % (21-46); MONOCYTES ABSOLUTE AUTO 1.03 K/mm3 (0.16-1.47); MONOCYTES PERCENT AUTO 9 % (4-13); Mean Corpuscular HGB Conc 31.5 g/dL (31.5-36.5); Mean Corpuscular Volume 95 fL (80-100); Mean Platelet Volume 11.4 fL (9.1-12.4); NEUTROPHILS ABSOLUTE AUTO 10.05 K/mm3 (1.96-9.15); NEUTROPHILS PERCENT AUTO 84 % (41-73); Platelet Count 105 K/mm3 (150-400); RDW Coefficient Variation 13.8 % (11.7-14.2); RDW Standard Deviation 48.2 fL (35.1-46.3); Red Blood Cell Count 3.67 M/mm3 (4.30-5.90); White Blood Cell Count 12.02 K/mm3 (4.00-11.30)
[2021-04-23 03:50] LABS: Anion Gap 4 mmol/L (6-16); Blood Urea Nitrogen 34 mg/dL (8-24); Bun/Creatinine Ratio 45.2 (12.0-20.0); CO2, Blood 28 mmol/L (21-32); Calcium, Blood 9.5 mg/dL (8.5-10.1); Chloride, Blood 108 mmol/L (98-108); Creatinine, Blood 0.75 mg/dL (0.60-1.20); Glomerular Filtration Rate >60 (60-); Glucose, Blood 121 mg/dL (70-99); Potassium, Blood 4.1 mmol/L (3.5-5.5); Sodium, Blood 140 mmol/L (136-145)
--- NOTE | 2021-04-23 04:05 | NUR ---
Q6 BLADDER SCAN 244; PATIENT VOIDED 200 INTO URINAL AND ATTENDS HAD ONE VOID; NG TUBE REMOVED; PATIENT WAS HAVING PAIN; MEDICATED PER EMAR W/ GOOD RESULTS
--- NOTE | 2021-04-23 06:15 | NUR ---
PATIENT SLEPT ABOUT SIX HOURS. VSS. TURNED FROM LEFT TO SUPINE ALL NIGHT. NO OTHER ACUTE CHANGES TO REPORT.
--- NOTE | 2021-04-23 06:49 | NUR ---
PATIENT WAKING UP MORE; CONFUSED ABOUT EVENTS BUT ABLE TO UNDERSTAND HE IS IN THE HOSPITAL; ICE PLACED ON HIP
--- NOTE | 2021-04-23 08:23 | NUR ---
CARE ASSUMPTION: PATIENT ALERT TO SELF. ABLE TO REORIENT EASILY. TRYING TO GET OUT OF BED THIS MORNING AND PULLING AT LINES. 4 POINT SOFT RESTRAINTS IN PLACE. STATES HE HAS SOME NUMBNESS/TINGLING IN ARMS AND LEGS. PERRLA. EQUAL UROGYNECOLOGY PHYSICIAN STRENGTH. RIGHT POSTERIOR HIP PRECAUTIONS IN PLACE. ON 2 L OXYMIZER SATING MID 90'S. LUNGS SOUNDING CLEAR AND DIM IN BASES. OCCASIONAL LOOSE SOUNDING COUGH. TELE SHOWING AFIB WITH HR 110-120'S. DENIES CHEST PAIN/PRESSURE. BP STABLE. HR INCREASING TO 140'S THIS AM WITH AGGITATION. DENIES ABDOMINAL PAIN, STATES HE HAS SLIGHT NAUSEA. ATTENDS IN PLACE. Q6 BLADDER SCANS, HELPING PATIENT WITH URINAL. RIGHT HIP DRESSING C/D/I. RIGHT HIP BRUISING DISTAL TO DRESSING. PATIENT STATES HE HAS SOME SORENESS IN HIP AND SHOULDERS. MORNING TYLENOL PROVIDED. Q2 TURNING. BISHOP HOSE IN PLACE. LR RUNNING AT 100 ML/HR. CALL LIGHT IN REACH. BED ALARM AND CAMERA ON FOR SAFETY. WILL ATTEMPT BEDSIDE SWALLOW EVAL THIS AM.
--- NOTE | 2021-04-23 11:26 | NUR ---
UPDATE: SPOKE WITH DR. COLES TO UPDATE ON X-RAY RESULTS. PATIENT OKAY TO ADVANCE TO CLEAR LIQUID DIET. NURSING BEDSIDE SWALLOW EVAL DONE. PATIENT SWALLOW WNL AT THIS TIME. MEDS WITH WATER OR APPLESAUCE. PHYSICAL THERAPY IN TO SEE PATIENT. PATIENT ABLE TO SIT ON EDGE OF BED. RESTRAINTS REMOVED AT 0940. CAMERA MONITORS UPDATED. PATIENT SLEEPING AT THIS TIME. DR. FALK IN TO ASSESS HIP. NO NEW ORDERS AT THIS TIME. WILL CONTINUE TO MONITOR.
--- NOTE | 2021-04-23 17:51 | NUR ---
SHIFT SUMMARY: PATIENT NEURO REMAINS UNCHANGED. ON 2 L SATING MID-HIGH 90'S. DENIES SOB. PRN BREATHING TREATMENTS. TELE SHOWING AFIB WITH HR AVERAGIN 90-110'S. HR ELEVATED THIS EVENING AT 130-140'S. DR. COLES CALLED TO UPDATE ON HR. NEW ORDERS FOR NIGHT DOSE OF TOPROL XL TO BE GIVEN EARLY. SEE EMAR. BP STABLE AT THIS TIME. DENIES ABDOMINAL PAIN/NAUSEA. USING URINAL WITH ASSISTANCE. WORKED WITH PT AND OT TODAY. PATIENT SLEEPING ON AND OFF. SMALL AMOUNTS OF PO FLUIDS. PATIENT APPEATITE SMALL. LR DISCONTINUED AFTER CURRENT BAG FINISHED PER DR. COLES ORDERS. SALINE LOCKED AT THIS TIME. Q6 BLADDER SCANS. RIGHT POSTERIOR HIP PRECAUTIONS MAINTANED. RIGHT HIP DRESSING REMAINS C/D/I. TAKING PILLS WHOLE WITH APPLESAUCE. WILL CONTINUE TO MONITOR AND REPORT OFF.
--- NOTE | 2021-04-23 21:14 | NUR ---
ASSUMED CARE OF PATIENT AT APPROIMATELY 1909 FROM MALINDA Joyner RN. PATIENT ABLE TO STATE NAME. PATIENT SLOW TO RESPOND. PATIENT DENIES PAIN; EDUCATED ON S/P SURGERY RESTRICTIONS. PATIENT AFIB 110-120'S; OXYGEN SATURATION ABOVE 90% ON 2LPM VIA NC. DRESSING TO RIGHT HIP C/D/I. PIV S/L.
--- NOTE | 2021-04-24 00:01 | NUR ---
PATIENT AGITATED AT TIMES; BLADDER SCAN OF 320 AND PATIENT ANGRY POINTING AT TV SHOWING THE [employer] CHANNEL SHOUTING THE SCAR ON HIS RIGHT HIP IS SOMEONE ELSE'S BODY AND HE DEMANDS SECURITY; THEN STATES "WHEN I FIND THEM I AM GOING TO PUNCH EM IN THE FACE". PATIENT INCONTINENT OF URINE AFTER BLADDER SCAN AND VOIDED SMALL AMOUNT INTO URINAL; STATES HE WILL NOT ALLOW A STRAIGHT CATHETER.
--- NOTE | 2021-04-24 06:27 | NUR ---
PATIENT SLEPT ABOUT EIGHT HOURS LAST NIGHT; NO ACUTE CHANGES.
--- NOTE | 2021-04-24 10:49 | NUR ---
AM NOTE: PATIENT ALERT TO SELF AND AWARE HE IS IN HOSPITAL THIS AM. INTERMITTENT CONFUSION. PERRLA. DENIES NUMBNESS/TINGLING. ABLE TO MOVE ALL EXTREMITIES. RIGHT POSTERIOR HIP PRECAUTIONS IN PLACE. PHYSICAL THERAPY IN TO SEE PATIENT. UP TO EDGE OF BED. ON 2 L NASAL CANNULA SATING MID 90'S. LUNGS SOUNDING CLEAR/DIM. DENIES SOB. TELE SHOWING AFIB WITH HR 90-110'S. HR INCREASING TO 130-140 WITH ACTIVITY. DENIES CHEST PAIN/PRESSURE. BP STABLE. NO SIGNS OF EDEMA. DENIES ABDOMINAL PAIN/NAUSEA. ATTENDS IN PLACE. ABDOMEN SOFT, NONTENDER. CLEAR LIQUID DIET IN PLACE. TOLERATING WELL. Q6 BLADDER SCANS. RETAINING URINE BUT ABLE TO USE URINAL WITH HELP. CALL LIGHT IN REACH. SLEEPING AT THIS TIME, WILL CONTINUE TO MONITOR.
--- NOTE | 2021-04-24 16:43 | NUR ---
TRANSFER: NO ACUTE CHANGES. SEE PREVIOUS NOTE. PATIENT TRANSFERED TO SURGICAL 207 WITH ALL BELONGINGS. REPORTED OFF TO MARK RODGERS. TELE AND RESPIRATORY REMAIN UNCHANGED. USING URINAL WITH ASSISTANCE. Q6 BLADDER SCANS. VITAL SIGNS STABLE. CONFIRMED TRANSFER WITH TELE MONITOR.
--- NOTE | 2021-04-24 17:39 | NUR ---
1630 PT ARRIVED FROM PCU TO SURGICAL FLOOR ROOM 207. PT AOX2-3. HX DEMENTIA. VITALS TAKEN, HR AT 110'S-120'S. MILD HYPERTENSIVE. 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 PT DENIES CHEST PAIN AND SOB. HE IS ON 2L N/C SATURATING AT 95%, SATURATING ON 88% ON ROOM AIR. ABLE TO WIGGLE TOES AND MOVE ALL EXTREMITITES. PEDAL PULSES ARE STRONG. PT DENIES N/T. TOLERATING PO INTAKE. ON FULL LIQUID DIET. DENIES NAUSEA AND VOMITING. PT WEARS ATTENDS DUE TO INCONTINENT URINATING AND BM. POD2 R REINALDO HIP WITH AQUACEL DRESSING CDI. CALL LIGHT WITHIN REACH. WILL CONTINUE TO MONITOR PT.
--- NOTE | 2021-04-24 17:46 | NUR ---
0544: PROGRAM REVIEW DIRECTOR DOM CALLED STATING PT ON 140'S AT AFIB. ASSESSED PT, HE DENIES CHEST PAIN. APPEARS TO BE COMFORTABLE WATCHING TV AND EATING AT THIS TIME. WILL GIVE METOPOROL 5ML OF 1MG/ML PER EMR ORDER PER HR OVER 130. CALLED PROGRAM REVIEW DIRECTOR FOR THE PLAN. WILL CONTINUE TO MONITOR PT.
--- NOTE | 2021-04-24 18:08 | NUR ---
0605: Metoprolol 5mg given via IV. Called Polyera after administration, heart rate improved to 113. Pt appears comfortable in bed watching TV.
--- NOTE | 2021-04-24 19:35 | NUR ---
SHIFT SUMMARY PT TRANSFERED FROM PCU AT 1630. HEART RATE REMAIN ON 120'S AND HAD AN EPISODE OF 140'S WITH AFIB BBB PER [employer] SPECIALIST. MEDICATED PT WITH 5MG METOPROLOL IV. RECHECKED HR, IMPROVED TO 113 AFTER 5 MINS. PT DENIES CHEST PAIN AND SOB, BUT WOULD DESAT ON 88% ON ROOM AIR. 2L N/C AT THIS TIME SATURATING AT 92-95%. PT INCONTINENT ON URINATING AND BM. ATTENDS IN PLACED. HX DEMENTIA. PLEASANTLY CONFUSED. TOLERATING FULL LIQ DIET. DENIES NAUSEA AND VOMITING. CALL LIGHT WITHIN REACH. REPORT GIVEN TO ADELINE RODGERS.
[2021-04-25 05:58] LABS: Hematocrit 33.2 % (37.0-53.0); Hemoglobin 10.4 g/dL (13.5-17.5); Mean Corpuscular HGB 30.4 pg (26.0-34.0); Mean Corpuscular HGB Conc 31.3 g/dL (31.5-36.5); Mean Corpuscular Volume 97 fL (80-100); Mean Platelet Volume 11.2 fL (9.1-12.4); Platelet Count 119 K/mm3 (150-400); RDW Coefficient Variation 13.9 % (11.7-14.2); RDW Standard Deviation 49.2 fL (35.1-46.3); Red Blood Cell Count 3.42 M/mm3 (4.30-5.90); White Blood Cell Count 7.23 K/mm3 (4.00-11.30)
[2021-04-25 06:21] LABS: Anion Gap 2 mmol/L (6-16); Blood Urea Nitrogen 16 mg/dL (8-24); Bun/Creatinine Ratio 27.2 (12.0-20.0); CO2, Blood 35 mmol/L (21-32); Calcium, Blood 9.2 mg/dL (8.5-10.1); Chloride, Blood 105 mmol/L (98-108); Creatinine, Blood 0.59 mg/dL (0.60-1.20); Glomerular Filtration Rate >60 (60-); Glucose, Blood 92 mg/dL (70-99); Potassium, Blood 3.8 mmol/L (3.5-5.5); Sodium, Blood 142 mmol/L (136-145)
--- NOTE | 2021-04-25 06:23 | NUR ---
ALERT X'S 2, ABLE TO VERBALIZE NEEDS. COMPLAINED OF PAIN DURING REPOSITIONING, MEDICATED WITH TORADOL, EFFECTIVE RELIEF. VOIDING IN URINAL, RETAINING. STRAIGHT CATHED FOR 400ML AT 12AM, 0600 BLADDER SCANNED 183, VOIDED 400ML. TELE AFIB CONTROLLED. 02@1L, NO ACUTE DISTRESS NOTED, RESPIRATIONS EVEN AND UNLABORED, BILATERAL LUNG SOUNDS CLEAR/ DIM IN BASES. SAFETY MAINTAINED, CALL LOPEZ IN REACH.
--- NOTE | 2021-04-25 10:54 | NUR ---
1035 HEART RATE STARTING TO ELEVATED TO 120-142 ON PT'S CONT BIOX, CALLED TELE PT ON AFIB 130. 1038 VITALS TAKEN BP AT 129/67 HR AT 120-130. PT DENIES CHEST PAIN AND SOB. 1042 METOPROLOL 5MG ADMINISTERED VIA IV 1044 TELE CALLED STATING HR AT 110 1055 VITALS RECHECKED BP AT 117/62 AND HR BETWEEN 95-110. GOOD RODGERS (CHARGE NURSE) CALLED DR. GOMEZ AND NOTIFIED OF HR AND WILL HOLD THE TELE TO BE DC'D. WILL CONTINUE TO MONITOR PT.
--- NOTE | 2021-04-25 12:42 | NUR ---
1225 PT HR IS ELEVATED AGAIN, ON 120'S-140'S. CALLED DR. GOMEZ NOTIFIED OF THIS EPISODE. HE ADVISED TO GIVE ANOTHER METOPROLOL IV. WILL MONITOR PT AND RECHECK VITALS.
--- NOTE | 2021-04-25 13:55 | NUR ---
PT FEELS INDIGESTION/NAUSEA STATING " I ATE TOO FAST". HE VOMITED. CALLED DR GOMEZ TO REQUEST FOR MEDICATION. WILL MEDICATE PT SOON ORDERS ARE IN AND WILL CONTINUE TO MONITOR PATIENT.
--- NOTE | 2021-04-25 15:04 | NUR ---
TOTAL EMESIS OF 1250ML. BT PRESENT - HIGH SOUND TYMPANIC NOTED. CALLED DR. GOMEZ TO UPDATE. WILL GIVE REGLAN IV NOW. SWITCH FULL LIQ TO CLEAR LIQ DIET. ORDERS WAS PUT IN TO ADDED BY THE PROVIDER. WILL CONTINUE TO MONITOR PATIENT.
--- NOTE | 2021-04-25 15:16 | NUR ---
REGLAN ADMINISTERED VIA IV. PT IS CURRENTLY SLEEPING AT THIS TIME HR AT 101.
--- NOTE | 2021-04-25 16:59 | NUR ---
PT VOIDED IN URINAL (200ML). PT ALSO STATES NAUSEA AND ABD PAIN HAS IMPROVED. FEELING MORE COMFORTABLE RIGHT NOW. PT AOX3. HEART RATE AVERAGING TO 110(TEENS)-130 AT THIS TIME IN THE LAST 10 MINUTES. I WILL CONTINUE TO MONITOR PT.
--- NOTE | 2021-04-25 18:35 | NUR ---
ANOTHER EPISODE OF ELEVATED HR FROM 100(TEENS) TO 130'S FOR THE 20 MINUTES. MEDICATED WITH METOPROLOL 5MG/ML. HR HAS IMPROVED AFTER ADMINISTRATION. HR AT 100 TO 100(TEENS). PT COMFORTABLE WATCHING TV AT THIS TIME. NAUSEA HAS IMPROVED. NO VOMITING IN THE LAST HOUR.
[2021-04-26 04:06] LABS: Hemoglobin 10.8 g/dL (13.5-17.5); Mean Corpuscular HGB 30.5 pg (26.0-34.0); Mean Corpuscular HGB Conc 31.8 g/dL (31.5-36.5); Mean Corpuscular Volume 96 fL (80-100); Mean Platelet Volume 10.8 fL (9.1-12.4); Platelet Count 146 K/mm3 (150-400); RDW Coefficient Variation 13.5 % (11.7-14.2); RDW Standard Deviation 47.8 fL (35.1-46.3); Red Blood Cell Count 3.54 M/mm3 (4.30-5.90); White Blood Cell Count 8.86 K/mm3 (4.00-11.30)
--- NOTE | 2021-04-26 05:50 | NUR ---
PT IN BED AAOX2. DISTRIBUTION LEAD REPORTS AFIB 108. TELE MONITOR IN PLACE. O2 AT 1L VIA NC. ELEVATED BP MONITORING. PT CONFUSED REMOVING NC FREQUENTLY. NAUSEA AND VOMITING ON SHIFT MEDICATED PER EMAR. SOFT STOOL SMALL X2. DRESSING ON RIGHT HIP INTACT. CALL MADE TO DOCTOR FOR THE N/V. PLACE ON NPO. MEDICATED PER EMAR. XR OF ABDOMEN DONE. WILL CONTINUE TO MONITOR AND MAINTAIN ALL PRECAUTIONS. BED ALARM ON. IV PATENT LR INFUSING, COMPLETED.
--- NOTE | 2021-04-26 08:49 | NUR ---
PATIENT RESTING AT THIS TIME, IS ALERT TO PERSON, SITUATION. PLEASANT AFFECT AT THIS TIME, TALKING OF HIS [employer]. DENIES NAUSEA, NOTED SOME MILD BURPING. REGLAN GIVEN AT THIS TIME. TORADOL GIVEN FOR MILD HIP PAIN. BLOOD PRESSURE ELEVATED THIS A.M. 190/103, ZESTRIL GIVEN EARLY AND AT THIS TIME BP DOWN TO 155/79, HR 113. RESP. UNLABORED, OXYGEN ON AT 1/5L PER N/C FOR SATS 95%-100% . ABDOMEN WITH BOWEL TONES HYPERACTIVE, FIRM BUT NON DISTENDED. PATIENT VOID IN URINAL 280CC CLEAR PAULETTE URINE THIS A.M.
--- NOTE | 2021-04-26 18:19 | NUR ---
ASSUMED CARE OF PATIENT AT 1730 FROM DAY RN. TRANSFERRED PATIENT TO RECLINER, CHANGED ATTENDS, CHANGED AQUACEL, PROVIDED WITH DINNER TRAY. OXYGEN DESATS WITH EXERTION. 3L NC TO KEEP SATS ABOVE 90%. CHAIR ALARM ON.
[2021-04-27 04:48] LABS: BASOPHILS ABSOLUTE AUTO 0.07 K/mm3 (0.00-0.23); BASOPHILS PERCENT AUTO 1 % (0-2); EOSINOPHILS PERCENT AUTO 6 % (0-6); Hematocrit 32.7 % (37.0-53.0); Hemoglobin 10.2 g/dL (13.5-17.5); IMMATURE GRAN ABSOLUTE AUTO 0.03 K/mm3 (0.00-0.10); IMMATURE GRAN PERCENT AUTO 0 % (0-1); LYMPHOCYTES ABSOLUTE AUTO 2.03 K/mm3 (0.84-5.20); LYMPHOCYTES PERCENT AUTO 26 % (21-46); MONOCYTES ABSOLUTE AUTO 0.77 K/mm3 (0.16-1.47); MONOCYTES PERCENT AUTO 10 % (4-13); Mean Corpuscular HGB 30.3 pg (26.0-34.0); Mean Corpuscular HGB Conc 31.2 g/dL (31.5-36.5); Mean Corpuscular Volume 97 fL (80-100); Mean Platelet Volume 10.8 fL (9.1-12.4); NEUTROPHILS ABSOLUTE AUTO 4.39 K/mm3 (1.96-9.15); NEUTROPHILS PERCENT AUTO 56 % (41-73); Platelet Count 159 K/mm3 (150-400); RDW Coefficient Variation 13.6 % (11.7-14.2); RDW Standard Deviation 48.4 fL (35.1-46.3); Red Blood Cell Count 3.37 M/mm3 (4.30-5.90); White Blood Cell Count 7.79 K/mm3 (4.00-11.30)
--- NOTE | 2021-04-27 05:10 | NUR ---
SHIFT SUMMARY: PT UP IN CHAIR AA0X2. VS STABLE WITH BP ELEVATED MONITORING. O2 AT 1L VIA NC. FINANCIAL RESERVE CLERK IN PLACE. IV SALINE LOCK IN PLACE PATENT. DRESSING ON RIGHT HIP C/D/I. PT STANDS TO VOID IN URINAL WITH 2 PERSON ASSIT. TOLERATED ALL MEDICATIONS WELL. NO ADVERSE REACTIONS NOTED. MONITORING AND MAINTAINING ALL PRECAUTION.
--- NOTE | 2021-04-27 13:14 | NUR ---
Reviewed plan of care with Primary RN Sandra. Pt improving and diet advanced. No nausea reported at this time. Pt experiences sundowners and is more confused in the evening. Sandra reports Pt may need higher level of care as assisted living may no longer be appropriate. Pt requires assistance with transfers and ambulation. Sandra reports no other concerns at this time. Attempted to call Pt's decision maker Ed and left message with request for a return phone call. Plan to discuss completing POLST with decision maker Ed.
--- NOTE | 2021-04-27 13:25 | NUR ---
PT. UP TO COMMODE WITH GAIT BELT AND TWO ASSIST FROM CHAIR, USING FWW. UNSTEADY AND NEEDING ASSIST.FOLLOWS COMMANDS.PATIENT HAD WATERY STOOL THIS A.M. AND AGAIN AT THIS TIME. STOOL SAMPLE SENT TO LAB PER DR. BURDICK. PATIENT HAD FULL LIQUID DIET FOR LUNCH. TOOK ALMOST ALL OF IT (85%). DENIES NAUSEA, DENIES ABDOMINAL PAIN. DID HAVE VERY LARGE BURP AND MUCH FLATUS AGAIN ON COMMODE.
--- NOTE | 2021-04-27 15:02 | NUR ---
Received return phone call from Pt's friend/decision maker Ed. Provided update and discussed considering completing a POLST. Eductated on life sustaining treatments includind risk factors and implications of CPR. Assisted Ed with completing POLST over the phone. Pt's wishes on POLST is DNR and is still agreeable with coming to the hospital to receive Limited Treatment. PC RN Geneva witnessed and comfirmed via speaker phone. Plan: Obtain copy of POLST upon MD signature and deliver to medical records. Palliative Care will remain available.
--- NOTE | 2021-04-27 16:17 | NUR ---
Spiritual care visit conducted. Patient is known to this screen writer. Pt immediately tells me that he is frustrated that he can't get his things and that he has been unable to call his friend and medical decision maker, Ed. I attempt to call Ed with the rm phone and pt immediately tells me that Ed is at work for another hour or so. I then explain to patient how to turn on the phone and the importance of dialing 9 first before the phone number. Patient acts like he has never heard this before but I find that highly unlikely because Ed's name and phone number are written in large print on the ink board. Patient then talks about how he wishes he had his Bible. I tell him that I will bring him one. I normalize patient's frustrations and provide spiritual encouragement, anxiety containment and prayer. Patient responds well and shows signs of being more calm and increased peace. I will continue to remain available to patient. I bring him a Bible a few minutes after the visit and pt voices appreciation.
[2021-04-28 06:17] LABS: BASOPHILS ABSOLUTE AUTO 0.05 K/mm3 (0.00-0.23); BASOPHILS PERCENT AUTO 1 % (0-2); EOSINOPHILS ABSOLUTE AUTO 0.56 K/mm3 (0.00-0.68); EOSINOPHILS PERCENT AUTO 7 % (0-6); Hematocrit 33.8 % (37.0-53.0); Hemoglobin 10.6 g/dL (13.5-17.5); IMMATURE GRAN ABSOLUTE AUTO 0.05 K/mm3 (0.00-0.10); IMMATURE GRAN PERCENT AUTO 1 % (0-1); LYMPHOCYTES ABSOLUTE AUTO 2.03 K/mm3 (0.84-5.20); LYMPHOCYTES PERCENT AUTO 26 % (21-46); MONOCYTES ABSOLUTE AUTO 0.76 K/mm3 (0.16-1.47); MONOCYTES PERCENT AUTO 10 % (4-13); Mean Corpuscular HGB 30.5 pg (26.0-34.0); Mean Corpuscular HGB Conc 31.4 g/dL (31.5-36.5); Mean Corpuscular Volume 97 fL (80-100); NEUTROPHILS PERCENT AUTO 57 % (41-73); Platelet Count 177 K/mm3 (150-400); RDW Coefficient Variation 13.7 % (11.7-14.2); RDW Standard Deviation 48.2 fL (35.1-46.3); Red Blood Cell Count 3.48 M/mm3 (4.30-5.90); White Blood Cell Count 7.95 K/mm3 (4.00-11.30)
--- NOTE | 2021-04-28 06:18 | NUR ---
SHIFT REPORT: MEDICATED FOR PAIN MANAGEMENT WITH FENTANYL AND ROXICODONE INTERMITTENTLY, EFFECTIVE RELIEF, SLEPT WELL THROUGH NIGHT. MALIHA WRAP INTACT TO LEFT THIGH, WOUND VAC ON AND WORKING PROPERLY. SAFETY MAINTAINED, CALL LOPEZ IN REACH.
--- NOTE | 2021-04-28 06:23 | NUR ---
SHIFT REPORT: ALERT, REFUSED TO SLEEP IN BED. SLEPT IN RECLINER THROUGH NIGHT. DENIED PAIN OR DISCOMFORT. O2@1L VIA N/C, RESPIRATIONS EVEN AND UNLABORED. TELE AFIB. SANGUINOUS DRAINAGE TO AQUACEL DRESSING TO RIGHT HIP. 1 ASSIST FOR TRANSFERS WITH GAIT BELT AND WALKER. RESTING PEACEFULLY, SAFETY MAINTAINED, CALL LOPEZ IN REACH
--- NOTE | 2021-04-28 17:19 | NUR ---
SHIFT SUMMARY R REINALDO HIP. AQUACEL CHANGED TODAY. MODERATE ABOUT SS DRAINAGE, CURRENTLY CDI. PT MOVING WELL WITH THERAPY ABLE TO TRANSFER WITH 1 ASSIST, FWW AND GB. PT CALLS APPROPRIATLY. HE IS AWARE WHEN HE IS VOIDING BUT HAS TROUBLE WITH URINAL. TOLERATING PO WELL, FEEDING SELF. [id number] DURING SHIFT. CONFUSED ON DATE BUT REORIENTED QUICKLY.
[2021-04-29 04:13] LABS: Hematocrit 32.5 % (37.0-53.0)
--- NOTE | 2021-04-29 05:42 | NUR ---
SHIFT SUMMARY: SLEPT WELL THROUGH NIGHT. NO ACUTE DISTRESS NOTED, DENIES PAIN OR SOB. O2@1L VIA N/C, SATURATION 100%, DESATS TO LOW 80'S WHEN OFF OXYGEN. ABLE TO AMBULATE IN ROOM WITH 1 ASSIST WITH WALKER AND GAIT BELT. SMALL AMOUNT OF DRAINAGE TO AQUACEL DRESSING TO RIGHT HIP. TELE: AFIB CONTROLLED. SAFETY MAINTAINED, CALL LOPEZ IN REACH.
--- NOTE | 2021-04-29 18:05 | NUR ---
SHIFT SUMMARY PT ORIENTED X3, APPEARS TO BE CLEARING UP. REORIENTS QUICKLY. ABLE TO AMBULATE TO BATHROOM WHEN HE NEEDS, PT/OT WORKED WITH PATIENT. PLAN IS TO DISCHARGE BACK TO [place] TOMORROW AT 1130. PT REMAINS ON 1L NASAL CANULA SATS 100%. DENIES SOB. REPORTS FEELING AN INCREASED STRENGTH TODAY.
--- NOTE | 2021-04-30 04:33 | NUR ---
SHIFT SUMMARY LAURE PARTICIPATED IN PT TODAY ON DAY SHIFT. THIS EVENING, HE AMBULATED WITH A WALKER AND TWO PERSON ASSIST TO THE BATHROOM. HE WAS A BIT MORE PAINFUL THIS EVENING THAN DURING THE DAY, BUT WAS COMFORTABLE WHEN REPOSITIONED TO THE BED RATHER THAN THE RECLINER. GIVEN PRN HYDROCODONE FOR 6/10 PAIN, SEE EMAR. LUNGS COARSE, HX OF COPD. ON 1LPM OXYGEN VIA NASAL CANULA, MAINTAINING SATS ABOVE 98%. TELEMETRY REPORTS AFIB IN THE 90'S, WILL BECOME TACHYCARDIC UPON EXERTION, BUT DOES RESOLVE QUICKLY. VSS. LAURE IS A&0 X 3, NEEDED A REMINDER FROM STAFF FOR HIM TO CALL US WHEN HE NEEDS TO GET UP. LAURE IS VOIDING WELL, AND HAD A BM THIS NOC SHIFT. WILL CONTINUE TO MONITOR. BED ALARM IN PLACE.
--- NOTE | 2021-04-30 10:44 | NUR ---
Patient is sitting on a chair and alert. Patient tells me about his love for peanut butter and nora crackers, his friend Ed and God (not neccessarily in that order). He talks about his concerns about the future and the long haul of recovery ahead. Pt is more confused and repeats himself more often at every visit. I provide therapeutic listening, companionship, anxiety containment and prayer. Laithn responds well and shows signs of being encouraged in his jessie.
--- NOTE | 2021-04-30 11:14 | NUR ---
Received referral from nurse before and after school daycare worker (Luc Whyte) on 04/29/2021. Patient is to discharge today- 04/30/2021 with orders for home health and elected [facility]. Contacted patient's care facility- Leeanne Gonzalez (Nicki) to further discuss the above. Patient's care facility is agreeable to the above. Discussed homebound status definition with patient's care facility. Patient's care facility verbalized understanding. Discussed what home health is vs what it is not (in home caregivers/housekeeping). Patient's care facility verbalized understanding. Discussed the next steps in the process of an initial assessment to determine frequency of visits. Again patient's care facility verbalized understanding. Offered a chance for patient's care facility to ask questions regarding the above of which there were none. Gathered all supporting documentation for referral (face sheet, face to face, med list, H&P, and most recent PT assessment) and sent to [facility] for review. No further interventions required. Roxann Berrios Referral Liaison
--- NOTE | 2021-04-30 11:28 | NUR ---
1123 DISCHARGED VIA WHEELCHAIR TO TRANSPORT TO [facility]. FIDE AT [place] ASKIN FOR ORDER FOR HOME OXYGEN WHICH PATIENT USES AT NIGHT. SPOKE WITH DR QUIROZ REGARDING [facility] REQUEST FOR OXYGEN
--- NOTE | 2021-04-30 11:28 | NUR ---
0940 REPORT PHONED TO FIDE AT [facility].
== END 2021-04-30 11:23 | disposition home health service (06) | DRG 521 ==
LOC: ER 07:57 → SURS 12:06 → MEDS 12:06 → SURS 14:08 → PCU 04-22 23:17 → SURS 04-24 16:30
PROVIDERS: Family Medicine; Hospitalist; Nurse Practitioner Acute Care; Orthopaedic Surgery; Student in an Organized Health Care Education/Training Program; ADMIT Internal Medicine
PROC: 8E0ZXY6 Isolation (ICD-10-PCS; 2021-04-19)
PROC: 0SRR0JZ Replacement of Right Hip Joint, Femoral Surface with Synthetic Substitute, Open Approach (ICD-10-PCS; principal; 2021-04-22 12:15)
DX: S72.111A Displaced fracture of greater trochanter of right femur, initial encounter for closed fracture (principal); U07.1 COVID-19; J96.01 Acute respiratory failure with hypoxia; I48.20 Chronic atrial fibrillation, unspecified; K31.1 Adult hypertrophic pyloric stenosis; Z66 Do not resuscitate; K57.90 Diverticulosis of intestine, part unspecified, without perforation or abscess without bleeding; I16.0 Hypertensive urgency; J44.9 Chronic obstructive pulmonary disease, unspecified; I10 Essential (primary) hypertension; G30.9 Alzheimer's disease, unspecified; F02.80 Dementia in other diseases classified elsewhere, unspecified severity, without behavioral disturbance, psychotic disturbance, mood disturbance, and anxiety; Z88.8 Allergy status to other drugs, medicaments and biological substances; Z79.899 Other long term (current) drug therapy; Z79.01 Long term (current) use of anticoagulants; Z86.73 Personal history of transient ischemic attack (TIA), and cerebral infarction without residual deficits; Z87.891 Personal history of nicotine dependence; W18.30XA Fall on same level, unspecified, initial encounter
CPT/HCPCS: 0241U; 36415; 70450; 71045; 72125; 72170; 73502; 74018; 74177; 80048; 80053; 82947; 85014; 85018; 85025; 85027; 87338; 93005; 93010; 94640; 94664; 94760; 94762; 96374; 97110; 97116; 97116-CQ; 97162; 97166; 97530; 97535; 99285-25; A9270; C1776; C9113; J0171; J0360; J0690; J0735; J1100; J1644; J1885; J2060; J2250; J2370; J2405; J2704; J2765; J2795; J3010; J3480; J7030; J7120; Q9967

== ENCOUNTER 2021-06-18 22:12 | Inpatient (IN) | payer OTHER ==
[~2021-06-18] VITALS: Ht 180.3 cm; Wt 98.4 kg
[2021-06-18 22:51] LABS: BASOPHILS ABSOLUTE AUTO 0.07 K/mm3 (0.00-0.23); BASOPHILS PERCENT AUTO 0 % (0-2); EOSINOPHILS ABSOLUTE AUTO 0.11 K/mm3 (0.00-0.68); EOSINOPHILS PERCENT AUTO 1 % (0-6); Hematocrit 43.9 % (37.0-53.0); Hemoglobin 13.7 g/dL (13.5-17.5); IMMATURE GRAN ABSOLUTE AUTO 0.07 K/mm3 (0.00-0.10); IMMATURE GRAN PERCENT AUTO 0 % (0-1); LYMPHOCYTES ABSOLUTE AUTO 2.72 K/mm3 (0.84-5.20); LYMPHOCYTES PERCENT AUTO 17 % (21-46); MONOCYTES ABSOLUTE AUTO 1.53 K/mm3 (0.16-1.47); MONOCYTES PERCENT AUTO 9 % (4-13); Mean Corpuscular HGB 30.1 pg (26.0-34.0); Mean Corpuscular HGB Conc 31.2 g/dL (31.5-36.5); Mean Corpuscular Volume 97 fL (80-100); Mean Platelet Volume 10.6 fL (9.1-12.4); NEUTROPHILS ABSOLUTE AUTO 11.81 K/mm3 (1.96-9.15); NEUTROPHILS PERCENT AUTO 72 % (41-73); Platelet Count 189 K/mm3 (150-400); RDW Coefficient Variation 13.7 % (11.7-14.2); RDW Standard Deviation 48.8 fL (35.1-46.3); Red Blood Cell Count 4.55 M/mm3 (4.30-5.90); White Blood Cell Count 16.31 K/mm3 (4.00-11.30)
[2021-06-18 23:12] LABS: Alanine Aminotransfer (ALT/SGP 17 U/L (12-78); Albumin, Blood 3.4 g/dL (3.4-5.0); Albumin/Globulin Ratio 0.7 (0.8-1.8); Alk Phos 150 U/L (50-136); Anion Gap 6 mmol/L (6-16); Aspartate Aminotrans (AST/SGOT 18 U/L (12-37); Bilirubin, Total 0.8 mg/dL (0.1-1.0); Blood Urea Nitrogen 16 mg/dL (8-24); Bun/Creatinine Ratio 20.4 (12.0-20.0); CO2, Blood 30 mmol/L (21-32); Calcium, Blood 10.8 mg/dL (8.5-10.1); Chloride, Blood 99 mmol/L (98-108); Creatinine, Blood 0.78 mg/dL (0.60-1.20); Globulin, Blood 5.1 g/dL (2.2-4.0); Glomerular Filtration Rate >60 (60-); Glucose, Blood 120 mg/dL (70-99); Potassium, Blood 4.5 mmol/L (3.5-5.5); Sodium, Blood 135 mmol/L (136-145); Total Protein, Blood 8.5 g/dL (6.4-8.2)
[2021-06-18 23:58] LABS: Influenza A, PCR NEGATIVE (NEGATIVE); Influenza B, PCR NEGATIVE (NEGATIVE); Resp Syncytial Virus, PCR NEGATIVE (NEGATIVE); SARS-Cov-2 (COVID-19) PCR, MMC NEGATIVE (NEGATIVE)
--- NOTE | 2021-06-19 03:20 | NUR ---
Pt was admitted to PCU. VSS on 1-2L while sleeping. Pt was able to swallow PO abx with water without difficulty. IV abx and bolus finished and pt was saline locked. Pt pretty lethargic and sleeping in between cares. Oriented 1-2, to self and place on and off. Skin assessment on admission: rednes under panus and folds with yeast smell. Pt was given bed bath and pictures of skin were taken. A few open wounds were found in groin area. Bottom was reddened but blanchable. BLE mason. Q2hr turns due to limited mobility in bed.
[2021-06-19 03:59] LABS: BASOPHILS ABSOLUTE AUTO 0.06 K/mm3 (0.00-0.23); BASOPHILS PERCENT AUTO 0 % (0-2); EOSINOPHILS PERCENT AUTO 1 % (0-6); Hematocrit 39.5 % (37.0-53.0); Hemoglobin 12.2 g/dL (13.5-17.5); IMMATURE GRAN ABSOLUTE AUTO 0.06 K/mm3 (0.00-0.10); IMMATURE GRAN PERCENT AUTO 0 % (0-1); LYMPHOCYTES ABSOLUTE AUTO 1.78 K/mm3 (0.84-5.20); LYMPHOCYTES PERCENT AUTO 13 % (21-46); MONOCYTES ABSOLUTE AUTO 1.44 K/mm3 (0.16-1.47); MONOCYTES PERCENT AUTO 11 % (4-13); Mean Corpuscular HGB 29.8 pg (26.0-34.0); Mean Corpuscular HGB Conc 30.9 g/dL (31.5-36.5); Mean Corpuscular Volume 97 fL (80-100); Mean Platelet Volume 10.5 fL (9.1-12.4); NEUTROPHILS ABSOLUTE AUTO 10.16 K/mm3 (1.96-9.15); NEUTROPHILS PERCENT AUTO 75 % (41-73); Platelet Count 168 K/mm3 (150-400); RDW Coefficient Variation 13.7 % (11.7-14.2); RDW Standard Deviation 48.9 fL (35.1-46.3); Red Blood Cell Count 4.09 M/mm3 (4.30-5.90)
[2021-06-19 04:22] LABS: Anion Gap 4 mmol/L (6-16); Blood Urea Nitrogen 16 mg/dL (8-24); CO2, Blood 32 mmol/L (21-32); Calcium, Blood 9.9 mg/dL (8.5-10.1); Chloride, Blood 101 mmol/L (98-108); Creatinine, Blood 0.84 mg/dL (0.60-1.20); Glomerular Filtration Rate >60 (60-); Glucose, Blood 120 mg/dL (70-99); Potassium, Blood 3.8 mmol/L (3.5-5.5); Sodium, Blood 137 mmol/L (136-145)
--- NOTE | 2021-06-19 05:06 | NUR ---
FRAMEMAN NOTE: Admit from ED around 0100. Pt is lethargic, but does wake up easily when you talk with pt. Oriented 1-[address] on and off. VSS on 1-2L oxygen (pt uses oxygen at night at [facility]). IV and PO antibiotics given per orders. Pt swallowed PO med whole with thin liquid well. 1L of fluids finished and then pt was saline locked. Tele: afib (chronic for pt and takes metoprolol and eliquis). Pt hasn't been out of bed, rolls pretty well 1-2 person assist. Skin: Redness and a few open wounds in panus under folds, pictures taken and bed bath completed. Bottom is red, but blanchable. BLE mason. Sputum cup in room awaiting a sample.
--- NOTE | 2021-06-19 18:21 | NUR ---
ASSUMED CARE OF PT AT 0700. PT APPEARED TO BE RESTING COMFORTABLY T/O THE MORNING. ABLE TO TAKE MEDICATIONS WHOLE W WATER AND EAT BREAKFAST W/O DIFFICULITY, NO COUGHING NOTED. PT SLEEPING T/O THE AFTERNOON, TYLENOL GIVEN FOR PAIN/FEVER. TEMP RECHECKED AND RESOLVED. NO ACUTE EVENTS T/O THE DAY. CALL LIGHT IN REACH. WILL CONTINUE TO MONITOR AND GIVE REPORT TO ONCOMING SHIFT RN.
--- NOTE | 2021-06-19 20:24 | NUR ---
GRAM STAIN COCCI IN PAIR, POSITIVE CALLED IN AND REPORTED TO MANAGER PIPELINE BY LAB.
[2021-06-20 03:57] LABS: BASOPHILS ABSOLUTE AUTO 0.01 K/mm3 (0.00-0.23); BASOPHILS PERCENT AUTO 0 % (0-2); EOSINOPHILS PERCENT AUTO 0 % (0-6); Hematocrit 39.2 % (37.0-53.0); Hemoglobin 12.4 g/dL (13.5-17.5); IMMATURE GRAN ABSOLUTE AUTO 0.02 K/mm3 (0.00-0.10); IMMATURE GRAN PERCENT AUTO 0 % (0-1); LYMPHOCYTES ABSOLUTE AUTO 0.69 K/mm3 (0.84-5.20); LYMPHOCYTES PERCENT AUTO 11 % (21-46); MONOCYTES PERCENT AUTO 2 % (4-13); Mean Corpuscular HGB Conc 31.6 g/dL (31.5-36.5); Mean Corpuscular Volume 95 fL (80-100); Mean Platelet Volume 10.5 fL (9.1-12.4); NEUTROPHILS ABSOLUTE AUTO 5.73 K/mm3 (1.96-9.15); NEUTROPHILS PERCENT AUTO 88 % (41-73); Platelet Count 168 K/mm3 (150-400); RDW Coefficient Variation 13.3 % (11.7-14.2); RDW Standard Deviation 46.6 fL (35.1-46.3); Red Blood Cell Count 4.13 M/mm3 (4.30-5.90); White Blood Cell Count 6.55 K/mm3 (4.00-11.30)
[2021-06-20 04:16] LABS: Anion Gap 4 mmol/L (6-16); Blood Urea Nitrogen 19 mg/dL (8-24); Bun/Creatinine Ratio 30.7 (12.0-20.0); CO2, Blood 31 mmol/L (21-32); Calcium, Blood 10.4 mg/dL (8.5-10.1); Chloride, Blood 103 mmol/L (98-108); Creatinine, Blood 0.62 mg/dL (0.60-1.20); Glomerular Filtration Rate >60 (60-); Glucose, Blood 215 mg/dL (70-99); Potassium, Blood 4.1 mmol/L (3.5-5.5); Sodium, Blood 138 mmol/L (136-145)
--- NOTE | 2021-06-20 05:51 | NUR ---
SHIFT SUMMARY PT ALERT AND ORIENTED WITH SOME CONFUSION NOTED WHEN WAKING UP WANTING TO GET OUT OF BED. BED ALARM ACTIVE. THERE HAVE BEEN NO ACUTE CHANGES. VITALS ARE STBALE AND HAS BEEN ON 1L 02 WITH SATS ABOVE 90%. PT REPORTS SLIGHT CHEST PAIN WHEN COUGHING BUT NO SOB. PT REPORTS HAVING RIGHT HIP AND LEG PAIN BUT REFUSING PAIN MEDICATION. PT HAS BEEN INCONT OF URINE AND STOOL T/O THE NIGHT. STOOL IS OF LIQUID CONSISTENCY. CALL LIGHT IS WITHIN REACH AND USES CALL LIGHT APPROPRIETLY. PT IS ABLE TO COMMUNICATE NEEDS. CALL LIGHT IS WITHIN REACH.
--- NOTE | 2021-06-20 17:25 | NUR ---
SHIFT SUMMARY; ASSUMED CARE AT 0700. LETHARGIC IN AM BUT WAKES TO VERBAL STIMULI. 02 VIA NC 2L. LS CLEAR THROUGHOUT. WAKES MID MORNING FOR BREAKFAST. A/A/0X3 UNTIL LATE AFTERNOON WHEN BECOMES INTERMITANTLY CONFUSED WITH POSSIBLE SUN DOWNERS. CURRENTLY LIVES IN [facility]ARE AT [facility]. AMBULATES WITH 1 PERSON ASSIST WITH FRONT WHEEL WALKER. SITS IN RECLINER MOST OF AFTERNOON, USES URINAL WITH ASSISTANCE. COMPLETE BED BATH TODAY. POSSIBLE DISCHARGE TOMORROW. NO ACUTE MEDICAL CHANGES DURING SHIFT. WILL CONTINUE TO MONITOR AND TREAT UNTIL CHANGE OF SHIFT.
[2021-06-21 03:57] LABS: Hematocrit 38.6 % (37.0-53.0); Hemoglobin 12.5 g/dL (13.5-17.5)
[2021-06-21 04:25] LABS: Anion Gap 6 mmol/L (6-16); Blood Urea Nitrogen 28 mg/dL (8-24); Bun/Creatinine Ratio 47.7 (12.0-20.0); CO2, Blood 30 mmol/L (21-32); Calcium, Blood 10.7 mg/dL (8.5-10.1); Chloride, Blood 100 mmol/L (98-108); Creatinine, Blood 0.59 mg/dL (0.60-1.20); Glomerular Filtration Rate >60 (60-); Glucose, Blood 178 mg/dL (70-99); Potassium, Blood 3.6 mmol/L (3.5-5.5); Sodium, Blood 136 mmol/L (136-145)
--- NOTE | 2021-06-21 05:10 | NUR ---
SHIFT SUMMARY PT HAS BEEN CONFUSED AT TIMES. HAS BEEN ORIENTED TO PLACE AT TIMES T/O THE NIGHT. BP ELEVATED IN BEGINING OF SHIFT. PT IS ON 2L NC WITH SATS ABOVE 90%. THERE HAVE BEEN NO ACUTE CHANGES T/O TH NIGHT. PT DENIES CHEST PAIN OR SOB. PT HAS BEEN ABLE TO USE URINAL AND IS HAS BEEN INCONT OF STOOL ONCE AND ONCE WAS ABLE TO USE BSC. BED ALARM IS ACTIVE AND CALL LIGHT IS WITHIN REACH.
--- NOTE | 2021-06-21 11:14 | NUR ---
Patient is sitting on a chair and alert. Patient is known to this health technical writer from previous hospital stays. Patient remembers this health technical writer but is completely off on times and dates and even location (one moment he knows he is in the hospital other times at [address] but can't come up with that name from time to time as well). Patient has very strong connection to his Confucianist jessie and is easily encouraged by conversation centered around his jessie. He loves to tell about his spiritual journey and the landmark seasons of his life where God seemed very present. I reinforce helpful attitudes and practices and provide therpaeutic listening, celebration of his spiritual life and prayer. Patient responds well and shows signs of being uplifted in his jessie. I will continue to remain available to patient and family.
--- NOTE | 2021-06-21 14:01 | NUR ---
NO SIGNIFICANT CHANGES WITH PATIENT. HE IS A SBA WITH FWW AND GAIT BELT. HE IS TOLERATING PO INTAKE AND IS VOIDING. PATIENT IS HAVING FREQUENT SMALL STOOL PASSINGS. PATIENT HAS PAIN ON THE RIGHT HIP BUT HAS A LIDOCAINE PATCH THAT MANAGES IT. CHAIR ALARM IS IN PLACE. PATIENT IS SITTING UP IN CHAIR WITH CALL LIGHT IN REACH. HE IS CURRENTLY READING PT NOTES FROM EARLIER. THE NEXT PRN NURSE WILL BE TAKING OVER SHORTLY.
--- NOTE | 2021-06-21 14:57 | NUR ---
ASSUMPTION OF CARE HANDOFF REPORT RECEIVED FROM ORIANA Marques RN.
--- NOTE | 2021-06-21 18:31 | NUR ---
SHIFT SUMMARY PT HAS BEEN RESTING IN CHAIR SINCE ASSUMPTION OF CARE. PT IS CONFUSED AND IS OCCASIONALLY REORIENTABLE. PT PULLED IV AND WHEN ASKED WHY THEY STATED "GOD TOLD ME TO." PT HAS, UP TO THIS POINT, BEEN COOPERATIVE WITH CARES AND PLEASANT. PT IS BECOMING INCREASINGLY AGITATED AND PARANOID. T 98.1 F, P 94, RR 20, BP 164/88, SPO2 94 ON 1 L NC.
--- NOTE | 2021-06-21 19:13 | NUR ---
ASSUMED CARE PT IS AGITATED. PT BELIEVES HE IS IN THE [place]ICE STATION AND WAS ARRESTED. HAS ASKED FOR CLARIFICATION ON WHY HE IS HERE. PT DEMANDS TO TALK TO ED, WHICH IN PREVIOUS CONVERSATIONS ED IS HIS BOOK KEEPER AND WAS ON VACATION. THIS EVENING PT STS THAT HE TALKED TO ED TODAY. PT IS SITTING IN CHAIR WITH TAB ALARM IN PLACE DUE TO FALL RISK. CALL LIGHT IS IN HAND.
--- NOTE | 2021-06-21 20:54 | NUR ---
PT TRANSFERING TO MEDICAL ROOM 349 WITH ALL BELONGINGS VIA WHEELCHAIR. PT HAS BEEN AGITATED AND PARANOID. SEE ASSUMED CARE NOTE. DURING DAY AND THIS EVENING. PT REMOVED NAME AND DNR ARM BANDS AND REFUSES TO WEAR THEM. PT PULLED OUT IV DURING DAY. PT REFUSED TO TAKE MEDICATION THAT HE DID NOT RECOGNIZE. PT REQUIRING CONSTANT REORIENTATION.
--- NOTE | 2021-06-21 23:09 | NUR ---
TRANSFER *LATE ENTRY* PT TRANSFER TO 349 FROM PCU 1. RECIEVED REPORT. AGREE WITH PREVIOUS NURSE ASSESSMENT. ORIENTED TO RM & CALL LIGHT. PT ASKS WHY HE'S NOT IN HIS RM, INFORMED PT THIS WAS HIS NEW RM. PT ANXIOUS ABOUT BEING IN NEW RM, HOWEVER COMFORTED WHEN I TOLD HIM I TOOK CARE OF HIM BEFORE. BP HAS TRENDED DOWN SINCE RECIEVING SCHEDULED BP MEDS IN PCU. AOX2-SELF, PLACE. FORGETFUL SITUATION, DATE, HOWEVER READS WHITE BOARD & TELLS ME HE CHEATED TO TELL ME THE DATE. SNACK GIVEN, CALL LIGHT & BED ALARM IN PLACE.
--- NOTE | 2021-06-22 05:23 | NUR ---
SHIFT SUMMARY AOX2-SELF, PLACE. FORGETFUL SITUATION & DATE. CONFUSED. IMPULSIVE. VITALS STABLE SINCE TRANSFER FROM PCU. SPO2 >90% ON RA. E/U RESP. LS DIM c SCATTERED EXP WHEEZES. CAN BECOME IRRITATED & AGITATED c STAFF WHEN TRYING TO HELP c CARE & SAYS "LEAVE ME ALONE, LET ME DO IT." PT 2 PER ASSIST c FWW & GB TO RESTROOM THIS AM, UNSTEADY GAIT-KNEES TRIED TO BUCKLE 2X. PT STATES HE WANTS TO GO BACK TO [address] TODAY, WILL INFORM ONCOMING NURSE. CALL LIGHT & BED ALARM IN PLACE. WILL MONITOR.
[2021-06-22 10:18] LABS: BASOPHILS PERCENT AUTO 0 % (0-2); EOSINOPHILS PERCENT AUTO 0 % (0-6); Hematocrit 45.2 % (37.0-53.0); Hemoglobin 13.9 g/dL (13.5-17.5); IMMATURE GRAN ABSOLUTE AUTO 0.05 K/mm3 (0.00-0.10); IMMATURE GRAN PERCENT AUTO 1 % (0-1); LYMPHOCYTES ABSOLUTE AUTO 0.53 K/mm3 (0.84-5.20); LYMPHOCYTES PERCENT AUTO 7 % (21-46); MONOCYTES ABSOLUTE AUTO 0.34 K/mm3 (0.16-1.47); MONOCYTES PERCENT AUTO 5 % (4-13); Mean Corpuscular HGB 29.4 pg (26.0-34.0); Mean Corpuscular HGB Conc 30.8 g/dL (31.5-36.5); Mean Corpuscular Volume 96 fL (80-100); Mean Platelet Volume 10.6 fL (9.1-12.4); NEUTROPHILS ABSOLUTE AUTO 6.49 K/mm3 (1.96-9.15); NEUTROPHILS PERCENT AUTO 88 % (41-73); Platelet Count 209 K/mm3 (150-400); RDW Coefficient Variation 13.3 % (11.7-14.2); RDW Standard Deviation 47.5 fL (35.1-46.3); Red Blood Cell Count 4.72 M/mm3 (4.30-5.90); White Blood Cell Count 7.41 K/mm3 (4.00-11.30)
--- NOTE | 2021-06-22 16:02 | NUR ---
SHIFT SUMMARY PT AWAKE AT START OF SHIFT. UP TO EOB WANTING TO GO TO THE [facility]; PT IMPATIENT AT TIMES. UP WITH 2P ASSIST USING FWW AND GB AT START OF SHIFT. PT'S MOBILITY IMPROVED LATER IN THE AM. LAB CALLED WITH + [facility]. PHARMACY NOTIFIED FOR ABX COVERAGE. PHARMACY REPORTED PT MAY NEED DIFFERENT ABX COVERAGE AND TO NOTIFY DOCTOR. DR CHEN NOTIFIED OF + [facility]. NEW ORDERS PLACED; IV VANCO RECEIVED AND GIVEN PER EMAR. DR GOMEZ IN TO CK ON PT. PT TO STAY AT LEAST ONE MORE DAY. PT UPDATED ON PLAN OF CARE. PT HOPING TO GO HOME TODAY, BUT WILLING TO STAY TO GET BETTER. PER REPORT, PT FROM [place] [facility]. HX OF DEMENTIA, A-FIB, CVA, AND RECENT R HIP SX. BLE'S RED AND DRY. PT HAS MOSTLY BEEN PLEASANT AND CO-OP, BUT CAN GET VERY AGITATED AND ANGRY VERY QUICKLY OVER LITTLE THINGS. LIDOCAINE PATCH TO R HIP, OTHERWISE NO C/O PAIN. BED AND CHAIR ALARMS ON FOR SAFETY. CALL LT IN REACH.
--- NOTE | 2021-06-23 05:40 | NUR ---
SHIFT SUMMARY AOX3-SELF, PLACE, FOLLOWING DIRECTIONS, SITUATION. ONLY FORGETFUL OF DATE TONIGHT. MORE PLEASENT & COOPERATIVE, LESS IMPULSIVE. USED CALL LIGHT FREQUENTLY WHILE AWAKE. IND c URINAL WHILE IN BED. BP ELEVATED @HS 172/98, GAVE HS SCHEDULED METOPROLOL & TRENDED DOWN TO 150'S SYSTOLIC. REST OF VITALS STABLE. DENIES N/V OR DYSPNEA. REPORTED 8/10 PAIN IN R HIP THIS AM, MEDICATED c TYLENOL, REPOSITIONED & APPLIED HEATING PAD, ABLE TO FALL BACK ASLEEP. CALL LIGHT & BED ALARM IN PLACE. PT STATES HE IS HOPING TO DC BACK "HOME" TODAY.
[2021-06-24 04:59] LABS: Anion Gap 6 mmol/L (6-16); Blood Urea Nitrogen 35 mg/dL (8-24); Bun/Creatinine Ratio 55.8 (12.0-20.0); CO2, Blood 36 mmol/L (21-32); Chloride, Blood 97 mmol/L (98-108); Creatinine, Blood 0.63 mg/dL (0.60-1.20); Glomerular Filtration Rate >60 (60-); Glucose, Blood 193 mg/dL (70-99); Potassium, Blood 3.5 mmol/L (3.5-5.5); Sodium, Blood 139 mmol/L (136-145)
--- NOTE | 2021-06-24 06:21 | NUR ---
Shift Summary Patient BP 164/110 post night med BP 133/89. BP at 0349 was 167/90, pt asymptomatic. Trends reviewed, will endorse to oncoming RN. No acute changes. Patient continent of urine using urinal however tends to spill. Alert and oriented to self. Patient slept well throughout the night.
[2021-06-24] MEDS ORDERED: Ampicillin Sodiu2 G1 IV (14:39)
[2021-06-24] MEDS ORDERED: DELTASONE20 MG PO (14:41)
[2021-06-24] MEDS ORDERED: VISBIOME 112.51 EACH PO (14:41)
[2021-06-24 15:15] LABS: Influenza A, PCR NEGATIVE (NEGATIVE); Influenza B, PCR NEGATIVE (NEGATIVE); Resp Syncytial Virus, PCR NEGATIVE (NEGATIVE); SARS-Cov-2 (COVID-19) PCR, MMC NEGATIVE (NEGATIVE)
--- NOTE | 2021-06-25 08:17 | NUR ---
Patient is a [facility] patient who was transferred to [facility] on 06/19/2021 due to pneumonia. Patient has now discharged to SNF ([facility]). Notified [facility] miller rod mill (Ayesha Montanez) of the above. No further interventions required. Roxann Berrios Referral Liaison
--- NOTE | 2021-06-25 09:20 | NUR ---
Late note from 06/24/21. Patient is sitting on a chair and alert. Patient tells me again that he wants to "go home to be with Mirza." He explains about the frustrations of his poor quality of life and that he is emotionally and physically exhausted. We explore at length meaning and purpose for life, the good things that he still has present in his life and the positive atributes that he has yet to contribute. He also gets very emotional in discussing the [place] people and the devastation they must be experiencing. I provide therapeutic listening and (at the request of the pt) prayer for the [place] people and for the pt's peace and aparna in this season. Patient responds very well to all interventions and shows signs of greater hope and sense of meaning. I will continue to remain available to pateitn and family.
== END 2021-06-24 16:30 | DRG 871 ==
LOC: ER 22:12 → PCU 23:58 → ER 06-19 00:56 → PCU 06-19 01:14 → MEDS 06-21 21:00
PROVIDERS: Emergency Medicine; Family Medicine; ADMIT Family Medicine
DX: A41.81 Sepsis due to Enterococcus (principal); J18.9 Pneumonia, unspecified organism; J96.01 Acute respiratory failure with hypoxia; J44.0 Chronic obstructive pulmonary disease with (acute) lower respiratory infection; I48.20 Chronic atrial fibrillation, unspecified; E87.1 Hypo-osmolality and hyponatremia; G30.9 Alzheimer's disease, unspecified; F02.80 Dementia in other diseases classified elsewhere, unspecified severity, without behavioral disturbance, psychotic disturbance, mood disturbance, and anxiety; D64.9 Anemia, unspecified; Z66 Do not resuscitate; R73.9 Hyperglycemia, unspecified; T38.0X5A Adverse effect of glucocorticoids and synthetic analogues, initial encounter; Z88.8 Allergy status to other drugs, medicaments and biological substances; Z86.16 Personal history of COVID-19; E83.52 Hypercalcemia; Z98.41 Cataract extraction status, right eye; Z79.899 Other long term (current) drug therapy
CPT/HCPCS: 0241U; 36415; 71045; 80048; 80053; 82947; 83605; 83880; 85014; 85018; 85025; 87040; 87077; 87186; 93005; 93010; 94640; 94664; 94760; 96365; 96375; 97110; 97116; 97162; 97530; 99285-25; A9270; J0290; J0696; J2543; J2930; J3370; J7030; J7050

== ENCOUNTER → 2021-07-09 | Outpatient (CLI) | payer OTHER ==
[~2021-07-09] MED LIST changes: +Ampicillin Sodiu2 G1 IV; +DELTASONE20 MG PO; +VISBIOME 112.51 EACH PO
[2021-07-09 19:00] LABS: BASOPHILS ABSOLUTE AUTO 0.07 K/mm3 (0.00-0.23); BASOPHILS PERCENT AUTO 1 % (0-2); EOSINOPHILS ABSOLUTE AUTO 0.36 K/mm3 (0.00-0.68); EOSINOPHILS PERCENT AUTO 5 % (0-6); Hematocrit 43.4 % (37.0-53.0); Hemoglobin 13.8 g/dL (13.5-17.5); IMMATURE GRAN ABSOLUTE AUTO 0.03 K/mm3 (0.00-0.10); IMMATURE GRAN PERCENT AUTO 0 % (0-1); LYMPHOCYTES ABSOLUTE AUTO 2.25 K/mm3 (0.84-5.20); LYMPHOCYTES PERCENT AUTO 28 % (21-46); MONOCYTES ABSOLUTE AUTO 0.62 K/mm3 (0.16-1.47); MONOCYTES PERCENT AUTO 8 % (4-13); Mean Corpuscular HGB 29.7 pg (26.0-34.0); Mean Corpuscular HGB Conc 31.8 g/dL (31.5-36.5); Mean Corpuscular Volume 94 fL (80-100); Mean Platelet Volume 11.1 fL (9.1-12.4); NEUTROPHILS ABSOLUTE AUTO 4.75 K/mm3 (1.96-9.15); NEUTROPHILS PERCENT AUTO 59 % (41-73); Platelet Count 182 K/mm3 (150-400); RDW Coefficient Variation 13.4 % (11.7-14.2); RDW Standard Deviation 45.5 fL (35.1-46.3); Red Blood Cell Count 4.64 M/mm3 (4.30-5.90); White Blood Cell Count 8.08 K/mm3 (4.00-11.30)
[2021-07-09 19:12] LABS: Alanine Aminotransfer (ALT/SGP 39 U/L (12-78); Albumin, Blood 2.7 g/dL (3.4-5.0); Albumin/Globulin Ratio 0.6 (0.8-1.8); Alk Phos 143 U/L (50-136); Anion Gap 5 mmol/L (6-16); Aspartate Aminotrans (AST/SGOT 21 U/L (12-37); Bilirubin, Total 0.2 mg/dL (0.1-1.0); Blood Urea Nitrogen 17 mg/dL (8-24); Bun/Creatinine Ratio 22.1 (12.0-20.0); CO2, Blood 30 mmol/L (21-32); Calcium, Blood 9.7 mg/dL (8.5-10.1); Chloride, Blood 102 mmol/L (98-108); Creatinine, Blood 0.77 mg/dL (0.60-1.20); Globulin, Blood 4.3 g/dL (2.2-4.0); Glomerular Filtration Rate >60 (60-); Glucose, Blood 91 mg/dL (70-99); Potassium, Blood 4.2 mmol/L (3.5-5.5); Sodium, Blood 137 mmol/L (136-145)
== END ==
LOC: LAB SHORT 17:41
PROVIDERS: Nurse Practitioner Family
DX: I10 Essential (primary) hypertension (principal); R73.01 Impaired fasting glucose
CPT/HCPCS: 80053; 83036; 85025

== ENCOUNTER 2021-09-20 11:02 | Emergency (ER) | payer OTHER ==
[~2021-09-20] VITALS: Ht 177.8 cm; Wt 104.3 kg
[2021-09-20 11:23] LABS: BASOPHILS ABSOLUTE AUTO 0.08 K/mm3 (0.00-0.23); BASOPHILS PERCENT AUTO 1 % (0-2); EOSINOPHILS ABSOLUTE AUTO 0.26 K/mm3 (0.00-0.68); EOSINOPHILS PERCENT AUTO 3 % (0-6); Hematocrit 42.5 % (37.0-53.0); Hemoglobin 13.4 g/dL (13.5-17.5); IMMATURE GRAN ABSOLUTE AUTO 0.04 K/mm3 (0.00-0.10); IMMATURE GRAN PERCENT AUTO 1 % (0-1); LYMPHOCYTES ABSOLUTE AUTO 2.38 K/mm3 (0.84-5.20); LYMPHOCYTES PERCENT AUTO 29 % (21-46); MONOCYTES PERCENT AUTO 11 % (4-13); Mean Corpuscular HGB 29.8 pg (26.0-34.0); Mean Corpuscular HGB Conc 31.5 g/dL (31.5-36.5); Mean Corpuscular Volume 95 fL (80-100); Mean Platelet Volume 10.1 fL (9.1-12.4); NEUTROPHILS ABSOLUTE AUTO 4.61 K/mm3 (1.96-9.15); NEUTROPHILS PERCENT AUTO 56 % (41-73); Platelet Count 151 K/mm3 (150-400); RDW Coefficient Variation 14.8 % (11.7-14.2); RDW Standard Deviation 52.3 fL (35.1-46.3); Red Blood Cell Count 4.49 M/mm3 (4.30-5.90); White Blood Cell Count 8.27 K/mm3 (4.00-11.30)
[2021-09-20 11:40] LABS: Albumin, Blood 3.2 g/dL (3.4-5.0); Albumin/Globulin Ratio 0.7 (0.8-1.8); Bilirubin, Total 0.3 mg/dL (0.1-1.0); Bun/Creatinine Ratio 25.2 (12.0-20.0); C-REACTIVE PROTEIN, EXT RANGE 2.6 mg/dL (0.000-0.300); Calcium, Blood 10.1 mg/dL (8.5-10.1); Creatinine, Blood 0.83 mg/dL (0.60-1.20); Globulin, Blood 4.8 g/dL (2.2-4.0); Potassium, Blood 4.1 mmol/L (3.5-5.5)
== END 2021-09-20 15:07 | disposition home or self-care (01) ==
LOC: ER 11:02
PROVIDERS: Student in an Organized Health Care Education/Training Program
DX: I87.2 Venous insufficiency (chronic) (peripheral) (principal); I10 Essential (primary) hypertension; F03.90 Unspecified dementia, unspecified severity, without behavioral disturbance, psychotic disturbance, mood disturbance, and anxiety; J44.9 Chronic obstructive pulmonary disease, unspecified; Z66 Do not resuscitate; Z79.899 Other long term (current) drug therapy; Z79.01 Long term (current) use of anticoagulants; Z88.8 Allergy status to other drugs, medicaments and biological substances
CPT/HCPCS: 36415; 71045; 80053; 83605; 83880; 84145; 85025; 85651; 86140; 93005; 93010; 93970; 94640; 94664; 99285-25

== ENCOUNTER 2021-09-24 15:07 | Emergency (ER) | payer OTHER ==
[~2021-09-24] VITALS: Ht 175.3 cm; Wt 108.9 kg
== END 2021-09-24 18:10 | disposition home or self-care (01) ==
LOC: ER 15:07
DX: I87.8 Other specified disorders of veins (principal); R21 Rash and other nonspecific skin eruption; I48.91 Unspecified atrial fibrillation; I10 Essential (primary) hypertension; J44.9 Chronic obstructive pulmonary disease, unspecified; Z88.8 Allergy status to other drugs, medicaments and biological substances; Z79.899 Other long term (current) drug therapy; Z79.01 Long term (current) use of anticoagulants; Z86.73 Personal history of transient ischemic attack (TIA), and cerebral infarction without residual deficits
CPT/HCPCS: 99283

== ENCOUNTER 2022-01-12 14:20 | Inpatient (IN) | payer OTHER ==
[~2022-01-12] VITALS: Ht 182.9 cm; Wt 104.0 kg
[2022-01-12] MEDS ORDERED: CIPR250 PO (15:21)
[2022-01-12 17:48] LABS: BASOPHILS ABSOLUTE AUTO 0.08 K/mm3 (0.00-0.23); BASOPHILS PERCENT AUTO 1 % (0-2); EOSINOPHILS ABSOLUTE AUTO 0.24 K/mm3 (0.00-0.68); EOSINOPHILS PERCENT AUTO 2 % (0-6); Hematocrit 41.5 % (37.0-53.0); Hemoglobin 13.3 g/dL (13.5-17.5); IMMATURE GRAN ABSOLUTE AUTO 0.03 K/mm3 (0.00-0.10); IMMATURE GRAN PERCENT AUTO 0 % (0-1); LYMPHOCYTES ABSOLUTE AUTO 2.33 K/mm3 (0.84-5.20); LYMPHOCYTES PERCENT AUTO 22 % (21-46); MONOCYTES ABSOLUTE AUTO 0.98 K/mm3 (0.16-1.47); MONOCYTES PERCENT AUTO 9 % (4-13); Mean Corpuscular Volume 94 fL (80-100); Mean Platelet Volume 10.1 fL (9.1-12.4); NEUTROPHILS ABSOLUTE AUTO 6.75 K/mm3 (1.96-9.15); NEUTROPHILS PERCENT AUTO 65 % (41-73); Platelet Count 187 K/mm3 (150-400); RDW Coefficient Variation 14.3 % (11.7-14.2); RDW Standard Deviation 49.5 fL (35.1-46.3); Red Blood Cell Count 4.43 M/mm3 (4.30-5.90); White Blood Cell Count 10.41 K/mm3 (4.00-11.30)
[2022-01-12 18:05] LABS: Albumin, Blood 3.1 g/dL (3.4-5.0); Albumin/Globulin Ratio 0.6 (0.8-1.8); Bilirubin, Total 0.4 mg/dL (0.1-1.0); Bun/Creatinine Ratio 19.7 (12.0-20.0); Calcium, Blood 10.4 mg/dL (8.5-10.1); Creatinine, Blood 0.81 mg/dL (0.60-1.20); Potassium, Blood 3.7 mmol/L (3.5-5.5); Total Protein, Blood 8.1 g/dL (6.4-8.2)
[2022-01-13 04:49] LABS: BASOPHILS ABSOLUTE AUTO 0.07 K/mm3 (0.00-0.23); BASOPHILS PERCENT AUTO 1 % (0-2); EOSINOPHILS PERCENT AUTO 2 % (0-6); Hematocrit 40.5 % (37.0-53.0); IMMATURE GRAN ABSOLUTE AUTO 0.04 K/mm3 (0.00-0.10); IMMATURE GRAN PERCENT AUTO 0 % (0-1); LYMPHOCYTES ABSOLUTE AUTO 1.75 K/mm3 (0.84-5.20); LYMPHOCYTES PERCENT AUTO 15 % (21-46); MONOCYTES ABSOLUTE AUTO 0.99 K/mm3 (0.16-1.47); MONOCYTES PERCENT AUTO 9 % (4-13); Mean Corpuscular HGB Conc 32.1 g/dL (31.5-36.5); Mean Corpuscular Volume 93 fL (80-100); Mean Platelet Volume 10.2 fL (9.1-12.4); NEUTROPHILS ABSOLUTE AUTO 8.64 K/mm3 (1.96-9.15); NEUTROPHILS PERCENT AUTO 74 % (41-73); Platelet Count 188 K/mm3 (150-400); RDW Coefficient Variation 14.3 % (11.7-14.2); RDW Standard Deviation 48.9 fL (35.1-46.3); Red Blood Cell Count 4.34 M/mm3 (4.30-5.90); White Blood Cell Count 11.69 K/mm3 (4.00-11.30)
[2022-01-13 05:49] LABS: Bun/Creatinine Ratio 17.4 (12.0-20.0); Calcium, Blood 9.9 mg/dL (8.5-10.1); Creatinine, Blood 0.86 mg/dL (0.60-1.20); Potassium, Blood 4.1 mmol/L (3.5-5.5)
--- NOTE | 2022-01-13 08:20 | NUR ---
SUMMARY ADMITTED TONIGHT POST CHEST TUBE PLACEMENT-R ABT CT TO SX WITH YONYO-LEONORA MACK. PT WHEEZING AND HAS HAD RT TX.PT HAS HX COPD, ASTHMA AND PULMONARY FIBROSIS. I HAVE BEEN UNABLE TO FULLY COMPLETE HX DUE TO PTS DEMENTIA.I OBTAINED WHAT I WAS ABLE TO FROM PRIOR RECORDS.PT CURRENTLY WITH NO C/O SOB.PROD COUGH WITH SWALLOWING SO FAR. SPITTING CLEAR SPIT OUT.CHEST TUBE DRESSING WITH BLEEDING UNDERNEATH TAPE VISIBLE. PT ON ELIQUS OPRIOR TO ADMIT.PT AT TIMES ATTEMPTS OOB ,OTHER TIMES PULLING AT TUBES.CLOSE OBSERVATION MAINTAINED.
--- NOTE | 2022-01-13 11:39 | NUR ---
SPIRITUAL CARE IN TO SEE PT.
--- NOTE | 2022-01-13 11:51 | NUR ---
Pt is lying in bed and alert. He is confused and talks about needing to retire soon and that I am going to need to take over for him. He is clear that he lives at [facility] and that he has a strong Christianity jessie. He tells me stories that may be accurate but clearly the time frames are off. He talks about living a full life, traveling the world and being ready to when God calls him home. I encourage self-care, hear confession and provide therapeutic listening, pastoral senior vice president & general counsel and prayer. Pt responds well and shows signs of an elevated mood.
[2022-01-14 06:26] LABS: Hematocrit 38.9 % (37.0-53.0); Hemoglobin 12.6 g/dL (13.5-17.5); Mean Corpuscular HGB 30.7 pg (26.0-34.0); Mean Corpuscular HGB Conc 32.4 g/dL (31.5-36.5); Mean Corpuscular Volume 95 fL (80-100); Mean Platelet Volume 10.2 fL (9.1-12.4); Platelet Count 188 K/mm3 (150-400); RDW Coefficient Variation 14.5 % (11.7-14.2); RDW Standard Deviation 50.1 fL (35.1-46.3); White Blood Cell Count 8.67 K/mm3 (4.00-11.30)
[2022-01-14 06:47] LABS: Albumin, Blood 2.6 g/dL (3.4-5.0); Albumin/Globulin Ratio 0.6 (0.8-1.8); Bilirubin, Total 0.8 mg/dL (0.1-1.0); Calcium, Blood 10.3 mg/dL (8.5-10.1); Creatinine, Blood 0.76 mg/dL (0.60-1.20); Globulin, Blood 4.6 g/dL (2.2-4.0); Potassium, Blood 3.9 mmol/L (3.5-5.5); Total Protein, Blood 7.2 g/dL (6.4-8.2)
--- NOTE | 2022-01-14 07:48 | NUR ---
SUMMARY REINFORCED R ANT DRESSING TONIGHT.PT WITH HX ELIQUIS 2X DAY PRIOR TO ADMIT. CXR BEING DONE AT THIS TIME. PT HAS FULLNES TO R FA,THIS FULLNESS IS FIRM TO TOUCH. DAY RN AGREES TO F/U WITH BRINGING THIS TO DR ATTENTION DURING ROUNDING.
--- NOTE | 2022-01-14 08:01 | NUR ---
IMAGING AT BEDSIDE AT 0750, CHEST X-RAY TAKEN
--- NOTE | 2022-01-14 08:17 | NUR ---
ATTEMPTED TO CALL DR. POPE FOR NEW CONSULT. DR. POPE CURRENTLY IN A PROCEDURE. MESSAGE LEFT WITH RN.
--- NOTE | 2022-01-14 17:03 | NUR ---
SUMMARY: NO CHANGE TODAY, VSS, PT ORIENTED X3. FORGETFUL AT TIMES, EASILY REORIENTED. BED ALARM ON. PT HAS BEEN DROWSY TODAY AND SLEPT FREQUENTLY. AWAKENS EASILY. PT STABLE ON RA, GETS SOB WITH MOVEMENT, PRN ALBUTEROL GIVEN AND 1L O2. PT ENCOURAGED TO USE I.S. CHEST TUBE SITE AND SUCTION WNL. 20ML OF SS DRAINAGE OUT TODAY. PLAN IS TO CHANGE CT TO WATER SEAL TONIGHT AT 0000. NO ACUTE SAFETY CONCERNS.
--- NOTE | 2022-01-15 00:07 | NUR ---
CHEST TUBE SWITCHED TO WATERSEAL PER ORDER. SUCTION TURNED OFF. PATIENT LUNG SOUNDS ARE UNCHANGED FROM START OF SHIFT ASSESSMENT. EXPIRATORY WHEEZES AND COURSE SOUNDS IN UPPER LOBES. PATIENTS REPORTS WOB IS UNCHANGED. SATS AT 94% ON 1L NC. VSS, HEART RATE REMAINS IRREGULAR IN UPPER 90'S TO 105.
--- NOTE | 2022-01-15 04:26 | NUR ---
SHIFT SUMMARY PATIENT AOX2 T/O SHIFT, CONFUSED AT TIMES BUT REDIRECTS EASILY. PATIENT NOTED TO HAVE DISTENDED,FIRM ABD, SMALL LIQUID STOOL THIS SHIFT. WHILE TURNING TO HIS SIDE PATIENT VOMITS WHITE MILK CONSISTENT LIQUID AND PROCEEDS TO COUGH UP COPIOUS AMOUNTS OF THICK SPUTUM. LUNGS SOUNDS ARE DIMINISHED WITH EXPIRATORY WHEEZES T/O. PATIENT REPORTS PAIN " UNDER RIGHT ARM". CHEST DRAINAGE TO WATERSEAL AT MIDNIGHT PER ORDERS. LUNG SOUNDS REMAIN UNCHANGED, PATIENT DOES NOT SEEM TO BE IN DISTRESS, NO INCREASED WOB. DENIES CHEST PRESSURE. SATING AT 94% ON 1 L NC. RR AT 16 WHILE SLEEPING. PATIENT VOIDS SEVERAL TIMES T/O SHIFT. REPOSITIONS WITH 2 ASSIST. BEDALARM ON FOR SAFETY. ABLE TO USE CALL LIGHT APROPRIATELY. VSS.
[2022-01-15 04:58] LABS: Hematocrit 41.1 % (37.0-53.0); Mean Corpuscular HGB Conc 31.6 g/dL (31.5-36.5); Mean Corpuscular Volume 95 fL (80-100); Mean Platelet Volume 10.5 fL (9.1-12.4); Platelet Count 210 K/mm3 (150-400); RDW Coefficient Variation 14.3 % (11.7-14.2); RDW Standard Deviation 49.4 fL (35.1-46.3); Red Blood Cell Count 4.34 M/mm3 (4.30-5.90); White Blood Cell Count 9.29 K/mm3 (4.00-11.30)
[2022-01-15 05:44] LABS: Bun/Creatinine Ratio 27.6 (12.0-20.0); Calcium, Blood 10.2 mg/dL (8.5-10.1); Creatinine, Blood 0.72 mg/dL (0.60-1.20)
--- NOTE | 2022-01-16 04:35 | NUR ---
POD4 FOR A RIGHT CHEST TUBE INSERTION. VSS. DRESSING IS C/D/I. TUBE HAS BEEN CLAMPED SINCE 0000 ON 01/16 FOR AN AM CHEST XRAY. THE PATIENT DID NOT EXPERIENCE ANY SOB OR LOW O2 SATURATIONS AFTER CLAMPING. REMAINING ON 2L OR T/O THE NIGHT. THE0 PATIENT SLEPT ON AND OFF T/O THE NIGHT, CALLING OUT OCCASIONALLY DUE TO CONFUSION. PT WAS INCONTINENT T/O THE NIGHT, REQUIRING MULTIPLE BRIEF CHANGES, 2-3P MAX. PT C/O RIGHT CHEST PAIN WITH DEEP INSPIRATION AND MOVEMENT, MEDICATED WITH TYLENOL. MEPILEX PLACED DUE TO REDDNESS NOTED ON COCCYX. PLAN FOR PT TO HAVE CHEST XRAY EVALUATED TODAY AND POTENTIALLY HAVE THE CHEST TUBE REMOVED, D/C TO [place] [address] ON MONDAY. THE PATIENT IS CURRENTLY RESTING, IN NO DISTRESS, CALL LIGHT IN REACH. BED ALARM ON FOR SAFETY.
--- NOTE | 2022-01-16 19:17 | NUR ---
SHIFT SUMMARY S/P R PNEUMOTHORAX, CHEST TUBE REMOVED THIS SHIFT AND NO NOTED CHANGE TO PT RESPIRATORY STATUS, OCCASIONAL COUGH PRODUCING SMALL TO MODERATE AMT OF CLEAR/YELLOW-GISSELLE MUCUS, SATS STAYED OVER 90 T/O THE SHIFT, INCONTINENT AND CHANGED NEEDED BY STAFF. PT CLEARED BY SURGERY FOR DISCHARGE AND NOW AWAITING APPROVAL FROM MEDICINE PHYSICIAN. INTERNITTENT CONFUSION WHICH IS CONGRUENT WITH PATIENTS BASELINE OF DEMENTIA. NO ACUTE EVENTS THIS SHIFT, CALL LIGHT IN REACH, REPORT GIVEN TO NOC RN.
--- NOTE | 2022-01-17 04:58 | NUR ---
POD1 FOR THE REMOVAL OF A RIGHT CHEST TUBE. VSS. DRESSING REMAINS C/D/I. REDDNESS NOTED WHERE SOME SKIN WAS REMOVED WITH THE CHEST TUBE BANDAGE, THIS IS OPEN TO AIR. MINIMAL BRUISING NOTED T/O THE RIGHT RIBS AROUND THE CURRENT DRESSING. THE PATIENT HAS NOT COMPLAINED OF SOB OR CP. O2 SATS HAVE REMAINED >95%. PT HAS SLEPT ON AND OFF TONIGHT, YELLING OUT OCCASIONALLY DUE TO CONFUSION. BUT OVERALL HAS REMAINED PLEASENT. INCONTINENT T/O THE NIGHT, TWO MAX ASSIST IN BED. REPOSITIONED Q2 TOLLERATED. TOLLERATING PO INTAKE. PLAN FOR MEDICAL TO ASSESS IF THE PATIENT IS SAFE TO DISCHARGE BACK TO [place] [address]. THE PATIENT IS CURRRENTLY SLEEPING, IN NO DISTRESS. CALL LIGHT IN REACH, BED ALARM ON FOR SAFETY.
[2022-01-17 05:18] LABS: Calcium, Blood 10.6 mg/dL (8.5-10.1); Creatinine, Blood 0.82 mg/dL (0.60-1.20); Potassium, Blood 4.2 mmol/L (3.5-5.5)
--- NOTE | 2022-01-17 13:46 | NUR ---
REPORT CALLED TO ESTHELA ACEVEDO [facility].
--- NOTE | 2022-01-17 16:35 | NUR ---
discharged REPORT CALLED [facility] TO [place]. DC'D IV, CATHETER INTACT. PT LEFT UNIT IN WC VIA TRANSPORT, HAD POSSESSIONS IN BAG ON LAP.
[2022-01-17] MEDS ORDERED: ALBU90OI INH (20:33)
[2022-01-17] MEDS ORDERED: ACET500 PO (21:58)
== END 2022-01-17 16:31 | disposition home or self-care (01) | DRG 191 ==
LOC: ER 14:20 → SURS 23:21
PROVIDERS: Internal Medicine; Student in an Organized Health Care Education/Training Program; ADMIT Family Medicine
PROC: 0W9900Z Drainage of Right Pleural Cavity with Drainage Device, Open Approach (ICD-10-PCS; principal; 2022-01-12)
DX: J44.9 Chronic obstructive pulmonary disease, unspecified (principal); E87.1 Hypo-osmolality and hyponatremia; J93.12 Secondary spontaneous pneumothorax; I48.20 Chronic atrial fibrillation, unspecified; G30.9 Alzheimer's disease, unspecified; F02.80 Dementia in other diseases classified elsewhere, unspecified severity, without behavioral disturbance, psychotic disturbance, mood disturbance, and anxiety; Z66 Do not resuscitate; I10 Essential (primary) hypertension; D64.9 Anemia, unspecified; K21.9 Gastro-esophageal reflux disease without esophagitis; Z86.73 Personal history of transient ischemic attack (TIA), and cerebral infarction without residual deficits; Z87.81 Personal history of (healed) traumatic fracture; Z87.19 Personal history of other diseases of the digestive system; Z98.41 Cataract extraction status, right eye; Z97.8 Presence of other specified devices; Z88.8 Allergy status to other drugs, medicaments and biological substances; Z79.2 Long term (current) use of antibiotics; Z79.52 Long term (current) use of systemic steroids; Z79.811 Long term (current) use of aromatase inhibitors; Z79.899 Other long term (current) drug therapy; Z79.01 Long term (current) use of anticoagulants
CPT/HCPCS: 32551; 36415; 71045; 80048; 80053; 85025; 85027; 93005; 93010; 94640; 94664; 94760; 94761; 96374-59; 99285-25; A9270; J3010

== ENCOUNTER 2022-01-23 11:45 | Emergency (ER) | payer OTHER ==
[~2022-01-23] VITALS: Ht 180.3 cm; Wt 104.3 kg
[~2022-01-23 11:45] MED LIST changes: +ACET500 PO; +CIPR250 PO
[2022-01-23 12:37] LABS: BASOPHILS ABSOLUTE AUTO 0.06 K/mm3 (0.00-0.23); BASOPHILS PERCENT AUTO 1 % (0-2); EOSINOPHILS ABSOLUTE AUTO 0.26 K/mm3 (0.00-0.68); EOSINOPHILS PERCENT AUTO 3 % (0-6); Hematocrit 37.9 % (37.0-53.0); IMMATURE GRAN ABSOLUTE AUTO 0.03 K/mm3 (0.00-0.10); IMMATURE GRAN PERCENT AUTO 0 % (0-1); LYMPHOCYTES ABSOLUTE AUTO 1.69 K/mm3 (0.84-5.20); LYMPHOCYTES PERCENT AUTO 22 % (21-46); MONOCYTES ABSOLUTE AUTO 0.73 K/mm3 (0.16-1.47); MONOCYTES PERCENT AUTO 9 % (4-13); Mean Corpuscular HGB 30.5 pg (26.0-34.0); Mean Corpuscular HGB Conc 31.7 g/dL (31.5-36.5); Mean Corpuscular Volume 96 fL (80-100); Mean Platelet Volume 10.2 fL (9.1-12.4); NEUTROPHILS ABSOLUTE AUTO 5.08 K/mm3 (1.96-9.15); NEUTROPHILS PERCENT AUTO 65 % (41-73); Platelet Count 237 K/mm3 (150-400); RDW Coefficient Variation 13.8 % (11.7-14.2); RDW Standard Deviation 49.2 fL (35.1-46.3); Red Blood Cell Count 3.94 M/mm3 (4.30-5.90); White Blood Cell Count 7.85 K/mm3 (4.00-11.30)
[2022-01-23 12:49] LABS: Bun/Creatinine Ratio 31.7 (12.0-20.0); Creatinine, Blood 0.63 mg/dL (0.60-1.20); Potassium, Blood 3.7 mmol/L (3.5-5.5)
--- NOTE | 2022-01-23 15:28 | NUR ---
This pt came to the ER with increased weakness, chest pain and SOB. He tells the ER physician he is "tired". He states to Dr Valles he does not want to continue coming to the hospital. The pt lives at [facility], does have a diagnosis of dementia. However, he is self aware and able to make basic decisions for himself. I also spoke to pt as well as Cherie, senior sales administrator of [facility]. She reports [facility] get [facility] ordered. He is on 2L at [facility]. Dr. Valles did place an order for hospice to give to the facility. Plan to refer to hospice ellie.
== END 2022-01-23 15:20 | disposition home or self-care (01) ==
LOC: ER 11:45
PROVIDERS: Emergency Medicine
DX: J44.1 Chronic obstructive pulmonary disease with (acute) exacerbation (principal); F03.90 Unspecified dementia, unspecified severity, without behavioral disturbance, psychotic disturbance, mood disturbance, and anxiety; J84.9 Interstitial pulmonary disease, unspecified; I10 Essential (primary) hypertension; Z88.8 Allergy status to other drugs, medicaments and biological substances; Z79.899 Other long term (current) drug therapy; Z86.73 Personal history of transient ischemic attack (TIA), and cerebral infarction without residual deficits
CPT/HCPCS: 71045; 80048; 85025; 93005; 93010